=== PATIENT | female | born 1945 | race Caucasian/White ===

== ENCOUNTER 2022-11-30 15:27 | Inpatient (IN) | payer MEDICARE ==
[2022-11-30 19:21] LABS: Absolute Neutrophil Ct (ANC) 11.57 x10^3/uL (1.4-6.9); Basophil (Absolute #) 0.02 x10^3/uL (0-0.4); Eosinophil % 0.1 % (0.00-5.0); Eosinophil (Absolute #) 0.01 x10^3/uL (0-0.5); Hematocrit 46.4 % (35-47); Hemoglobin 14.3 g/dL (12.0-16.0); Lymphocyte (Absolute #) 0.89 x10^3/uL (1.0-4.6); Lymphocytes % 6.4 % (24.0-44.0); Mean Cell Volume 97.5 fL (78-100); Mean Corpuscular Hgb Concent. 30.8 g/dL (32-36); Mean Platelet Volume 11.6 fL (7.5-11.0); Monocyte (Absolute #) 1.34 x10^3/uL (0.0-1.3); Monocytes % 9.6 % (0.0-12.0); Neutrophil % 83.3 % (36.0-66.0); Platelet Count 349 x10^3/uL (150-450); Red Blood Count 4.76 x10^6/uL (4.1-5.4); Red Cell Distribution Width 15.8 % (11.5-14.0); White Blood Count 13.9 x10^3/uL (4.0-10.5)
[2022-11-30 19:35] LABS: ANION GAP 14.6 MEQ/L (5-15); BILIRUBIN,TOTAL 1.5 mg/dL (0.2-1.3); Calcium 9.2 mg/dL (8.4-10.2); Creatinine 1 1.3 mg/dL (0.52-1.04); EST GLOMERULAR FILTRATION RATE 42.4 ML/MIN; Potassium 4.2 mmol/L (3.5-5.1); Total Protein 7.1 g/dL (6.3-8.2)
[2022-11-30 20:06] LABS: INFLUENZA A NEGATIVE (NEGATIVE); INFLUENZA B NEGATIVE (NEGATIVE); RESPIRATORY SYNCTIAL VIRUS NEGATIVE (Negative); SARS-CoV-2 Xpert Express NEGATIVE (NEGATIVE)
[2022-11-30] MEDS ORDERED: Lasix 40 MG/4 ML IV SCH (21:30)
[2022-11-30] MEDS: Lactated Ringers 1,000 ML IV SCH (21:59)
[2022-11-30] MEDS ORDERED: ROCEPHIN 1 Gm-D5w 50 ml Bag** 1 G/50 ML IVPB IV SCH (22:00)
[2022-11-30 23:09] LABS: Appearance Cloudy (Clear); Bacteria Many /HPF (None Seen); Bilirubin Negative (Negative); Blood Moderate (Negative); Epithelial Cells Few /HPF (None Seen); Glucose, Urine Negative (Negative); Ketones 15 (Negative); Leukocyte Esterase Trace (Negative); Nitrite Negative (Negative); Ph 5.5 (4.6-8.0); Protein,Urine Dip >=1000 (Negative); RBC 0-2 /HPF (0-5)
[2022-11-30 23:10] LABS: Granular Casts 0-2 /LPF (None Seen)
[2022-11-30 23:56] LABS: ADD URINE CULTURE? ORDERED SEPARATELY (NO)
[2022-11-30] MEDS: HYDROCODONE-ACETAMIN 10-325 MG PO PRN (23:56)
[2022-12-01] MEDS: MORPHINE SULFATE 2 MG INJ IV PRN ×2 (00:56→10:01)
[2022-12-01 04:38] LABS: Hematocrit 41.2 % (35-47); Hemoglobin 12.9 g/dL (12.0-16.0); Mean Cell Volume 97.4 fL (78-100); Mean Corpuscular Hemoglobin 30.5 pg (26-32); Mean Corpuscular Hgb Concent. 31.3 g/dL (32-36); Mean Platelet Volume 11.5 fL (7.5-11.0); Platelet Count 336 x10^3/uL (150-450); Red Blood Count 4.23 x10^6/uL (4.1-5.4); Red Cell Distribution Width 15.9 % (11.5-14.0); White Blood Count 14.1 x10^3/uL (4.0-10.5)
[2022-12-01 04:56] LABS: ALBUMIN 3.3 g/dL (3.5-5.0); ANION GAP 11.2 MEQ/L (5-15); BILIRUBIN,TOTAL 1.2 mg/dL (0.2-1.3); Calcium 8.8 mg/dL (8.4-10.2); Creatinine 1 1.3 mg/dL (0.52-1.04); EST GLOMERULAR FILTRATION RATE 42.4 ML/MIN; Potassium 3.9 mmol/L (3.5-5.1); Total Protein 5.8 g/dL (6.3-8.2)
[2022-12-01] MEDS: APRESOLINE 20 MG/ML INJ IV PRN ×3 (07:21→12:15)
[2022-12-01] MEDS ORDERED: Requip 0.5 MG PO PRN (07:31)
--- NOTE | 2022-12-01 08:29 | XRAY ---
Indication: Acute mental status change. Multiple contiguous axial images obtained through the head without contrast. Comparison: May 13, 2007 Age-appropriate global atrophy. No acute intracranial hemorrhage, abnormal extra-axial fluid collection, or mass effect. Fourth ventricle is midline without hydrocephalus. Aguilera-white matter differentiation preserved. Bony calvarium is intact. Again partial opacification inferior right mastoid air cells presumed inflammatory. Remaining paranasal sinuses and left mastoid air cells are clear. Impression: Again partial opacification right mastoid air cells presumed inflammatory. Continued negative CT head without contrast exam.
--- NOTE | 2022-12-01 08:29 | XRAY ---
Indication: Acute mental status change. Frequent falls. Comparison: None AP pelvis and 2 view right hip demonstrates osteopenia, minimal bilateral hip joint space narrowing, mild lower lumbar degenerative changes, and extensive scattered vascular calcifications. No other bony, articular, or soft tissue abnormalities.
--- NOTE | 2022-12-01 08:31 | XRAY ---
Indication: Acute mental status change. Fall. Comparison: None Portable chest rotated demonstrating cardiomegaly, arteriosclerotic aorta, and mild pulmonary edema. No focal infiltrate, consolidation, or large effusion. Bony thorax intact with osteopenia and mild degenerative changes.
[2022-12-01] MEDS ORDERED: NON-FORMULARY ITEM (Amlodipine Besylate [Norvasc] 10 MG Tablet) PO SCH (10:00)
[2022-12-01] MEDS ORDERED: Neurontin PO SCH (10:00)
[2022-12-01] MEDS: Furosemide 100mg/10 ml Vial IV SCH (10:01)
[2022-12-01] MEDS: CLONIDINE 0.1 MG TABLET PO SCH ×3 (10:02→22:15)
[2022-12-01] MEDS: NORVASC 5 MG PO SCH ×2 (10:03→12:39)
[2022-12-01] MEDS: PLAVIX Tablet PO SCH ×2 (10:03→12:40)
[2022-12-01] MEDS: Maxzide-25MG Tablet PO SCH ×2 (10:03→12:40)
[2022-12-01] MEDS: ECOTRIN 81 MG PO SCH ×2 (10:03→12:39)
[2022-12-01] MEDS: COREG 12.5 MG PO SCH ×3 (10:03→22:14)
[2022-12-01] MEDS: Neurontin PO SCH ×4 (10:03→22:15)
[2022-12-01] MEDS: HYDROCODONE-ACETAMIN 10-325 MG PO PRN (12:45)
--- NOTE | 2022-12-01 12:46 | PCM.HP.ADD ---
Addendum to History & Physical - History & Physical Addendum Addendum to History & Physical: This certifies that the History & Physical in the electronic chart reflects the current health status of the patient. If there are changes in the H&P these changes/exceptions are listed as follows.
--- NOTE | 2022-12-01 12:51 | PCM.NOTE ---
Date and Time: 12/01/22 1246 Subjective Assessment: Pt has not been communicating well with sister or staff. Tells nurse "NO" to many questions. Not taking pills. However, she woke up to me to voice and said she was in the hospital, and the year was 2022 (couldn't tell me which hosp or which month). Said her back hurt, she's had problems with it, and her neck hurts. Took a sip of water for sister. - Review of Systems All Other Systems: Unable due to condition Objective Exam General Appearance: no apparent distress, alert Neurologic Exam: oriented x 3, cooperative Skin Exam: normal color, warm, dry, No rash Wound Assessment: Skin/Wound Assessment Wound/Incision Assessment Start: 11/30/22 18:23 Text: Status: Active Freq: Q6H Protocol: Document 12/01/22 07:23 ZAYRA (Rec: 12/01/22 07:24 ZAYRA [id number]) Wound/Incision Assessment Right Lower Other Wound Assessment Shift Assessment Wound Type Abrasion Wound Stage Non Pressure Wound Drainage Amount None Comment OPEN TO AIR, VERY DRY SKIN NOTED TO BILATERAL LOWER LEGS, BARRIER CREAM APPLIED TO LEGS Right Hip Wound Assessment Shift Assessment Wound Type BRUISE Wound Stage Non Pressure Wound Comment PURPLE BRUISE NOTED Right Elbow Wound Assessment Shift Assessment Wound Type BRUISE Wound Stage Non Pressure Wound Comment MAROON AND PURPLE BRUISE NOTED Left Buttock Wound Assessment Shift Assessment Wound Type Pressure Ulcer Wound Stage Stage II Drainage Amount None Comment SHEARING AND REDNESS ALSO NOTED, BARRIER CREAM APPLIED Right Buttock Wound Assessment Shift Assessment Wound Type Pressure Ulcer Wound Stage Stage II Drainage Amount None Comment SHEARING AND REDNESS ALSO NOTED, BARRIER CREAM APPLIED Wound Photo Photo Taken Yes Comment: PICTURES TAKEN UPON ADMISSION, IN CHART Eye Exam: eyes nml inspection Ears, Nose, Throat Exam: moist mucous membranes Neck Exam: normal inspection Respiratory Exam: diminished breath sounds, rhonchi (vs upper airway noises), No wheezing Cardiovascular Exam: normal heart sounds, tachycardia, No murmur Gastrointestinal/Abdomen Exam: soft, tenderness (mild, RUQ, but not reproduced on exam) Extremity Exam: other (chronic venous stasis changes. trace pretibial edema) OBJECTIVE DATA Vital Signs: Vital Signs - 24 hr Temp Pulse Resp BP BP Pulse Ox 12/01/22 12:00 98.0 F 89 16 192/78 96 12/01/22 07:29 94 L 12/01/22 07:20 97.9 F 83 20 187/79 94 L 12/01/22 04:00 96.8 F 92 H 16 180/77 94 L 12/01/22 01:33 92 H 178/73 11/30/22 23:24 100.6 F 100 H 11/30/22 20:30 100.2 F 99 H 18 178/89 94 L 11/30/22 19:48 99.9 F 102 H 22 193/115 97 11/30/22 19:34 94 L 11/30/22 17:07 93 L 11/30/22 16:58 96.8 F 102 H 20 170/81 86 L Pain Assessment - Last Documented Pain Intensity 8 Pain Scale Used 0-10 Pain Scale Intake and Output: Intake & Output 11/29/22 11/30/22 12/01/22 12/02/22 11:59 11:59 11:59 11:59 Intake Total 103 Output Total 1150 Balance -1047 Weight 69.8 kg Lab Results: Lab Results-Last 24 Hours 11/30/22 11/30/22 11/30/22 Range/Units 19:15 19:15 19:15 WBC 13.9 H (4.0-10.5) x10^3/uL RBC 4.76 (4.1-5.4) x10^6/uL Hgb 14.3 (12.0-16.0) g/dL Hct 46.4 (35-47) % MCV 97.5 (78-100) fL MCH 30.0 (26-32) pg MCHC 30.8 L (32-36) g/dL RDW 15.8 H (11.5-14.0) % Plt Count 349 (150-450) x10^3/uL MPV 11.6 H (7.5-11.0) fL Gran % 83.3 H (36.0-66.0) % Immature Gran % (Auto) 0.5 H (0.00-0.4) % Nucleat RBC Rel Count 0.0 (0.00-0.1) % Eos # (Auto) 0.01 (0-0.5) x10^3/uL Immature Gran # (Auto) 0.07 H (0.00-0.03) x10^3u/L Absolute Lymphs (auto) 0.89 L (1.0-4.6) x10^3/uL Absolute Monos (auto) 1.34 H (0.0-1.3) x10^3/uL Absolute Nucleated RBC 0.00 (0.00-0.01) x10^3u/L Lymphocytes % 6.4 L (24.0-44.0) % Monocytes % 9.6 (0.0-12.0) % Eosinophils % 0.1 (0.00-5.0) % Basophils % 0.1 (0.0-0.4) % Absolute Granulocytes 11.57 H (1.4-6.9) x10^3/uL Basophils # 0.02 (0-0.4) x10^3/uL Sodium 135 L (137-145) mmol/L Potassium 4.2 (3.5-5.1) mmol/L Chloride 98 (98-107) mmol/L Carbon Dioxide 27 (22-30) mmol/L Anion Gap 14.6 (5-15) MEQ/L BUN 29 H (7-17) mg/dL Creatinine 1.30 H (0.52-1.04) mg/dL Estimated GFR 42.4 ML/MIN Glucose 91 (74-106) mg/dL Calcium 9.2 (8.4-10.2) mg/dL Total Bilirubin 1.50 H (0.2-1.3) mg/dL AST 39 H (14-36) U/L ALT 16 (0-35) U/L Alkaline Phosphatase 85 (38-126) U/L Troponin I 2.090 H* (0.000-0.034) ng/mL NT-Pro-B Natriuret Pep (0-1800) pg/mL Serum Total Protein 7.1 (6.3-8.2) g/dL Albumin 4.0 (3.5-5.0) g/dL Prealbumin (17.6-36.0) mg/dL Urine Color (Yellow) Urine Appearance (Clear) Urine pH (4.6-8.0) Ur Specific Bridgman (1.005-1.030) Urine Protein (Negative) Urine Glucose (UA) (Negative) mg/dL Urine Ketones (Negative) Urine Blood (Negative) Urine Nitrite (Negative) Urine Bilirubin (Negative) Urine Urobilinogen (0.2) mg/dL Ur Leukocyte Esterase (Negative) U Hyaline Cast (Auto) (0-2) /LPF Urine Microscopic RBC (0-5) /HPF Urine Microscopic WBC (0-5) /HPF Ur Epithelial Cells (None Seen) /HPF Urine Bacteria (None Seen) /HPF Granular Casts (None Seen) /LPF Urine Culture Reflexed (NO) Influenza Type A Ag (NEGATIVE) Influenza Type B Ag (NEGATIVE) RSV (PCR) (Negative) SARS-CoV-2 (PCR) (NEGATIVE) 11/30/22 11/30/22 11/30/22 Range/Units 19:15 19:20 Unknown WBC (4.0-10.5) x10^3/uL RBC (4.1-5.4) x10^6/uL Hgb (12.0-16.0) g/dL Hct (35-47) % MCV (78-100) fL MCH (26-32) pg MCHC (32-36) g/dL RDW (11.5-14.0) % Plt Count (150-450) x10^3/uL MPV (7.5-11.0) fL Gran % (36.0-66.0) % Immature Gran % (Auto) (0.00-0.4) % Nucleat RBC Rel Count (0.00-0.1) % Eos # (Auto) (0-0.5) x10^3/uL Immature Gran # (Auto) (0.00-0.03) x10^3u/L Absolute Lymphs (auto) (1.0-4.6) x10^3/uL Absolute Monos (auto) (0.0-1.3) x10^3/uL Absolute Nucleated RBC (0.00-0.01) x10^3u/L Lymphocytes % (24.0-44.0) % Monocytes % (0.0-12.0) % Eosinophils % (0.00-5.0) % Basophils % (0.0-0.4) % Absolute Granulocytes (1.4-6.9) x10^3/uL Basophils # (0-0.4) x10^3/uL Sodium (137-145) mmol/L Potassium (3.5-5.1) mmol/L Chloride (98-107) mmol/L Carbon Dioxide (22-30) mmol/L Anion Gap (5-15) MEQ/L BUN (7-17) mg/dL Creatinine (0.52-1.04) mg/dL Estimated GFR ML/MIN Glucose (74-106) mg/dL Calcium (8.4-10.2) mg/dL Total Bilirubin (0.2-1.3) mg/dL AST (14-36) U/L ALT (0-35) U/L Alkaline Phosphatase (38-126) U/L Troponin I (0.000-0.034) ng/mL NT-Pro-B Natriuret Pep 44514 H (0-1800) pg/mL Serum Total Protein (6.3-8.2) g/dL Albumin (3.5-5.0) g/dL Prealbumin (17.6-36.0) mg/dL Urine Color Yellow (Yellow) Urine Appearance Cloudy A (Clear) Urine pH 5.5 (4.6-8.0) Ur Specific Brid[place] 1.020 (1.005-1.030) Urine Protein >=1000 A (Negative) Urine Glucose (UA) Negative (Negative) mg/dL Urine Ketones 15 A (Negative) Urine Blood Moderate A (Negative) Urine Nitrite Negative (Negative) Urine Bilirubin Negative (Negative) Urine Urobilinogen 1.0 A (0.2) mg/dL Ur Leukocyte Esterase Trace A (Negative) U Hyaline Cast (Auto) 3-5 A (0-2) /LPF Urine Microscopic RBC 0-2 (0-5) /HPF Urine Microscopic WBC 3-5 (0-5) /HPF Ur Epithelial Cells Few (None Seen) /HPF Urine Bacteria Many A (None Seen) /HPF Granular Casts 0-2 A (None Seen) /LPF Urine Culture Reflexed ORDERED SEPARATELY (NO) Influenza Type A Ag NEGATIVE (NEGATIVE) Influenza Type B Ag NEGATIVE (NEGATIVE) RSV (PCR) NEGATIVE (Negative) SARS-CoV-2 (PCR) NEGATIVE (NEGATIVE) 12/01/22 12/01/22 12/01/22 Range/Units 04:00 04:00 04:00 WBC 14.1 H (4.0-10.5) x10^3/uL RBC 4.23 (4.1-5.4) x10^6/uL Hgb 12.9 (12.0-16.0) g/dL Hct 41.2 (35-47) % MCV 97.4 (78-100) fL MCH 30.5 (26-32) pg MCHC 31.3 L (32-36) g/dL RDW 15.9 H (11.5-14.0) % Plt Count 336 (150-450) x10^3/uL MPV 11.5 H (7.5-11.0) fL Gran % (36.0-66.0) % Immature Gran % (Auto) (0.00-0.4) % Nucleat RBC Rel Count (0.00-0.1) % Eos # (Auto) (0-0.5) x10^3/uL Immature Gran # (Auto) (0.00-0.03) x10^3u/L Absolute Lymphs (auto) (1.0-4.6) x10^3/uL Absolute Monos (auto) (0.0-1.3) x10^3/uL Absolute Nucleated RBC (0.00-0.01) x10^3u/L Lymphocytes % (24.0-44.0) % Monocytes % (0.0-12.0) % Eosinophils % (0.00-5.0) % Basophils % (0.0-0.4) % Absolute Granulocytes (1.4-6.9) x10^3/uL Basophils # (0-0.4) x10^3/uL Sodium 134 L (137-145) mmol/L Potassium 3.9 (3.5-5.1) mmol/L Chloride 98 (98-107) mmol/L Carbon Dioxide 29 (22-30) mmol/L Anion Gap 11.2 (5-15) MEQ/L BUN 31 H (7-17) mg/dL Creatinine 1.30 H (0.52-1.04) mg/dL Estimated GFR 42.4 ML/MIN Glucose 83 (74-106) mg/dL Calcium 8.8 (8.4-10.2) mg/dL Total Bilirubin 1.20 (0.2-1.3) mg/dL AST 30 (14-36) U/L ALT 14 (0-35) U/L Alkaline Phosphatase 72 (38-126) U/L Troponin I (0.000-0.034) ng/mL NT-Pro-B Natriuret Pep 89520 H (0-1800) pg/mL Serum Total Protein 5.8 L (6.3-8.2) g/dL Albumin 3.3 L (3.5-5.0) g/dL Prealbumin 8.91 L (17.6-36.0) mg/dL Urine Color (Yellow) Urine Appearance (Clear) Urine pH (4.6-8.0) Ur Specific Bridg[place] (1.005-1.030) Urine Protein (Negative) Urine Glucose (UA) (Negative) mg/dL Urine Ketones (Negative) Urine Blood (Negative) Urine Nitrite (Negative) Urine Bilirubin (Negative) Urine Urobilinogen (0.2) mg/dL Ur Leukocyte Esterase (Negative) U Hyaline Cast (Auto) (0-2) /LPF Urine Microscopic RBC (0-5) /HPF Urine Microscopic WBC (0-5) /HPF Ur Epithelial Cells (None Seen) /HPF Urine Bacteria (None Seen) /HPF Granular Casts (None Seen) /LPF Urine Culture Reflexed (NO) Influenza Type A Ag (NEGATIVE) Influenza Type B Ag (NEGATIVE) RSV (PCR) (Negative) SARS-CoV-2 (PCR) (NEGATIVE) 12/01/22 Range/Units 04:00 WBC (4.0-10.5) x10^3/uL RBC (4.1-5.4) x10^6/uL Hgb (12.0-16.0) g/dL Hct (35-47) % MCV (78-100) fL MCH (26-32) pg MCHC (32-36) g/dL RDW (11.5-14.0) % Plt Count (150-450) x10^3/uL MPV (7.5-11.0) fL Gran % (36.0-66.0) % Immature Gran % (Auto) (0.00-0.4) % Nucleat RBC Rel Count (0.00-0.1) % Eos # (Auto) (0-0.5) x10^3/uL Immature Gran # (Auto) (0.00-0.03) x10^3u/L Absolute Lymphs (auto) (1.0-4.6) x10^3/uL Absolute Monos (auto) (0.0-1.3) x10^3/uL Absolute Nucleated RBC (0.00-0.01) x10^3u/L Lymphocytes % (24.0-44.0) % Monocytes % (0.0-12.0) % Eosinophils % (0.00-5.0) % Basophils % (0.0-0.4) % Absolute Granulocytes (1.4-6.9) x10^3/uL Basophils # (0-0.4) x10^3/uL Sodium (137-145) mmol/L Potassium (3.5-5.1) mmol/L Chloride (98-107) mmol/L Carbon Dioxide (22-30) mmol/L Anion Gap (5-15) MEQ/L BUN (7-17) mg/dL Creatinine (0.52-1.04) mg/dL Estimated GFR ML/MIN Glucose (74-106) mg/dL Calcium (8.4-10.2) mg/dL Total Bilirubin (0.2-1.3) mg/dL AST (14-36) U/L ALT (0-35) U/L Alkaline Phosphatase (38-126) U/L Troponin I 1.860 H* (0.000-0.034) ng/mL NT-Pro-B Natriuret Pep (0-1800) pg/mL Serum Total Protein (6.3-8.2) g/dL Albumin (3.5-5.0) g/dL Prealbumin (17.6-36.0) mg/dL Urine Color (Yellow) Urine Appearance (Clear) Urine pH (4.6-8.0) Ur Specific Brid[place] (1.005-1.030) Urine Protein (Negative) Urine Glucose (UA) (Negative) mg/dL Urine Ketones (Negative) Urine Blood (Negative) Urine Nitrite (Negative) Urine Bilirubin (Negative) Urine Urobilinogen (0.2) mg/dL Ur Leukocyte Esterase (Negative) U Hyaline Cast (Auto) (0-2) /LPF Urine Microscopic RBC (0-5) /HPF Urine Microscopic WBC (0-5) /HPF Ur Epithelial Cells (None Seen) /HPF Urine Bacteria (None Seen) /HPF Granular Casts (None Seen) /LPF Urine Culture Reflexed (NO) Influenza Type A Ag (NEGATIVE) Influenza Type B Ag (NEGATIVE) RSV (PCR) (Negative) SARS-CoV-2 (PCR) (NEGATIVE) Radiology Exams: Radiology Procedures Category Date Time Status CHEST 1 VIEW (PORTABLE) Stat Exams 11/30/22 18:58 Completed ECHO W/2D AND DOPPLER [US] Routine Exams 12/01/22 20:49 Taken HEAD WITHOUT CONTRAST [CT] Stat Exams 11/30/22 19:11 Completed HIP UNI (2V) INCL PEL IF DONE Stat Exams 11/30/22 19:09 Completed Multi-Disciplinary Progress Notes: Multi-Disciplinary Progress Notes 12/01/22 10:57 Case Management Note by Abimbola Shell PER PRIMARY RN REPORTS THAT PATIENT IS NORMALLY A&O AND INDEPENDENT. IT WAS REPORTED SHE SITS IN HER RECLINER AND SMOKES 2 PPD. PATIENT NOT ORIENTED AT THIS TIME, ONLY HOLLERS OUT. CALLED SISTER SAJI TO DISCUSS CM NEEDS. NO ANSWER-LM Initialized on 12/01/22 10:57 - END OF NOTE Assessment/Plan (1) AMS (altered mental status) Current Visit: Yes Status: Acute Qualifiers: Altered mental status type: unspecified Qualified Code(s): R41.82 - Altered mental status, unspecified Assessment & Plan: improved for me; I called back and per RN she had just taken all of her medications po no problem. Code(s): R41.82 - ALTERED MENTAL STATUS, UNSPECIFIED (2) UTI (urinary tract infection) Current Visit: Yes Status: Acute Qualifiers: Urinary tract infection type: acute cystitis Hematuria presence: without hematuria Qualified Code(s): N30.00 - Acute cystitis without hematuria Assessment & Plan: on rocephin Code(s): N39.0 - URINARY TRACT INFECTION, SITE NOT SPECIFIED (3) HTN (hypertension) Current Visit: Yes Status: Acute Qualifiers: Hypertension type: primary hypertension Qualified Code(s): I10 - Essential (primary) hypertension Assessment & Plan: should improve now that she's had her pills Code(s): I10 - ESSENTIAL (PRIMARY) HYPERTENSION (4) Back pain Current Visit: Yes Status: Acute Qualifiers: Back pain location: back pain in unspecified location Chronicity: chronic Back pain laterality: unspecified Qualified Code(s): M54.9 - Dorsalgia, unspecified; G89.29 - Other chronic pain Assessment & Plan: will add muscle relaxer, she feels like she gets spasms. Code(s): M54.9 - DORSALGIA, UNSPECIFIED (5) Elevated troponin Current Visit: Yes Status: Acute Assessment & Plan: Could have had acute coronary issue, but has never complained of chest pain today or yesterday and the troponin is trending down; if she did have an [place], it is resolving. Echo to be done today. Code(s): R77.8 - OTHER SPECIFIED ABNORMALITIES OF PLASMA PROTEINS (6) Elevated brain natriuretic peptide (BNP) level Current Visit: Yes Status: Acute Assessment & Plan: Clinically she is not a heart failure picture, but giving lasix as her BNP is extremely elevated. Code(s): R79.89 - OTHER SPECIFIED ABNORMAL FINDINGS OF BLOOD CHEMISTRY
[2022-12-01] MEDS ORDERED: MORPHINE SULFATE 4 MG INJ IV PRN (13:00)
--- NOTE | 2022-12-01 13:33 | ECHO ---
Transthoracic echocardiographic examination and color Doppler was done on 12/01/2022. INDICATION: Congestive heart failure. IMPRESSION: 1) REGIONAL WALL MOTION ABNORMALITY WITH MILD HYPOKINESIA OF THE DISTAL SEPTUM WITH ESTIMATED GLOBAL LEFT VENTRICULAR EJECTION FRACTION OF AROUND 50 TO 55%. 2) TRIVIAL MITRAL REGURGITATION. 3) MILD AORTIC REGURGITATION. 4) MILD TRICUSPID REGURGITATION. RIGHT VENTRICULAR SYSTOLIC PRESSURE OF 34 MM OF MERCURY. 5) LEFT VENTRICLE DIASTOLIC DYSFUNCTION. 6) LEFT VENTRICULAR HYPERTROPHY. 7) MILD PERICARDIAL EFFUSION. The left ventricle is visualized and demonstrated hypokinesia of the distal septum. Estimated global left ventricular ejection fraction around 50 to 55%. There is left ventricular hypertrophy. The mitral valve is seen and this opens adequately. There is trivial mitral regurgitation. Left atrium is normal. Tissue Doppler study of the lateral mitral annulus suggestive of left ventricle diastolic dysfunction. The aortic valve is sclerotic but opens adequately. The peak gradient across the aortic valve is 10 mm of Mercury. There is mild aortic regurgitation. The right side chambers are normal. There is mild tricuspid regurgitation. The right ventricular systolic pressure of 34 mm of Mercury. There is also some mild pericardial effusion.
[2022-12-01] MEDS: Cyclobenzaprine 10 MG PO SCH ×2 (15:09→22:14)
[2022-12-01] MEDS: Lactated Ringers 1,000 ML IV SCH (16:50)
[2022-12-01] MEDS: ROCEPHIN 1 Gm-D5w 50 ml Bag** 1 G/50 ML IVPB IV SCH (22:18)
[2022-12-02 08:31] LABS: Basophil (Absolute #) 0.02 x10^3/uL (0-0.4); Eosinophil % 0.4 % (0.00-5.0); Eosinophil (Absolute #) 0.03 x10^3/uL (0-0.5); Hemoglobin 11.5 g/dL (12.0-16.0); Lymphocyte (Absolute #) 1.66 x10^3/uL (1.0-4.6); Lymphocytes % 19.8 % (24.0-44.0); Mean Cell Volume 96.6 fL (78-100); Mean Corpuscular Hgb Concent. 31.1 g/dL (32-36); Mean Platelet Volume 11.3 fL (7.5-11.0); Monocyte (Absolute #) 1.03 x10^3/uL (0.0-1.3); Monocytes % 12.3 % (0.0-12.0); Neutrophil % 66.9 % (36.0-66.0); Platelet Count 242 x10^3/uL (150-450); Red Blood Count 3.83 x10^6/uL (4.1-5.4); Red Cell Distribution Width 15.8 % (11.5-14.0); White Blood Count 8.4 x10^3/uL (4.0-10.5)
[2022-12-02] MEDS: COREG 12.5 MG PO SCH ×2 (08:50→22:16)
[2022-12-02] MEDS: CLONIDINE 0.1 MG TABLET PO SCH ×2 (08:50→22:16)
[2022-12-02] MEDS: Maxzide-25MG Tablet PO SCH (08:50)
[2022-12-02] MEDS: ECOTRIN 81 MG PO SCH (08:50)
[2022-12-02] MEDS: Neurontin PO SCH ×3 (08:50→22:15)
[2022-12-02] MEDS: Cyclobenzaprine 10 MG PO SCH ×3 (08:50→22:16)
[2022-12-02] MEDS: NORVASC 5 MG PO SCH (08:50)
[2022-12-02] MEDS: PLAVIX Tablet PO SCH (08:51)
[2022-12-02] MEDS: Furosemide 100mg/10 ml Vial IV SCH (08:51)
[2022-12-02] MEDS: HYDROCODONE-ACETAMIN 10-325 MG PO PRN ×2 (08:55→22:15)
[2022-12-02 09:11] LABS: ALBUMIN 2.9 g/dL (3.5-5.0); ANION GAP 8.5 MEQ/L (5-15); BILIRUBIN,TOTAL 0.8 mg/dL (0.2-1.3); Calcium 7.8 mg/dL (8.4-10.2); Creatinine 1 2.11 mg/dL (0.52-1.04); EST GLOMERULAR FILTRATION RATE 24.3 ML/MIN; Potassium 3.4 mmol/L (3.5-5.1); Total Protein 5.3 g/dL (6.3-8.2)
[2022-12-02] MEDS ORDERED: PROVENTIL 2.5 MG/3 ML NEB IH ONE (11:22)
[2022-12-02] MEDS: PROVENTIL 2.5 MG/3 ML NEB IH SCH ×4 (11:31→22:24)
[2022-12-02] MEDS: Nicoderm CQ 21 MG TOP SCH (11:33)
[2022-12-02] MEDS: ENOXAPARIN SODIUM SQ SCH (11:33)
--- NOTE | 2022-12-02 12:33 | PCM.NOTE ---
Date and Time: 12/02/22 1230 Subjective Assessment: Pt way more awake for RN this morning, ate breakfast and took pills. Was asleep when I entered; woke to voice, oriented to place and time but not as cooperative and didn't know who I was at first. Objective Exam General Appearance: no apparent distress, other (somnolent during part of interview) Neurologic Exam: disoriented, uncooperative Skin Exam: normal color, warm, dry, No rash Wound Assessment: Skin/Wound Assessment Wound/Incision Assessment Start: 11/30/22 18:23 Text: Status: Active Freq: Q6H Protocol: Document 12/02/22 07:56 ZAYRA (Rec: 12/02/22 07:56 ZAYRA [id number]) Wound/Incision Assessment Right Lower Other Wound Assessment Shift Assessment Wound Type Abrasion Wound Stage Non Pressure Wound Drainage Amount None Comment open to air Right Hip Wound Assessment Shift Assessment Wound Type BRUISE Wound Stage Non Pressure Wound Comment purple bruise Right Elbow Wound Assessment Shift Assessment Wound Type BRUISE Wound Stage Non Pressure Wound Comment maroon and purple bruise Left Buttock Wound Assessment Shift Assessment Wound Type Pressure Ulcer Wound Stage Stage II Drainage Amount None Comment shearing and redness, barrier cream applied PRN Right Buttock Wound Assessment Shift Assessment Wound Type Pressure Ulcer Wound Stage Stage II Drainage Amount None Comment also redness and shearing noted, barrier cream PRN Wound Photo Photo Taken Yes Comment: in chart Eye Exam: eyes nml inspection Ears, Nose, Throat Exam: moist mucous membranes Neck Exam: normal inspection Respiratory Exam: diminished breath sounds (good air exchange), wheezing (throughout), No crackles/rales, No rhonchi Cardiovascular Exam: regular rate/rhythm, normal heart sounds, No murmur Gastrointestinal/Abdomen Exam: soft, normal bowel sounds, No tenderness, No distention, No mass, No guarding Extremity Exam: normal inspection, No pedal edema, No swelling OBJECTIVE DATA Vital Signs: Vital Signs - 24 hr Temp Pulse Resp BP Pulse Ox 12/02/22 12:00 97.8 F 65 21 93/55 100 12/02/22 11:37 60 16 100 12/02/22 07:39 100 12/02/22 07:01 97.9 F 63 13 112/55 100 12/02/22 05:07 99.1 F 65 16 110/45 100 12/01/22 23:54 99.4 F 68 16 79/41 84 L 12/01/22 20:00 97.0 F 75 21 109/56 94 L 12/01/22 19:57 92 L 12/01/22 16:00 97.8 F 69 16 96/52 94 L Pain Assessment - Last Documented Pain Intensity 0 Pain Scale Used 0-10 Pain Scale Intake and Output: Intake & Output 11/30/22 12/01/22 12/02/22 12/03/22 11:59 11:59 11:59 11:59 Intake Total 103 504 Output Total 1150 1350 Balance -1047 -846 Weight 69.8 kg Lab Results: Lab Results-Last 24 Hours 12/02/22 12/02/22 Range/Units 08:20 08:20 WBC 8.4 (4.0-10.5) x10^3/uL RBC 3.83 L (4.1-5.4) x10^6/uL Hgb 11.5 L (12.0-16.0) g/dL Hct 37.0 (35-47) % MCV 96.6 (78-100) fL MCH 30.0 (26-32) pg MCHC 31.1 L (32-36) g/dL RDW 15.8 H (11.5-14.0) % Plt Count 242 (150-450) x10^3/uL MPV 11.3 H (7.5-11.0) fL Gran % 66.9 H (36.0-66.0) % Immature Gran % (Auto) 0.4 (0.00-0.4) % Nucleat RBC Rel Count 0.0 (0.00-0.1) % Eos # (Auto) 0.03 (0-0.5) x10^3/uL Immature Gran # (Auto) 0.03 (0.00-0.03) x10^3u/L Absolute Lymphs (auto) 1.66 (1.0-4.6) x10^3/uL Absolute Monos (auto) 1.03 (0.0-1.3) x10^3/uL Absolute Nucleated RBC 0.00 (0.00-0.01) x10^3u/L Lymphocytes % 19.8 L (24.0-44.0) % Monocytes % 12.3 H (0.0-12.0) % Eosinophils % 0.4 (0.00-5.0) % Basophils % 0.2 (0.0-0.4) % Absolute Granulocytes 5.60 (1.4-6.9) x10^3/uL Basophils # 0.02 (0-0.4) x10^3/uL Sodium 132 L (137-145) mmol/L Potassium 3.4 L (3.5-5.1) mmol/L Chloride 94 L (98-107) mmol/L Carbon Dioxide 33 H (22-30) mmol/L Anion Gap 8.5 (5-15) MEQ/L BUN 38 H (7-17) mg/dL Creatinine 2.11 H (0.52-1.04) mg/dL Estimated GFR 24.3 ML/MIN Glucose 83 (74-106) mg/dL Calcium 7.8 L (8.4-10.2) mg/dL Total Bilirubin 0.80 (0.2-1.3) mg/dL AST 28 (14-36) U/L ALT 14 (0-35) U/L Alkaline Phosphatase 53 (38-126) U/L NT-Pro-B Natriuret Pep 51334 H (0-1800) pg/mL Serum Total Protein 5.3 L (6.3-8.2) g/dL Albumin 2.9 L (3.5-5.0) g/dL Radiology Exams: Radiology Procedures Category Date Time Status CHEST 1 VIEW (PORTABLE) Stat Exams 11/30/22 18:58 Completed ECHO W/2D AND DOPPLER [US] Routine Exams 12/01/22 20:49 Draft HEAD WITHOUT CONTRAST [CT] Stat Exams 11/30/22 19:11 Completed HIP UNI (2V) INCL PEL IF DONE Stat Exams 11/30/22 19:09 Completed Assessment/Plan (1) AMS (altered mental status) Current Visit: Yes Status: Acute Qualifiers: Altered mental status type: unspecified Qualified Code(s): R41.82 - Altered mental status, unspecified Assessment & Plan: improved today. May be due to UTI. Code(s): R41.82 - ALTERED MENTAL STATUS, UNSPECIFIED (2) UTI (urinary tract infection) Current Visit: Yes Status: Acute Qualifiers: Urinary tract infection type: acute cystitis Hematuria presence: without hematuria Qualified Code(s): N30.00 - Acute cystitis without hematuria Assessment & Plan: afebrile in past 24h. ID and sens pending. On rocephin IV day #2. Code(s): N39.0 - URINARY TRACT INFECTION, SITE NOT SPECIFIED (3) HTN (hypertension) Current Visit: Yes Status: Acute Qualifiers: Hypertension type: primary hypertension Qualified Code(s): I10 - Essential (primary) hypertension Code(s): I10 - ESSENTIAL (PRIMARY) HYPERTENSION (4) Back pain Current Visit: Yes Status: Acute Qualifiers: Back pain location: back pain in unspecified location Chronicity: chronic Back pain laterality: unspecified Qualified Code(s): M54.9 - Dorsalgia, unspecified; G89.29 - Other chronic pain Assessment & Plan: denies today. Code(s): M54.9 - DORSALGIA, UNSPECIFIED (5) Elevated troponin Current Visit: Yes Status: Acute Code(s): R77.8 - OTHER SPECIFIED ABNORMALITIES OF PLASMA PROTEINS (6) Elevated brain natriuretic peptide (BNP) level Current Visit: Yes Status: Acute Assessment & Plan: decreased today. However her renal function is worse, so decreasing lasix to 40mg po daily. Code(s): R79.89 - OTHER SPECIFIED ABNORMAL FINDINGS OF BLOOD CHEMISTRY (7) Frequent falls Current Visit: Yes Status: Acute Assessment & Plan: PT to consult. May need rehab stay. Code(s): R29.6 - REPEATED FALLS (8) Poor social situation Current Visit: Yes Status: Acute Assessment & Plan: Per sister, pt's house is terribly dirty. Had been sitting in her urine in her chair at home per staff. Per sister, pt also has a dog which urinates and stools in the house. Code(s): Z65.9 - PROBLEM RELATED TO UNSPECIFIED PSYCHOSOCIAL CIRCUMSTANCES
[2022-12-02] MEDS: Lactated Ringers 1,000 ML IV SCH (13:01)
[2022-12-02] MEDS: ROCEPHIN 1 Gm-D5w 50 ml Bag** 1 G/50 ML IVPB IV SCH (22:16)
[2022-12-03] MEDS: PROVENTIL 2.5 MG/3 ML NEB IH SCH ×6 (03:11→22:52)
[2022-12-03 05:46] LABS: Absolute Neutrophil Ct (ANC) 4.73 x10^3/uL (1.4-6.9); Basophil (Absolute #) 0.02 x10^3/uL (0-0.4); Eosinophil % 1.4 % (0.00-5.0); Hemoglobin 11.5 g/dL (12.0-16.0); Lymphocyte (Absolute #) 1.63 x10^3/uL (1.0-4.6); Lymphocytes % 22.5 % (24.0-44.0); Mean Cell Volume 97.2 fL (78-100); Mean Corpuscular Hemoglobin 29.4 pg (26-32); Mean Corpuscular Hgb Concent. 30.3 g/dL (32-36); Mean Platelet Volume 11.8 fL (7.5-11.0); Monocyte (Absolute #) 0.76 x10^3/uL (0.0-1.3); Monocytes % 10.5 % (0.0-12.0); Platelet Count 214 x10^3/uL (150-450); Red Blood Count 3.91 x10^6/uL (4.1-5.4); Red Cell Distribution Width 15.6 % (11.5-14.0); White Blood Count 7.3 x10^3/uL (4.0-10.5)
[2022-12-03 06:20] LABS: ALBUMIN 2.8 g/dL (3.5-5.0); ANION GAP 6.4 MEQ/L (5-15); BILIRUBIN,TOTAL 0.4 mg/dL (0.2-1.3); Calcium 7.5 mg/dL (8.4-10.2); Creatinine 1 2.34 mg/dL (0.52-1.04); EST GLOMERULAR FILTRATION RATE 21.5 ML/MIN; Potassium 3.6 mmol/L (3.5-5.1); Total Protein 5.2 g/dL (6.3-8.2)
[2022-12-03] MEDS: Lactated Ringers 1,000 ML IV SCH (08:43)
[2022-12-03] MEDS: ENOXAPARIN SODIUM SQ SCH (08:58)
[2022-12-03] MEDS: Maxzide-25MG Tablet PO SCH (08:59)
[2022-12-03] MEDS: CLONIDINE 0.1 MG TABLET PO SCH ×2 (08:59→19:47)
[2022-12-03] MEDS: Cyclobenzaprine 10 MG PO SCH ×3 (08:59→19:46)
[2022-12-03] MEDS: Neurontin PO SCH ×3 (08:59→19:46)
[2022-12-03] MEDS: COREG 12.5 MG PO SCH ×2 (08:59→19:47)
[2022-12-03] MEDS: NORVASC 5 MG PO SCH (08:59)
[2022-12-03] MEDS: ECOTRIN 81 MG PO SCH (08:59)
[2022-12-03] MEDS: PLAVIX Tablet PO SCH (08:59)
[2022-12-03] MEDS: Nicoderm CQ 21 MG TOP SCH (08:59)
--- NOTE | 2022-12-03 09:35 | XRAY ---
Indication: Wheezing. Comparison: November 30, 2022 Portable chest again demonstrates cardiomegaly with new moderate right and mild left effusions/atelectasis concerning for cardiac decompensation/CHF. Superimposed pneumonia not completely excluded.
--- NOTE | 2022-12-03 09:36 | PCM.NOTE ---
Date and Time: 12/03/22931 Subjective Assessment: Pt is feeling much better. Alert and oriented x 3 this morning. Remembers what she ate yesterday. Concerned that she not get pneumonia while here. c/o spasms in her back intermittently that are chronic. - Review of Systems Constitutional: Weakness, No Fever Respiratory: Cough, Short Of Breath Abdominal/Gastrointestinal: No Vomiting Objective Exam General Appearance: no apparent distress, alert Neurologic Exam: oriented x 3, cooperative, normal mood/affect Skin Exam: normal color, warm, dry, No rash Wound Assessment: Skin/Wound Assessment Wound/Incision Assessment Start: 11/30/22 18:23 Text: Status: Active Freq: Q6H Protocol: Document 12/03/22 07:14 ZAYRA (Rec: 12/03/22 07:14 [email or web address] [id number]) Wound/Incision Assessment Right Lower Other Wound Assessment Shift Assessment Wound Type Abrasion Wound Stage Non Pressure Wound Drainage Amount None Comment open to air Right Hip Wound Assessment Shift Assessment Wound Type BRUISE Wound Stage Non Pressure Wound Comment purple bruise Right Elbow Wound Assessment Shift Assessment Wound Type BRUISE Wound Stage Non Pressure Wound Comment maroon and purple bruise Left Buttock Wound Assessment Shift Assessment Wound Type Pressure Ulcer Wound Stage Stage II Drainage Amount None Comment shearing and redness, barrier cream applied PRN Right Buttock Wound Assessment Shift Assessment Wound Type Pressure Ulcer Wound Stage Stage II Drainage Amount None Comment also redness and shearing noted, barrier cream PRN Wound Photo Photo Taken Yes Comment: in chart Eye Exam: eyes nml inspection Ears, Nose, Throat Exam: moist mucous membranes Neck Exam: normal inspection Respiratory Exam: diminished breath sounds (fair to good air exchange), wheezing (throughout), No crackles/rales, No rhonchi Cardiovascular Exam: regular rate/rhythm, normal heart sounds, No murmur Gastrointestinal/Abdomen Exam: soft, normal bowel sounds, No tenderness, No distention, No mass, No guarding, No rebound Extremity Exam: normal inspection, other (chronic venous stasis change), No pedal edema, No swelling OBJECTIVE DATA Vital Signs: Vital Signs - 24 hr Temp Pulse Resp BP Pulse Ox 12/03/22 07:26 68 16 94 L 12/03/22 07:12 98.6 F 59 L 16 131/61 96 12/03/22 04:00 97.5 F 56 L 16 117/55 92 L 12/03/22 03:13 55 L 18 95 12/03/22 00:00 97.1 F 67 17 128/60 90 L 12/02/22 22:24 68 20 91 L 12/02/22 19:55 71 F 64 18 117/55 93 L 12/02/22 19:13 60 16 93 L 12/02/22 15:54 98.0 F 64 16 105/49 95 12/02/22 14:38 109 H 18 91 L 12/02/22 12:00 97.8 F 65 21 93/55 100 12/02/22 11:37 60 16 100 Pain Assessment - Last Documented Pain Intensity 0 Pain Scale Used 0-10 Pain Scale Intake and Output: Intake & Output 11/30/22 12/01/22 12/02/22 12/03/22 11:59 11:59 11:59 11:59 Intake Total 103 504 640 Output Total 1150 1350 Balance -1047 -846 640 Weight 69.8 kg Lab Results: Lab Results-Last 24 Hours 12/02/22 12/03/22 12/03/22 Range/Units 08:20 05:47 05:47 WBC 8.4 7.3 (4.0-10.5) x10^3/uL RBC 3.83 L 3.91 L (4.1-5.4) x10^6/uL Hgb 11.5 L 11.5 L (12.0-16.0) g/dL Hct 37.0 38.0 (35-47) % MCV 96.6 97.2 (78-100) fL MCH 30.0 29.4 (26-32) pg MCHC 31.1 L 30.3 L (32-36) g/dL RDW 15.8 H 15.6 H (11.5-14.0) % Plt Count 242 214 (150-450) x10^3/uL MPV 11.3 H 11.8 H (7.5-11.0) fL Gran % 66.9 H 65.0 (36.0-66.0) % Immature Gran % (Auto) 0.4 0.3 (0.00-0.4) % Nucleat RBC Rel Count 0.0 0.0 (0.00-0.1) % Eos # (Auto) 0.03 0.10 (0-0.5) x10^3/uL Immature Gran # (Auto) 0.03 0.02 (0.00-0.03) x10^3u/L Absolute Lymphs (auto) 1.66 1.63 (1.0-4.6) x10^3/uL Absolute Monos (auto) 1.03 0.76 (0.0-1.3) x10^3/uL Absolute Nucleated RBC 0.00 0.00 (0.00-0.01) x10^3u/L Lymphocytes % 19.8 L 22.5 L (24.0-44.0) % Monocytes % 12.3 H 10.5 (0.0-12.0) % Eosinophils % 0.4 1.4 (0.00-5.0) % Basophils % 0.2 0.3 (0.0-0.4) % Absolute Granulocytes 5.60 4.73 (1.4-6.9) x10^3/uL Basophils # 0.02 0.02 (0-0.4) x10^3/uL Sodium 130 L (137-145) mmol/L Potassium 3.6 (3.5-5.1) mmol/L Chloride 92 L (98-107) mmol/L Carbon Dioxide 34 H (22-30) mmol/L Anion Gap 6.4 (5-15) MEQ/L BUN 50 H (7-17) mg/dL Creatinine 2.34 H (0.52-1.04) mg/dL Estimated GFR 21.5 ML/MIN Glucose 97 (74-106) mg/dL Calcium 7.5 L (8.4-10.2) mg/dL Total Bilirubin 0.40 (0.2-1.3) mg/dL AST 34 (14-36) U/L ALT 17 (0-35) U/L Alkaline Phosphatase 65 (38-126) U/L NT-Pro-B Natriuret Pep 19628 H (0-1800) pg/mL Serum Total Protein 5.2 L (6.3-8.2) g/dL Albumin 2.8 L (3.5-5.0) g/dL Radiology Exams: Radiology Procedures Category Date Time Status CHEST 1 VIEW (PORTABLE) Routine Exams 12/03/22 09:14 Taken ECHO W/2D AND DOPPLER [US] Routine Exams 12/01/22 20:49 Completed Multi-Disciplinary Progress Notes: Multi-Disciplinary Progress Notes 12/02/22 12:56 Physical Therapy Note by Blanquita(#[id number] Pt refused PT eval 2x this morning. Initial refusal was due to pain in B LE. Pt and nurse noted recent pain medical historian and we agreed to try again 30 minutes later. When PT returned pt was very drowzy from pain meds. Pt was not able to stay alert enough to attempt eval. Initialized on 12/02/22 12:56 - END OF NOTE Assessment/Plan (1) UTI (urinary tract infection) Current Visit: Yes Status: Acute Qualifiers: Urinary tract infection type: acute cystitis Hematuria presence: without hematuria Qualified Code(s): N30.00 - Acute cystitis without hematuria Assessment & Plan: Will continue IV rocephin. Cx is susceptible. Code(s): N39.0 - URINARY TRACT INFECTION, SITE NOT SPECIFIED (2) AMS (altered mental status) Current Visit: Yes Status: Resolved Qualifiers: Altered mental status type: unspecified Qualified Code(s): R41.82 - Altered mental status, unspecified Code(s): R41.82 - ALTERED MENTAL STATUS, UNSPECIFIED (3) HTN (hypertension) Current Visit: Yes Status: Chronic Qualifiers: Hypertension type: primary hypertension Qualified Code(s): I10 - Essential (primary) hypertension Assessment & Plan: On her home meds. BP down to 79/41 in past 24h, and as high as 192/78, so quite labile. Code(s): I10 - ESSENTIAL (PRIMARY) HYPERTENSION (4) Back pain Current Visit: Yes Status: Chronic Qualifiers: Back pain location: back pain in unspecified location Chronicity: chronic Back pain laterality: unspecified Qualified Code(s): M54.9 - Dorsalgia, unspecified; G89.29 - Other chronic pain Code(s): M54.9 - DORSALGIA, UNSPECIFIED (5) Elevated brain natriuretic peptide (BNP) level Current Visit: Yes Status: Acute Assessment & Plan: Down today, with decreased eGFR, so stopping the lasix for today. recheck in a.m. Code(s): R79.89 - OTHER SPECIFIED ABNORMAL FINDINGS OF BLOOD CHEMISTRY (6) Frequent falls Current Visit: Yes Status: Acute Assessment & Plan: likely UTI contributed, but now has deconditioning. Code(s): R29.6 - REPEATED FALLS (7) Poor social situation Current Visit: Yes Status: Chronic Code(s): Z65.9 - PROBLEM RELATED TO UNSPECIFIED PSYCHOSOCIAL CIRCUMSTANCES
[2022-12-03] MEDS: solu-MEDROL 40 MG, Sterile H2O 10 ml 1 ML IV SCH ×4 (09:53→19:48)
[2022-12-03] MEDS ORDERED: Lasix 40 MG/4 ML IV SCH (10:00)
[2022-12-03] MEDS: Zithromax 500 MG/ 250 ML NaCl Premix 500 MG/250 ML IVPB IV SCH (10:49)
[2022-12-03] MEDS: HYDROCODONE-ACETAMIN 10-325 MG PO PRN ×2 (14:30→19:44)
[2022-12-03] MEDS: ROCEPHIN 1 Gm-D5w 50 ml Bag** 1 G/50 ML IVPB IV SCH (19:51)
[2022-12-04 05:41] LABS: Absolute Neutrophil Ct (ANC) 5.88 x10^3/uL (1.4-6.9); Basophil (Absolute #) 0 x10^3/uL (0-0.4); Eosinophil (Absolute #) 0 x10^3/uL (0-0.5); Hematocrit 40.8 % (35-47); Lymphocyte (Absolute #) 0.27 x10^3/uL (1.0-4.6); Lymphocytes % 4.3 % (24.0-44.0); Mean Cell Volume 95.6 fL (78-100); Mean Corpuscular Hemoglobin 30.4 pg (26-32); Mean Corpuscular Hgb Concent. 31.9 g/dL (32-36); Mean Platelet Volume 11.4 fL (7.5-11.0); Monocyte (Absolute #) 0.07 x10^3/uL (0.0-1.3); Monocytes % 1.1 % (0.0-12.0); Neutrophil % 94.4 % (36.0-66.0); Platelet Count 227 x10^3/uL (150-450); Red Blood Count 4.27 x10^6/uL (4.1-5.4); White Blood Count 6.2 x10^3/uL (4.0-10.5)
[2022-12-04 06:26] LABS: ALBUMIN 3.5 g/dL (3.5-5.0); ANION GAP 8.3 MEQ/L (5-15); BILIRUBIN,TOTAL 0.5 mg/dL (0.2-1.3); Creatinine 1 1.72 mg/dL (0.52-1.04); EST GLOMERULAR FILTRATION RATE 30.7 ML/MIN; Potassium 4.1 mmol/L (3.5-5.1); Total Protein 6.2 g/dL (6.3-8.2)
[2022-12-04] MEDS ORDERED: PROVENTIL 2.5 MG/3 ML NEB IH SCH ×2 (07:00→13:00)
[2022-12-04 09:09] LABS: Slide Review 1 YES
--- NOTE | 2022-12-04 09:11 | XRAY ---
Indication: Left facial paresthesia and weakness. Multiple contiguous axial images obtained through the head without contrast. Comparison: November 30, 2022 Again age-appropriate global atrophy. No acute intracranial hemorrhage, abnormal extra-axial fluid collection, or mass effect. Fourth ventricle is midline without hydrocephalus. Aguilera-white matter differentiation preserved. Bony calvarium intact. Stable partial opacification right mastoid air cells. Impression: Stable partial opacification right mastoid air cells presumed inflammatory. Otherwise continued negative CT head without contrast exam. MRI may yield further information if there remains further clinical concern.
[2022-12-04] MEDS: Neurontin PO SCH (09:25)
[2022-12-04] MEDS: Maxzide-25MG Tablet PO SCH (09:25)
[2022-12-04] MEDS: NORVASC 5 MG PO SCH (09:25)
[2022-12-04] MEDS: Cyclobenzaprine 10 MG PO SCH (09:25)
[2022-12-04] MEDS: ECOTRIN 81 MG PO SCH (09:26)
[2022-12-04] MEDS: CLONIDINE 0.1 MG TABLET PO SCH (09:26)
[2022-12-04] MEDS: PLAVIX Tablet PO SCH (09:26)
[2022-12-04] MEDS: COREG 12.5 MG PO SCH (09:26)
[2022-12-04] MEDS: solu-MEDROL 40 MG, Sterile H2O 10 ml 1 ML IV SCH ×2 (09:28)
[2022-12-04] MEDS: Zithromax 500 MG/ 250 ML NaCl Premix 500 MG/250 ML IVPB IV SCH (09:37)
[2022-12-04] MEDS: ENOXAPARIN SODIUM SQ SCH (09:38)
[2022-12-04] MEDS: Nicoderm CQ 21 MG TOP SCH (09:39)
[2022-12-04] MEDS ORDERED: Lasix 40 MG/4 ML IV SCH (10:00)
[2022-12-04] MEDS ORDERED: Acidophilus TABLET PO SCH (10:00)
[2022-12-04 12:01] VITALS: BP 124/57; PULSE 76; O2SAT 91
--- NOTE | 2022-12-04 14:29 | PCM.DS ---
Discharge Summary Date of Admission: 12/02/22 12:30 Admitting Physician: JAIME CLAIRE Primary Care Provider: JAIME CLAIRE Allergies Allergies No Known Drug Allergies Allergy (Unverified 11/30/22 20:07) Hospital Summary - Hospital Course Hospital Course: Pt is a 77 yo female pt of mine from [facility] with PMHx HTN, COPD, osteoporosis, idiopathic peripheral nerve disease, and PVD who was admitted directly from office with AMS and falls and found to have UTI. Her BNP was quite elevated and she was give IV lasix until yesterday; starting on po lasix today. She improved over the course of 3 days and is now completely oriented. She remains weak and a fall risk. She is going to be admitted to LTCF upon hospital discharge. CXR initially was nonacute. Hip XR nonacute. Echocardiogram done and report pending. CT head done this morning as she reported about 36 h of pins and needles sensation to L half of the face. Repeat CXR with question of pneumonia so zithromax was added to her rocephin. Pt will be discharged on po antibiotic (augmentin, 3 more days)and lactobacillus. - Vitals & Intake/Output Vital Signs: Vital Signs Temperature 98.1 F 12/04/22 12:00 Pulse Rate 76 12/04/22 12:00 Respiratory Rate 16 12/04/22 12:00 Blood Pressure 124/57 12/04/22 12:00 O2 Sat by Pulse Oximetry 91 L 12/04/22 12:00 Intake & Output: Intake & Output 12/02/22 12/03/22 12/04/22 12/05/22 11:59 11:59 11:59 11:59 Intake Total 504 640 692 Output Total 1350 3150 Balance -796 430 -5108 - Lab Result Diagrams: 12/04/22 04:45 12/04/22 04:45 Lab Results-Last 24 Hrs: Lab Results-Last 24 Hours 12/04/22 12/04/22 Range/Units 04:45 04:45 WBC 6.2 (4.0-10.5) x10^3/uL RBC 4.27 (4.1-5.4) x10^6/uL Hgb 13.0 (12.0-16.0) g/dL Hct 40.8 (35-47) % MCV 95.6 (78-100) fL MCH 30.4 (26-32) pg MCHC 31.9 L (32-36) g/dL RDW 15.0 H (11.5-14.0) % Plt Count 227 (150-450) x10^3/uL MPV 11.4 H (7.5-11.0) fL Gran % 94.4 H (36.0-66.0) % Immature Gran % (Auto) 0.2 (0.00-0.4) % Nucleat RBC Rel Count 0.0 (0.00-0.1) % Eos # (Auto) 0 (0-0.5) x10^3/uL Immature Gran # (Auto) 0.01 (0.00-0.03) x10^3u/L Absolute Lymphs (auto) 0.27 L (1.0-4.6) x10^3/uL Absolute Monos (auto) 0.07 (0.0-1.3) x10^3/uL Absolute Nucleated RBC 0.00 (0.00-0.01) x10^3u/L Lymphocytes % 4.3 L (24.0-44.0) % Monocytes % 1.1 (0.0-12.0) % Eosinophils % 0.0 (0.00-5.0) % Basophils % 0.0 (0.0-0.4) % Absolute Granulocytes 5.88 (1.4-6.9) x10^3/uL Basophils # 0 (0-0.4) x10^3/uL Sodium 128 L (137-145) mmol/L Potassium 4.1 (3.5-5.1) mmol/L Chloride 89 L (98-107) mmol/L Carbon Dioxide 35 H (22-30) mmol/L Anion Gap 8.3 (5-15) MEQ/L BUN 59 H (7-17) mg/dL Creatinine 1.72 H (0.52-1.04) mg/dL Estimated GFR 30.7 ML/MIN Glucose 150 H (74-106) mg/dL Calcium 8.0 L (8.4-10.2) mg/dL Total Bilirubin 0.50 (0.2-1.3) mg/dL AST 24 (14-36) U/L ALT 19 (0-35) U/L Alkaline Phosphatase 75 (38-126) U/L NT-Pro-B Natriuret Pep 34027 H (0-1800) pg/mL Serum Total Protein 6.2 L (6.3-8.2) g/dL Albumin 3.5 (3.5-5.0) g/dL Slides for Path Review YES Micro Results-Entire Visit: Microbiology 11/30/22 Unknown Urine Culture - Final Clean Catch Midstream Escherichia Coli - Radiology Exams Ordered Rad Exams-Entire Visit: Radiology Procedures Category Date Time Status CHEST 1 VIEW (PORTABLE) Routine Exams 12/03/22 09:14 Completed HEAD WITHOUT CONTRAST [CT] Urgent Exams 12/04/22 08:12 Completed - Procedures and Test Procedures and Tests throughout Hospitalization: Therapy Orders & Screens 11/30/22 17:06 Oxygen NASAL CANNULA 2 lpm Comment: 11/30/22 18:41 EKG STAT Comment: Diagnosis: ALTERED MENTAL STATUS 12/02/22 09:00 PT Eval & Treat (MD Order) ONCE Reason for Eval:: [facility] placement for rehab stay. Diagnosis: ALTERED MENTAL STATUS 12/03/22 07:00 Respiratory Therapy Assessment DAILY Comment: Diagnosis: ALTERED MENTAL STATUS Discharge Exam General Appearance: no apparent distress, alert Neurologic Exam: oriented x 3, cooperative Eye Exam: eyes nml inspection Ears, Nose, Throat Exam: moist mucous membranes Neck Exam: normal inspection Respiratory Exam: lungs clear, diminished breath sounds (fair air exchange), No crackles/rales, No rhonchi, No wheezing Cardiovascular Exam: regular rate/rhythm, normal heart sounds, No murmur Gastrointestinal/Abdomen Exam: soft, normal bowel sounds, No tenderness, No distention, No mass, No guarding, No rebound Extremity Exam: other (chronic venous stasis change), No pedal edema, No swelling Skin Exam: normal color, warm, dry, No rash Wound Assessment: Skin/Wound Assessment Wound/Incision Assessment Start: 11/30/22 18:23 Text: Status: Active Freq: Q6H Protocol: Document 12/04/22 08:00 CHARO (Rec: 12/04/22 09:56 [email or web address] [id number]) Wound/Incision Assessment Right Lower Other Wound Assessment Shift Assessment Wound Type Abrasion Wound Stage Non Pressure Wound Drainage Amount None Comment open to air Right Hip Wound Assessment Shift Assessment Wound Type BRUISE Wound Stage Non Pressure Wound Comment purple bruise Right Elbow Wound Assessment Shift Assessment Wound Type BRUISE Wound Stage Non Pressure Wound Comment maroon and purple bruise Left Buttock Wound Assessment Shift Assessment Wound Type Pressure Ulcer Wound Stage Stage II Drainage Amount None Comment shearing and redness, barrier cream applied PRN Right Buttock Wound Assessment Shift Assessment Wound Type Pressure Ulcer Wound Stage Stage II Drainage Amount None Comment also redness and shearing noted, barrier cream PRN Wound Photo Photo Taken Yes Comment: in chart Final Diagnosis/Problem List - Final Discharge Diagnosis/Problem (1) UTI (urinary tract infection) Current Visit: Yes Status: Acute Assessment & Plan: treated with IV rocephin, to which it is susceptible. Much improved mentation. Code(s): N39.0 - URINARY TRACT INFECTION, SITE NOT SPECIFIED (2) AMS (altered mental status) Current Visit: Yes Status: Resolved Code(s): R41.82 - ALTERED MENTAL STATUS, UNSPECIFIED (3) HTN (hypertension) Current Visit: Yes Status: Chronic Code(s): I10 - ESSENTIAL (PRIMARY) HYPERTENSION (4) Back pain Current Visit: Yes Status: Chronic Code(s): M54.9 - DORSALGIA, UNSPECIFIED (5) Elevated brain natriuretic peptide (BNP) level Current Visit: Yes Status: Acute Assessment & Plan: discharge on po lasix Code(s): R79.89 - OTHER SPECIFIED ABNORMAL FINDINGS OF BLOOD CHEMISTRY (6) Frequent falls Current Visit: Yes Status: Acute Code(s): R29.6 - REPEATED FALLS (7) Poor social situation Current Visit: Yes Status: Chronic Assessment & Plan: to LTCF Code(s): Z65.9 - PROBLEM RELATED TO UNSPECIFIED PSYCHOSOCIAL CIRCUMSTANCES (8) Pneumonia Current Visit: Yes Status: Suspected Assessment & Plan: home on augmentin Code(s): J18.9 - PNEUMONIA, UNSPECIFIED ORGANISM - Discharge Disposition: DC TO ANY "OTHER" [facility] Condition: Stable Prescriptions: New Lactobacillus Acidophilus [Acidophilus TABLET] 1 tab PO BID #8 tablet Amox Tr/Potass Clav. 875 mg [Augmentin 875-125 Tablet] 875 mg PO BID #8 tablet Prednisone 20 mg [Deltasone 20 mg] 20 mg PO DAILY #17 tablet Nicotine 21 mg [Nicoderm CQ 21 MG] 21 mg TOP Q24H10 #30 patch Continue Gabapentin [Neurontin] 800 mg PO TID Clopidogrel Bisulfate [PLAVIX Tablet] 75 mg PO DAILY Hctz/Triamterene 25/37.5 mg [Maxzide 25MG] 1 tab PO DAILY #30 tab Pravastatin Sodium 40 mg PO DAILY Cyanocobalamin (Vitamin B-12) [Vitamin B12] 1,000 mcg PO DAILY Ropinirole HCl 0.5 mg [Requip 0.5 MG] 0.5 mg PO HSPRN PRN PRN Reason: Pain Amlodipine Besylate [Norvasc] 10 mg PO DAILY Carvedilol 12.5 mg [Coreg 12.5 mg] 12.5 mg PO BID Aspirin EC 81 mg [Ecotrin 81 mg] 81 mg PO DAILY Furosemide 20 mg [Lasix 20 mg] 20 mg PO DAILY Clonidine HCl 0.1 mg [Clonidine 0.1 mg Tablet] 0.1 mg PO BID Hydrocodone/Acetaminophen [Hydrocodone-Acetamin 10-325 mg] 1 each PO TIDPRN Additional Instructions: [facility] ORDERS: ADMIT TO [facility] REGULAR DIET OXYGEN AT 3L/NC PT/OT EVAL AND TREAT SEE ATTACHED MED LIST Follow up with: JAIME CLAIRE [Primary Care Provider] -
== END 2022-12-04 16:00 | DRG 689 ==
LOC: ICU 16:25 → MED SURG 12-01 14:42 → OBSVTOIN 12-02 12:30
PROVIDERS: ADMIT Family Medicine; ATTEND Family Medicine
DX: N39.0 Urinary tract infection, site not specified (principal); J18.9 Pneumonia, unspecified organism; R41.82 Altered mental status, unspecified; I10 Essential (primary) hypertension; M54.9 Dorsalgia, unspecified; R79.89 Other specified abnormal findings of blood chemistry; R29.6 Repeated falls; R77.8 Other specified abnormalities of plasma proteins; L89.322 Pressure ulcer of left buttock, stage 2; L89.312 Pressure ulcer of right buttock, stage 2; S50.01XA Contusion of right elbow, initial encounter; S70.01XA Contusion of right hip, initial encounter; S80.11XA Contusion of right lower leg, initial encounter; S80.01XA Contusion of right knee, initial encounter; Z79.899 Other long term (current) drug therapy; Z65.9 Problem related to unspecified psychosocial circumstances; Z20.828 Contact with and (suspected) exposure to other viral communicable diseases
CPT/HCPCS: 0241U; 36415; 70450; 71045; 73502; 80053; 81001; 83880; 84134; 84484; 85025; 85027; 87077; 87086; 87186; 93005; 93268; 93306; 94640; 94760; 94762; J0360; J0456; J0696; J1650; J1940; J2270; J2920; J7609; 97110-GP; A9270-GY; G0378

== ENCOUNTER 2022-12-27 11:26 | Observation (INO) | payer MEDICARE ==
[2022-12-27 11:45] LABS: A-aADO2 113; ABG HEMOGLOBIN 12.7; ABG POTASSIUM 5.6 (3.5-5.1); ARTERIAL BLD GAS O2 SATURATION 95.9 % (95-100); ARTERIAL BLOOD GAS FIO2 36 %; ARTERIAL BLOOD GAS PCO2 58 mmHg (35-45); ARTERIAL BLOOD GAS PO2 71 mmHg (75-100); ARTERIAL BLOOD GAS pH 7.26 (7.35-7.45); HGB O2 SAT 86.8 g/dF (94-100); Methhemoglobin 0.9 % (1.4-1.5); paO2 pAO1 0.39
[2022-12-27 11:46] LABS: CARBOXYHEMOGLOBIN 8.6 % THgb (0.0-6.9)
[2022-12-27 11:47] LABS: ABG SITE RIGHT BRACHIAL
[2022-12-27] MEDS ORDERED: Ativan 2 MG/1 ML VIAL IV ONE (12:09)
[2022-12-27] MEDS ORDERED: Ativan 2 MG/1 ML VIAL ONE (12:11)
[2022-12-27 12:16] LABS: Absolute Neutrophil Ct (ANC) 8.05 x10^3/uL (1.4-6.9); BASOPHIL % 0.4 % (0.0-0.4); Basophil (Absolute #) 0.04 x10^3/uL (0-0.4); Eosinophil % 0.1 % (0.00-5.0); Eosinophil (Absolute #) 0.01 x10^3/uL (0-0.5); Hematocrit 43.4 % (35-47); Hemoglobin 12.4 g/dL (12.0-16.0); IMMATURE GRAN # 0.31 x10^3u/L (0.00-0.03); IMMATURE GRAN % 3.1 % (0.00-0.4); Lymphocyte (Absolute #) 1.03 x10^3/uL (1.0-4.6); Lymphocytes % 10.4 % (24.0-44.0); Mean Cell Volume 105.3 fL (78-100); Mean Corpuscular Hemoglobin 30.1 pg (26-32); Mean Corpuscular Hgb Concent. 28.6 g/dL (32-36); Mean Platelet Volume 11.2 fL (7.5-11.0); Monocyte (Absolute #) 0.46 x10^3/uL (0.0-1.3); Monocytes % 4.6 % (0.0-12.0); Neutrophil % 81.4 % (36.0-66.0); Platelet Count 264 x10^3/uL (150-450); Red Blood Count 4.12 x10^6/uL (4.1-5.4); Red Cell Distribution Width 15.5 % (11.5-14.0); White Blood Count 9.9 x10^3/uL (4.0-10.5)
[2022-12-27] MEDS ORDERED: Haldol 5 MG IV ONE ×2 (12:23→13:00)
[2022-12-27] MEDS ORDERED: Haldol 5 MG ONE ×2 (12:25→13:00)
[2022-12-27 12:30] LABS: ACETAMINOPHEN < 10 ug/ml (10-30); ALBUMIN 4.2 g/dL (3.5-5.0); ALKALINE PHOSPHATASE 91 U/L (38-126); ANION GAP 17.6 MEQ/L (5-15); BLOOD UREA NITROGEN 25 mg/dL (7-17); CHLORIDE 102 mmol/L (98-107); Calcium 9.1 mg/dL (8.4-10.2); Carbon Dioxide 28 mmol/L (22-30); Creatinine 1 1.49 mg/dL (0.52-1.04); EST GLOMERULAR FILTRATION RATE 36.3 ML/MIN; ETHYL ALCOHOL < 10 mg/dL (0-10); Glucose 147 mg/dL (74-106); Potassium 5.8 mmol/L (3.5-5.1); SALICYLATE < 1.0 mg/dL (2-20); SGOT/AST 22 U/L (14-36); SGPT/ALT 15 U/L (0-35); SODIUM 142 mmol/L (137-145)
[2022-12-27 12:35] LABS: INR 1.02 (0.8-3.0); PROTIME 10.8 SECONDS (9.4-12.5); PTT 33.3 SECONDS (25.1-36.5)
--- NOTE | 2022-12-27 12:35 | ERPHSYRPT ---
- History of Present Illness Source: EMS Exam Limitations: other (Pt not alert and oriented x0) Patient Subjective Stated Complaint: EMS reports family of this patient was not able to make contact with her today, so they went to check on her and found her to be unresponsive. EMS states upon their arrival pt was slumped over, sitting in front of a space heater. pt was unresponsive with agonal respirations, at 60% O2 saturation, pt pupils were pinpoint at that time. hydrocodone was found in the home, near the patient. pt was given narcan en route with a positive response and return of spontaneous breathing. Triage Nursing Assessment: pt is unresponsive upon arrival with spontaneous respirations, pt pupils constricted, equal, afebrile, radial pulses strong and equal, cap refill < 3 seconds, pt skin is pale warm dry. pt with 2+ pitting edema to her BLE, skin to BLE is red, dry, flaky, pt with purple bruising to the right lateral hip and upper thigh, bruisning noted to right knee. Physician History: 77 yo wf w HTN/COPD/Peripheral neuropathy/osteoporosis who was discharged from [facility] on 12/02/22 after admit for UTI/altered mental status. Sister called EMS because she could not be reached. EMS arrived and found pt slumped in chair, un responisve. 1mg IV Narcan given x2 w some improvement in sensorium. Pt arrived minimally alert, oriented x0, but w a great airway. Sats on 4L NC adequate and BP adequate. CT head ordered to r/o bleed/CT of C-spine ordered to r/o Fx/CT chest ordered to r/o pneumonia etc/CT ab-pelvis to r/o R hip fx etc Timing/Duration: today, other Severity: moderate Character of Deficits: general (difuse) Baseline/Normal Cognition: alert oriented x 3 Current Cognition: poor alertness Allergies/Adverse Reactions: No Known Drug Allergies Allergy (Unverified 11/30/22 20:07) Home Medications: Clopidogrel Bisulfate [PLAVIX Tablet] 75 mg PO DAILY 07/15/15 [History] Gabapentin [Neurontin] 800 mg PO TID 07/15/15 [History] Amlodipine Besylate [Norvasc] 10 mg PO DAILY 11/30/22 [History] Aspirin EC 81 mg [Ecotrin 81 mg] 81 mg PO DAILY 11/30/22 [History] Carvedilol 12.5 mg [Coreg 12.5 mg] 12.5 mg PO BID 11/30/22 [History] Clonidine HCl 0.1 mg [Clonidine 0.1 mg Tablet] 0.1 mg PO BID 11/30/22 [History] Cyanocobalamin (Vitamin B-12) [Vitamin B12] 1,000 mcg PO DAILY 11/30/22 [History] Furosemide 20 mg [Lasix 20 mg] 20 mg PO DAILY 11/30/22 [History] Hydrocodone/Acetaminophen [Hydrocodone-Acetamin 10-325 mg] 1 each PO TIDPRN 11/30/22 [History] Pravastatin Sodium 40 mg PO HS 11/30/22 [History] Ropinirole HCl 0.5 mg [Requip 0.5 MG] 0.5 mg PO HSPRN PRN 11/30/22 [History] Hx Tetanus, Diphtheria Vaccination/Date Given: No Hx Influenza Vaccination/Date Given: No Hx Pneumococcal Vaccination/Date Given: No Immunizations Up to Date: No Travel Risk - International Travel Have you traveled outside of the country in past 3 weeks: No - Coronavirus Screening Close contact with a COVID-19 positive Pt in past 14-21 Days: No - Vaccine Status Have you recieved a Covid-19 vaccination: No Sample Preparation Supervisor: Unknown - Vaccination Dates Dates if Unknown: 2020 - Review of Systems All Other Systems: Unable due to condition - Past Medical History Pertinent Past Medical History: (unable to assess) Neurological History: Peripheral Neuropathy Cardiac History: High Cholesterol, Hypertension, Peripheral Vascular Disease - Past Surgical History Past Surgical History: (unable to assess) Female Surgical History: Lumpectomy - Social History Smoking Status: Heavy tobacco smoker How long have you smoked: 55 Exposure to second hand smoke: Yes Drug Use: other Patient Lives Alone: Yes - Nursing Vital Signs Nursing Vital Signs: Initial Vital Signs Pulse Rate 116 H 12/27/22 11:27 Respiratory Rate 26 H 12/27/22 11:27 Blood Pressure 156/79 12/27/22 11:27 Pain Scale Pain Intensity 0 Hypertensive/Tachy - [place] Coma Scale Best Eye Response ([place]): (2) open to pain Best Verbal Response ([place]): (2) incomprehsible sounds Best Motor Response ([place]): (5) localizes to pain [place] Total: 9 - Physical Exam General Appearance: moderate distress, No alert Eye Exam: bilateral eye: PERRL Ears, Nose, Throat Exam: normal ENT inspection, TMs normal Neck Exam: normal inspection Respiratory: normal breath sounds Cardiovascular: tachycardia, No murmur Gastrointestinal: soft, normal bowel sounds Extremity Exam: other (Large ecchymotic area R hip/1+ pre-tibial edema w chronic venous stasis changes) Peripheral Pulses: carotid (R): 2+, carotid (L): 2+ Mental Status: agitated, depressed affect, disoriented to person, disoriented to place, disoriented to time, lethargy, No alert, No oriented x 3, No cooperative SpO2: 96 - Course Nursing assessment & vital signs reviewed: Yes EKG Interpreted by Me: RATE (NSR/Rate 88/prolonged QTc/Twave inversion V2-V3) - CT Exams Head CT Interpretation: Tele-radiologist Report (Nothing acute/sinusitis) Cervical Spine CT Interpretation: Tele-radiologist Report (No fracture or subluxation) Chest CT Interpretation: Tele-radiologist Report (Atelectasis at bases/Multiple gallstones w dilitation of CBD to 11mm but no evidence of cholecystitis/Remote manubrium fx/Old L2 compression fx) Abdomen/Pelvis CT Interpretation: Tele-radiologist Report (Tele-rad called-Shah in vagina/Old L2-L4 endplate compression fx's/R hip hematoma wo fx) Ordered Tests: Medication Summary Discontinued Medications Generic Name Dose Route Start Last Admin Trade Name Freq PRN Reason Stop Dose Admin Acetaminophen 650 mg 12/27/22 22:18 12/27/22 22:29 Acetaminophen 650 Mg Supp.Rect ND 01/26/23 22:17 650 mg Q6H PRN PRN Administration PAIN AND/OR FEVER Hydrocodone Bitart/Acetaminophen 1 tablet 12/28/22 10:00 12/29/22 09:04 Hydrocodone/Acetamin 10-325 Mg Tablet PO 01/02/23 09:59 1 tablet TIDPRN PRN Administration Albuterol Sulfate 2.5 mg 12/27/22 15:51 12/27/22 16:04 Albuterol Sulfate 2.5 Mg/3 Ml Neb IH 12/27/22 15:52 2.5 mg STAT ONE Administration Albuterol Sulfate Confirm 12/27/22 16:04 Albuterol Sulfate 2.5 Mg/3 Ml Neb Administered 12/27/22 16:05 Dose 2.5 mg IH .STK-MED ONE Amlodipine Besylate 10 mg 12/28/22 12:00 12/31/22 08:47 Amlodipine Besylate 5 Mg Tablet PO 01/27/23 11:59 10 mg DAILY [place] Administration Amoxicillin/Clavulanate Potassium 875 mg 12/28/22 12:00 Amox Tr/Potassium Clavulanate 875 Mg Tablet PO 01/27/23 11:59 BID [place] Aspirin 81 mg 12/28/22 12:00 12/31/22 08:48 Aspirin 81 Mg Tablet.Ec PO 01/27/23 11:59 81 mg DAILY [place] Administration Carvedilol 12.5 mg 12/28/22 12:00 12/31/22 08:48 Carvedilol 12.5 Mg Tablet PO 01/27/23 11:59 12.5 mg BID [place] Administration Clonidine 0.1 mg 12/28/22 12:00 12/31/22 08:48 Clonidine Hcl 0.1 Mg Tablet PO 01/27/23 11:59 0.1 mg BID [place] Administration Clopidogrel Bisulfate 75 mg 12/28/22 12:00 12/31/22 08:48 Clopidogrel Bisulfate 75 Mg Tablet PO 01/27/23 11:59 75 mg DAILY [place] Administration Methylprednisolone Sodium 0 mg 12/28/22 10:00 12/28/22 22:39 Succinate 40 mg/ Sterile Water IV 01/27/23 09:59 40 mg 1 ml Q12HT [place] Administration Methylprednisolone Sodium 0 mg 12/29/22 08:30 12/31/22 05:20 Succinate 60 mg/ Sterile Water IV 01/28/23 08:29 60 mg 2 ml Q8HT [place] Administration Cyanocobalamin 1,000 mcg 12/28/22 12:00 12/31/22 08:48 Cyanocobalamin 500 Mcg Tablet PO 01/27/23 11:59 1,000 mcg DAILY [place] Administration Dextrose 50 ml 12/27/22 15:50 12/27/22 16:04 Dextrose 50%-Water 50 Ml Abboject IV 12/27/22 15:51 50 ml STAT ONE Administration Dextrose Confirm 12/27/22 16:02 Dextrose 50%-Water 50 Ml Abboject Administered 12/27/22 16:03 Dose 50 ml IV .STK-MED ONE Dextrose 25 ml 12/27/22 20:05 12/27/22 20:08 Dextrose 50%-Water 50 Ml Abboject IV 01/26/23 20:04 25 ml PRN PRN Administration HYPOGLYCEMIA Enoxaparin Sodium 80 mg 12/28/22 10:00 12/27/22 20:38 Enoxaparin Sodium 80 Mg/0.8 Ml Syringe SQ 01/27/23 09:59 80 mg DAILY [place] Administration Enoxaparin Sodium Confirm 12/27/22 20:33 Enoxaparin Sodium 80 Mg/0.8 Ml Syringe Administered 12/27/22 20:34 Dose 80 mg SQ .STK-MED ONE Enoxaparin Sodium 80 mg 12/28/22 22:00 Enoxaparin Sodium 80 Mg/0.8 Ml Syringe SQ 01/27/23 21:59 Q24H22 [place] Enoxaparin Sodium 40 mg 12/28/22 22:00 12/30/22 21:16 Enoxaparin Sodium 40 Mg/0.4 Ml Syringe SQ 01/27/23 21:59 40 mg Q24H [place] Administration Furosemide 20 mg 12/28/22 12:00 12/31/22 08:48 Furosemide 20 Mg Tablet PO 01/27/23 11:59 20 mg DAILY [place] Administration Gabapentin 800 mg 12/28/22 10:45 12/31/22 08:48 Gabapentin 400 Mg Capsule PO 01/27/23 10:44 800 mg TID [place] Administration Glucagon 1 mg 12/27/22 20:05 Glucagon 1 Mg/Vial Vial IM 01/26/23 20:04 PRN PRN HYPOGLYCEMIA Glucose 15 gm 12/27/22 20:05 Dextrose 15 Gm Gel PO 01/26/23 20:04 PRN PRN HYPOGLYCEMIA Haloperidol Lactate 5 mg 12/27/22 12:23 12/27/22 12:26 Haloperidol Lactate 5 Mg/Ml Vial IV 12/27/22 12:24 5 mg STAT ONE Administration Haloperidol Lactate Confirm 12/27/22 12:25 Haloperidol Lactate 5 Mg/Ml Vial Administered 12/27/22 12:26 Dose 5 mg .ROUTE .STK-MED ONE Haloperidol Lactate 5 mg 12/27/22 13:00 12/27/22 13:01 Haloperidol Lactate 5 Mg/Ml Vial IV 12/27/22 13:01 5 mg STAT ONE Administration Haloperidol Lactate Confirm 12/27/22 13:00 Haloperidol Lactate 5 Mg/Ml Vial Administered 12/27/22 13:01 Dose 5 mg .ROUTE .STK-MED ONE Hydralazine HCl 10 mg 12/30/22 08:06 Hydralazine Hcl 20 Mg/Ml Vial IV 01/29/23 08:05 [id number] PRN HYPERTENSION Sodium Chloride 1,000 mls @ 999 mls/hr 12/27/22 12:44 12/27/22 16:04 Sodium Chloride 0.9% 1000 Ml IV 12/27/22 13:44 999 mls/hr .Q1H1M STA Administration Sodium Chloride Confirm 12/27/22 16:02 Sodium Chloride 0.9% 1000 Ml Administered 12/27/22 16:03 Dose 1,000 mls @ ud .ROUTE .STK-MED ONE Ceftriaxone Sodium/Dextrose 1 g in 50 mls @ 100 mls/hr 12/27/22 17:41 12/27/22 18:14 Rocephin 1 Gm-D5w 50 Ml Bag IV 12/27/22 18:10 100 mls/hr STAT STA 100 mls/hr Administration Sodium Chloride 1,000 mls @ 100 mls/hr 12/27/22 17:45 12/27/22 18:13 Sodium Chloride 0.9% 1000 Ml IV 01/26/23 17:44 100 mls/hr .Q10H [place] Administration Ceftriaxone Sodium/Dextrose 1 g in 50 mls @ 100 mls/hr 12/28/22 14:00 12/30/22 08:24 Rocephin 1 Gm-D5w 50 Ml Bag IV 12/31/22 13:59 100 mls/hr Q24H10 [place] Administration Ceftriaxone Sodium/Dextrose Confirm 12/27/22 18:10 Rocephin 1 Gm-D5w 50 Ml Bag Administered 12/27/22 18:11 Dose 1 g in 50 mls @ ud IV .STK-MED ONE Dextrose/Sodium Chloride 1,000 mls @ 100 mls/hr 12/27/22 20:30 12/30/22 08:30 Dextrose 5%-Ns Iv Solution 1000 Ml IV 01/26/23 20:29 Not Given .Q10H [place] Sodium Chloride Confirm 12/27/22 18:10 Sodium Chloride 0.9% 1000 Ml Administered 12/27/22 18:11 Dose 1,000 mls @ ud .ROUTE .STK-MED ONE Levofloxacin/Dextrose 500 mg in 100 mls @ 100 mls/hr 12/30/22 12:00 12/30/22 11:09 Levofloxacin 500mg/100ml D5w IV 12/30/22 12:59 100 mls/hr 1200 [place] Administration Levofloxacin/Dextrose 250 mg in 50 mls @ 50 mls/hr 12/31/22 10:00 12/31/22 09:56 Levaquin 250mg/50ml D5w IV 01/30/23 09:59 50 mls/hr DAILY [place] Administration Linezolid 300 mls @ 150 mls/hr 12/31/22 10:00 12/31/22 09:56 Zyvox 600 Mg Iv Premix IV 01/30/23 09:59 150 mls/hr Q12HT [place] Administration Insulin Human Regular 10 unit 12/27/22 15:50 12/27/22 16:04 Insulin Regular, Human 1 Unit IV 12/27/22 15:51 10 unit STAT ONE Administration Insulin Human Regular Confirm 12/27/22 16:02 Insulin Regular, Human 1 Unit Administered 12/27/22 16:03 Dose 10 unit .ROUTE .STK-MED ONE Lactobacillus Acidophilus 1 tab 12/28/22 12:00 12/31/22 08:48 Lactobacillus Acidophilus 1 Tab Tablet PO 01/27/23 11:59 1 tab BID [place] Administration Lorazepam 0.5 mg 12/27/22 12:09 12/27/22 12:13 Lorazepam 2 Mg/1 Ml 2 Mg Vial IV 12/27/22 12:10 0.5 mg STAT ONE Administration Lorazepam Confirm 12/27/22 12:11 Lorazepam 2 Mg/1 Ml 2 Mg Vial Administered 12/27/22 12:12 Dose 2 mg .ROUTE .STK-MED ONE Methylprednisolone Sodium Succinate Confirm 12/29/22 13:41 Methylprednis Sod Succ 125 Mg/2 Ml Vial Administered 12/29/22 13:42 Dose 125 mg .ROUTE .STK-MED ONE Methylprednisolone Sodium Succinate Confirm 12/30/22 13:31 Methylprednis Sod Succ 125 Mg/2 Ml Vial Administered 12/30/22 13:32 Dose 125 mg .ROUTE .STK-MED ONE Nicotine 21 mg 12/28/22 12:00 12/31/22 08:48 Nicotine 21 Mg/Patch Patch TOP 01/27/23 11:59 21 mg Q24H [place] Administration Ondansetron HCl 4 mg 12/27/22 17:42 Ondansetron Hcl 4 Mg/2 Ml Vial IV 01/26/23 17:41 Q6H PRN PRN NAUSEA/VOMITING Pantoprazole Sodium 40 mg 12/28/22 10:00 12/30/22 08:26 Pantoprazole 40 Mg Vial IV 01/27/23 09:59 40 mg Q24H10 [place] Administration Pantoprazole Sodium 40 mg 12/31/22 10:00 12/31/22 08:47 Protonix (Pantoprazole) 40 Mg Tablet PO 01/30/23 09:59 40 mg DAILY [place] Administration Prednisone 60 mg 12/31/22 10:00 12/31/22 08:48 Prednisone 20 Mg Tablet PO 01/30/23 09:59 60 mg DAILY [place] Administration Ropinirole HCl 0.5 mg 12/28/22 09:56 12/30/22 21:19 Ropinirole Hcl 0.5 Mg Tablet PO 01/27/23 09:55 0.5 mg HSPRN PRN Administration PAIN Simvastatin 40 mg 12/28/22 22:00 12/30/22 21:16 Simvastatin 20 Mg Tablet PO 01/27/23 21:59 40 mg HS [place] Administration Sodium Bicarbonate 50 meq 12/27/22 15:49 12/27/22 16:05 Sodium Bicarbonate 1 Meq/Ml 50ml Syringe IV 12/27/22 15:50 50 meq STAT ONE Administration Sodium Bicarbonate Confirm 12/27/22 16:02 Sodium Bicarbonate 1 Meq/Ml 50ml Syringe Administered 12/27/22 16:03 Dose 50 meq IV .STK-MED ONE Triamterene/Hydrochlorothiazide 1 tab 12/28/22 12:00 12/31/22 08:48 Triamterene/Hydrochlorothiazide 37.5/25mg 1 Tablet PO 01/27/23 11:59 1 tab DAILY [place] Administration Lab/Rad Data: Laboratory Result Diagrams 12/27/22 12:02 12/27/22 14:32 Laboratory Results 12/27/22 12/27/22 12/27/22 Range/Units 18:10 16:15 14:58 WBC (4.0-10.5) x10^3/uL RBC (4.1-5.4) x10^6/uL Hgb (12.0-16.0) g/dL Hct (35-47) % MCV (78-100) fL MCH (26-32) pg MCHC (32-36) g/dL RDW (11.5-14.0) % Plt Count (150-450) x10^3/uL MPV (7.5-11.0) fL Gran % (36.0-66.0) % Immature Gran % (Auto) (0.00-0.4) % Nucleat RBC Rel Count (0.00-0.1) % Eos # (Auto) (0-0.5) x10^3/uL Immature Gran # (Auto) (0.00-0.03) x10^3u/L Absolute Lymphs (auto) (1.0-4.6) x10^3/uL Absolute Monos (auto) (0.0-1.3) x10^3/uL Absolute Nucleated RBC (0.00-0.01) x10^3u/L Lymphocytes % (24.0-44.0) % Monocytes % (0.0-12.0) % Eosinophils % (0.00-5.0) % Basophils % (0.0-0.4) % Absolute Granulocytes (1.4-6.9) x10^3/uL Basophils # (0-0.4) x10^3/uL PT (9.4-12.5) SECONDS INR (0.8-3.0) APTT (25.1-36.5) SECONDS Puncture Site RIGHT BRACHIAL pCO2 53 H (35-45) mmHg pO2 64 L (75-100) mmHg Base Excess 3.5 H (-2.0-2.0) O2 Saturation 90.6 L (94-100) g/dF ABG pH 7.36 (7.35-7.45) ABG HCO3 29.9 H* (22-28) ABG O2 Sat (Measured) 95.1 (95-100) % Azael Test NOT APPLICABLE A-a Gradient 98 a/A Ratio 0.40 Hemoglobin 11.6 Carboxyhemoglobin 3.8 (0.0-6.9) % THgb Methemoglobin 0.8 L (1.4-1.5) % Potassium 4.5 (3.5-5.1) Temperature 37.0 C POC O2 Flow Rate 32 % Sodium (137-145) mmol/L Chloride (98-107) mmol/L Carbon Dioxide (22-30) mmol/L Anion Gap (5-15) MEQ/L BUN (7-17) mg/dL Creatinine (0.52-1.04) mg/dL Estimated GFR ML/MIN Glucose (74-106) mg/dL Lactic Acid (0.4-2.0) Calcium (8.4-10.2) mg/dL Total Bilirubin (0.2-1.3) mg/dL AST (14-36) U/L ALT (0-35) U/L Alkaline Phosphatase (38-126) U/L Troponin I 0.056 H* (0.000-0.034) ng/mL Serum Total Protein (6.3-8.2) g/dL Albumin (3.5-5.0) g/dL Urine Color (Yellow) Urine Appearance (Clear) Urine pH (4.6-8.0) Ur Specific [place] (1.005-1.030) Urine Protein (Negative) Urine Glucose (UA) (Negative) mg/dL Urine Ketones (Negative) Urine Blood (Negative) Urine Nitrite (Negative) Urine Bilirubin (Negative) Urine Urobilinogen (0.2) mg/dL Ur Leukocyte Esterase (Negative) U Hyaline Cast (Auto) (0-2) /LPF Urine Microscopic RBC (0-5) /HPF Urine Microscopic WBC (0-5) /HPF Ur Epithelial Cells (None Seen) /HPF Urine Bacteria (None Seen) /HPF Urine Culture Reflexed (NO) Salicylates (2-20) mg/dL Urine Opiates Level POSITIVE (NEGATIVE) Ur Methadone NEGATIVE (NEGATIVE) Acetaminophen (10-30) ug/ml Urine Barbiturates NEGATIVE (NEGATIVE) Ur Phencyclidine (PCP) NEGATIVE (NEGATIVE) Urine Amphetamine NEGATIVE (NEGATIVE) U Benzodiazepine Level NEGATIVE (NEGATIVE) Urine Cocaine NEGATIVE (NEGATIVE) Urine Marijuana (THC) NEGATIVE (NEGATIVE) Ethyl Alcohol (0-10) mg/dL Influenza Type A Ag (NEGATIVE) Influenza Type B Ag (NEGATIVE) RSV (PCR) (Negative) SARS-CoV-2 (PCR) (NEGATIVE) Slides for Path Review 12/27/22 12/27/22 12/27/22 Range/Units 14:58 14:32 14:32 WBC (4.0-10.5) x10^3/uL RBC (4.1-5.4) x10^6/uL Hgb (12.0-16.0) g/dL Hct (35-47) % MCV (78-100) fL MCH (26-32) pg MCHC (32-36) g/dL RDW (11.5-14.0) % Plt Count (150-450) x10^3/uL MPV (7.5-11.0) fL Gran % (36.0-66.0) % Immature Gran % (Auto) (0.00-0.4) % Nucleat RBC Rel Count (0.00-0.1) % Eos # (Auto) (0-0.5) x10^3/uL Immature Gran # (Auto) (0.00-0.03) x10^3u/L Absolute Lymphs (auto) (1.0-4.6) x10^3/uL Absolute Monos (auto) (0.0-1.3) x10^3/uL Absolute Nucleated RBC (0.00-0.01) x10^3u/L Lymphocytes % (24.0-44.0) % Monocytes % (0.0-12.0) % Eosinophils % (0.00-5.0) % Basophils % (0.0-0.4) % Absolute Granulocytes (1.4-6.9) x10^3/uL Basophils # (0-0.4) x10^3/uL PT (9.4-12.5) SECONDS INR (0.8-3.0) APTT (25.1-36.5) SECONDS Puncture Site pCO2 (35-45) mmHg pO2 (75-100) mmHg Base Excess (-2.0-2.0) O2 Saturation (94-100) g/dF ABG pH (7.35-7.45) ABG HCO3 (22-28) ABG O2 Sat (Measured) (95-100) % Azael Test A-a Gradient a/A Ratio Hemoglobin Carboxyhemoglobin (0.0-6.9) % THgb Methemoglobin (1.4-1.5) % Potassium 5.8 H (3.5-5.1) Temperature C POC O2 Flow Rate % Sodium 140 (137-145) mmol/L Chloride 102 (98-107) mmol/L Carbon Dioxide 30 (22-30) mmol/L Anion Gap 14.3 (5-15) MEQ/L BUN 26 H (7-17) mg/dL Creatinine 1.40 H (0.52-1.04) mg/dL Estimated GFR 39.0 ML/MIN Glucose 104 (74-106) mg/dL Lactic Acid (0.4-2.0) Calcium 8.4 (8.4-10.2) mg/dL Total Bilirubin (0.2-1.3) mg/dL AST (14-36) U/L ALT (0-35) U/L Alkaline Phosphatase (38-126) U/L Troponin I 0.050 H* (0.000-0.034) ng/mL Serum Total Protein (6.3-8.2) g/dL Albumin (3.5-5.0) g/dL Urine Color Yellow (Yellow) Urine Appearance Clear (Clear) Urine pH 5.5 (4.6-8.0) Ur Specific [place] 1.015 (1.005-1.030) Urine Protein 100 A (Negative) Urine Glucose (UA) Negative (Negative) mg/dL Urine Ketones Negative (Negative) Urine Blood Negative (Negative) Urine Nitrite Negative (Negative) Urine Bilirubin Negative (Negative) Urine Urobilinogen 1.0 A (0.2) mg/dL Ur Leukocyte Esterase Negative (Negative) U Hyaline Cast (Auto) 11-25 A (0-2) /LPF Urine Microscopic RBC 0-2 (0-5) /HPF Urine Microscopic WBC 0-2 (0-5) /HPF Ur Epithelial Cells None Seen (None Seen) /HPF Urine Bacteria Many A (None Seen) /HPF Urine Culture Reflexed YES (NO) Salicylates (2-20) mg/dL Urine Opiates Level (NEGATIVE) Ur Methadone (NEGATIVE) Acetaminophen (10-30) ug/ml Urine Barbiturates (NEGATIVE) Ur Phencyclidine (PCP) (NEGATIVE) Urine Amphetamine (NEGATIVE) U Benzodiazepine Level (NEGATIVE) Urine Cocaine (NEGATIVE) Urine Marijuana (THC) (NEGATIVE) Ethyl Alcohol (0-10) mg/dL Influenza Type A Ag (NEGATIVE) Influenza Type B Ag (NEGATIVE) RSV (PCR) (Negative) SARS-CoV-2 (PCR) (NEGATIVE) Slides for Path Review 12/27/22 12/27/22 12/27/22 Range/Units 13:49 13:38 12:05 WBC (4.0-10.5) x10^3/uL RBC (4.1-5.4) x10^6/uL Hgb (12.0-16.0) g/dL Hct (35-47) % MCV (78-100) fL MCH (26-32) pg MCHC (32-36) g/dL RDW (11.5-14.0) % Plt Count (150-450) x10^3/uL MPV (7.5-11.0) fL Gran % (36.0-66.0) % Immature Gran % (Auto) (0.00-0.4) % Nucleat RBC Rel Count (0.00-0.1) % Eos # (Auto) (0-0.5) x10^3/uL Immature Gran # (Auto) (0.00-0.03) x10^3u/L Absolute Lymphs (auto) (1.0-4.6) x10^3/uL Absolute Monos (auto) (0.0-1.3) x10^3/uL Absolute Nucleated RBC (0.00-0.01) x10^3u/L Lymphocytes % (24.0-44.0) % Monocytes % (0.0-12.0) % Eosinophils % (0.00-5.0) % Basophils % (0.0-0.4) % Absolute Granulocytes (1.4-6.9) x10^3/uL Basophils # (0-0.4) x10^3/uL PT (9.4-12.5) SECONDS INR (0.8-3.0) APTT (25.1-36.5) SECONDS Puncture Site RIGHT BRACHIAL pCO2 52 H (35-45) mmHg pO2 285 H* (75-100) mmHg Base Excess 1.5 (-2.0-2.0) O2 Saturation 94.4 (94-100) g/dF ABG pH 7.34 L (7.35-7.45) ABG HCO3 28.1 H (22-28) ABG O2 Sat (Measured) 99.9 (95-100) % Azael Test NOT APPLICABLE A-a Gradient 363 a/A Ratio 0.44 Hemoglobin 11.6 Carboxyhemoglobin 4.5 (0.0-6.9) % THgb Methemoglobin 1.0 L (1.4-1.5) % Potassium 5.5 H (3.5-5.1) Temperature 37.0 C POC O2 Flow Rate 100 % Sodium (137-145) mmol/L Chloride (98-107) mmol/L Carbon Dioxide (22-30) mmol/L Anion Gap (5-15) MEQ/L BUN (7-17) mg/dL Creatinine (0.52-1.04) mg/dL Estimated GFR ML/MIN Glucose (74-106) mg/dL Lactic Acid 0.7 (0.4-2.0) Calcium (8.4-10.2) mg/dL Total Bilirubin (0.2-1.3) mg/dL AST (14-36) U/L ALT (0-35) U/L Alkaline Phosphatase (38-126) U/L Troponin I (0.000-0.034) ng/mL Serum Total Protein (6.3-8.2) g/dL Albumin (3.5-5.0) g/dL Urine Color (Yellow) Urine Appearance (Clear) Urine pH (4.6-8.0) Ur Specific [place] (1.005-1.030) Urine Protein (Negative) Urine Glucose (UA) (Negative) mg/dL Urine Ketones (Negative) Urine Blood (Negative) Urine Nitrite (Negative) Urine Bilirubin (Negative) Urine Urobilinogen (0.2) mg/dL Ur Leukocyte Esterase (Negative) U Hyaline Cast (Auto) (0-2) /LPF Urine Microscopic RBC (0-5) /HPF Urine Microscopic WBC (0-5) /HPF Ur Epithelial Cells (None Seen) /HPF Urine Bacteria (None Seen) /HPF Urine Culture Reflexed (NO) Salicylates (2-20) mg/dL Urine Opiates Level (NEGATIVE) Ur Methadone (NEGATIVE) Acetaminophen (10-30) ug/ml Urine Barbiturates (NEGATIVE) Ur Phencyclidine (PCP) (NEGATIVE) Urine Amphetamine (NEGATIVE) U Benzodiazepine Level (NEGATIVE) Urine Cocaine (NEGATIVE) Urine Marijuana (THC) (NEGATIVE) Ethyl Alcohol (0-10) mg/dL Influenza Type A Ag NEGATIVE (NEGATIVE) Influenza Type B Ag NEGATIVE (NEGATIVE) RSV (PCR) NEGATIVE (Negative) SARS-CoV-2 (PCR) NEGATIVE (NEGATIVE) Slides for Path Review 12/27/22 12/27/22 12/27/22 Range/Units 12:02 12:02 12:02 WBC (4.0-10.5) x10^3/uL RBC (4.1-5.4) x10^6/uL Hgb (12.0-16.0) g/dL Hct (35-47) % MCV (78-100) fL MCH (26-32) pg MCHC (32-36) g/dL RDW (11.5-14.0) % Plt Count (150-450) x10^3/uL MPV (7.5-11.0) fL Gran % (36.0-66.0) % Immature Gran % (Auto) (0.00-0.4) % Nucleat RBC Rel Count (0.00-0.1) % Eos # (Auto) (0-0.5) x10^3/uL Immature Gran # (Auto) (0.00-0.03) x10^3u/L Absolute Lymphs (auto) (1.0-4.6) x10^3/uL Absolute Monos (auto) (0.0-1.3) x10^3/uL Absolute Nucleated RBC (0.00-0.01) x10^3u/L Lymphocytes % (24.0-44.0) % Monocytes % (0.0-12.0) % Eosinophils % (0.00-5.0) % Basophils % (0.0-0.4) % Absolute Granulocytes (1.4-6.9) x10^3/uL Basophils # (0-0.4) x10^3/uL PT 10.8 (9.4-12.5) SECONDS INR 1.02 (0.8-3.0) APTT 33.3 (25.1-36.5) SECONDS Puncture Site pCO2 (35-45) mmHg pO2 (75-100) mmHg Base Excess (-2.0-2.0) O2 Saturation (94-100) g/dF ABG pH (7.35-7.45) ABG HCO3 (22-28) ABG O2 Sat (Measured) (95-100) % Azael Test A-a Gradient a/A Ratio Hemoglobin Carboxyhemoglobin (0.0-6.9) % THgb Methemoglobin (1.4-1.5) % Potassium (3.5-5.1) Temperature C POC O2 Flow Rate % Sodium (137-145) mmol/L Chloride (98-107) mmol/L Carbon Dioxide (22-30) mmol/L Anion Gap (5-15) MEQ/L BUN (7-17) mg/dL Creatinine (0.52-1.04) mg/dL Estimated GFR ML/MIN Glucose (74-106) mg/dL Lactic Acid (0.4-2.0) Calcium (8.4-10.2) mg/dL Total Bilirubin (0.2-1.3) mg/dL AST (14-36) U/L ALT (0-35) U/L Alkaline Phosphatase (38-126) U/L Troponin I 0.047 H* (0.000-0.034) ng/mL Serum Total Protein (6.3-8.2) g/dL Albumin (3.5-5.0) g/dL Urine Color (Yellow) Urine Appearance (Clear) Urine pH (4.6-8.0) Ur Specific [place] (1.005-1.030) Urine Protein (Negative) Urine Glucose (UA) (Negative) mg/dL Urine Ketones (Negative) Urine Blood (Negative) Urine Nitrite (Negative) Urine Bilirubin (Negative) Urine Urobilinogen (0.2) mg/dL Ur Leukocyte Esterase (Negative) U Hyaline Cast (Auto) (0-2) /LPF Urine Microscopic RBC (0-5) /HPF Urine Microscopic WBC (0-5) /HPF Ur Epithelial Cells (None Seen) /HPF Urine Bacteria (None Seen) /HPF Urine Culture Reflexed (NO) Salicylates < 1.0 L (2-20) mg/dL Urine Opiates Level (NEGATIVE) Ur Methadone (NEGATIVE) Acetaminophen < 10 L (10-30) ug/ml Urine Barbiturates (NEGATIVE) Ur Phencyclidine (PCP) (NEGATIVE) Urine Amphetamine (NEGATIVE) U Benzodiazepine Level (NEGATIVE) Urine Cocaine (NEGATIVE) Urine Marijuana (THC) (NEGATIVE) Ethyl Alcohol (0-10) mg/dL Influenza Type A Ag (NEGATIVE) Influenza Type B Ag (NEGATIVE) RSV (PCR) (Negative) SARS-CoV-2 (PCR) (NEGATIVE) Slides for Path Review 12/27/22 12/27/22 12/27/22 Range/Units 12:02 12:02 11:33 WBC 9.9 (4.0-10.5) x10^3/uL RBC 4.12 (4.1-5.4) x10^6/uL Hgb 12.4 (12.0-16.0) g/dL Hct 43.4 (35-47) % MCV 105.3 H (78-100) fL MCH 30.1 (26-32) pg MCHC 28.6 L (32-36) g/dL RDW 15.5 H (11.5-14.0) % Plt Count 264 (150-450) x10^3/uL MPV 11.2 H (7.5-11.0) fL Gran % 81.4 H (36.0-66.0) % Immature Gran % (Auto) 3.1 H (0.00-0.4) % Nucleat RBC Rel Count 0.0 (0.00-0.1) % Eos # (Auto) 0.01 (0-0.5) x10^3/uL Immature Gran # (Auto) 0.31 H (0.00-0.03) x10^3u/L Absolute Lymphs (auto) 1.03 (1.0-4.6) x10^3/uL Absolute Monos (auto) 0.46 (0.0-1.3) x10^3/uL Absolute Nucleated RBC 0.00 (0.00-0.01) x10^3u/L Lymphocytes % 10.4 L (24.0-44.0) % Monocytes % 4.6 (0.0-12.0) % Eosinophils % 0.1 (0.00-5.0) % Basophils % 0.4 (0.0-0.4) % Absolute Granulocytes 8.05 H (1.4-6.9) x10^3/uL Basophils # 0.04 (0-0.4) x10^3/uL PT (9.4-12.5) SECONDS INR (0.8-3.0) APTT (25.1-36.5) SECONDS Puncture Site RIGHT BRACHIAL pCO2 58 H (35-45) mmHg pO2 71 L (75-100) mmHg Base Excess -2.0 (-2.0-2.0) O2 Saturation 86.8 L (94-100) g/dF ABG pH 7.26 L (7.35-7.45) ABG HCO3 26.0 (22-28) ABG O2 Sat (Measured) 95.9 (95-100) % Azael Test NOT APPLICABLE A-a Gradient 113 a/A Ratio 0.39 Hemoglobin 12.7 Carboxyhemoglobin 8.6 H* (0.0-6.9) % THgb Methemoglobin 0.9 L (1.4-1.5) % Potassium 5.8 H 5.6 H (3.5-5.1) Temperature 37.0 C POC O2 Flow Rate 36 % Sodium 142 (137-145) mmol/L Chloride 102 (98-107) mmol/L Carbon Dioxide 28 (22-30) mmol/L Anion Gap 17.6 H (5-15) MEQ/L BUN 25 H (7-17) mg/dL Creatinine 1.49 H (0.52-1.04) mg/dL Estimated GFR 36.3 ML/MIN Glucose 147 H (74-106) mg/dL Lactic Acid (0.4-2.0) Calcium 9.1 (8.4-10.2) mg/dL Total Bilirubin 0.80 (0.2-1.3) mg/dL AST 22 (14-36) U/L ALT 15 (0-35) U/L Alkaline Phosphatase 91 (38-126) U/L Troponin I (0.000-0.034) ng/mL Serum Total Protein 7.0 (6.3-8.2) g/dL Albumin 4.2 (3.5-5.0) g/dL Urine Color (Yellow) Urine Appearance (Clear) Urine pH (4.6-8.0) Ur Specific [place] (1.005-1.030) Urine Protein (Negative) Urine Glucose (UA) (Negative) mg/dL Urine Ketones (Negative) Urine Blood (Negative) Urine Nitrite (Negative) Urine Bilirubin (Negative) Urine Urobilinogen (0.2) mg/dL Ur Leukocyte Esterase (Negative) U Hyaline Cast (Auto) (0-2) /LPF Urine Microscopic RBC (0-5) /HPF Urine Microscopic WBC (0-5) /HPF Ur Epithelial Cells (None Seen) /HPF Urine Bacteria (None Seen) /HPF Urine Culture Reflexed (NO) Salicylates (2-20) mg/dL Urine Opiates Level (NEGATIVE) Ur Methadone (NEGATIVE) Acetaminophen (10-30) ug/ml Urine Barbiturates (NEGATIVE) Ur Phencyclidine (PCP) (NEGATIVE) Urine Amphetamine (NEGATIVE) U Benzodiazepine Level (NEGATIVE) Urine Cocaine (NEGATIVE) Urine Marijuana (THC) (NEGATIVE) Ethyl Alcohol < 10 (0-10) mg/dL Influenza Type A Ag (NEGATIVE) Influenza Type B Ag (NEGATIVE) RSV (PCR) (Negative) SARS-CoV-2 (PCR) (NEGATIVE) Slides for Path Review YES 12/27/22 Range/Units 11:33 WBC (4.0-10.5) x10^3/uL RBC (4.1-5.4) x10^6/uL Hgb (12.0-16.0) g/dL Hct (35-47) % MCV (78-100) fL MCH (26-32) pg MCHC (32-36) g/dL RDW (11.5-14.0) % Plt Count (150-450) x10^3/uL MPV (7.5-11.0) fL Gran % (36.0-66.0) % Immature Gran % (Auto) (0.00-0.4) % Nucleat RBC Rel Count (0.00-0.1) % Eos # (Auto) (0-0.5) x10^3/uL Immature Gran # (Auto) (0.00-0.03) x10^3u/L Absolute Lymphs (auto) (1.0-4.6) x10^3/uL Absolute Monos (auto) (0.0-1.3) x10^3/uL Absolute Nucleated RBC (0.00-0.01) x10^3u/L Lymphocytes % (24.0-44.0) % Monocytes % (0.0-12.0) % Eosinophils % (0.00-5.0) % Basophils % (0.0-0.4) % Absolute Granulocytes (1.4-6.9) x10^3/uL Basophils # (0-0.4) x10^3/uL PT (9.4-12.5) SECONDS INR (0.8-3.0) APTT (25.1-36.5) SECONDS Puncture Site pCO2 (35-45) mmHg pO2 (75-100) mmHg Base Excess (-2.0-2.0) O2 Saturation (94-100) g/dF ABG pH (7.35-7.45) ABG HCO3 (22-28) ABG O2 Sat (Measured) (95-100) % Azael Test A-a Gradient a/A Ratio Hemoglobin Carboxyhemoglobin (0.0-6.9) % THgb Methemoglobin (1.4-1.5) % Potassium (3.5-5.1) Temperature C POC O2 Flow Rate % Sodium (137-145) mmol/L Chloride (98-107) mmol/L Carbon Dioxide (22-30) mmol/L Anion Gap (5-15) MEQ/L BUN (7-17) mg/dL Creatinine (0.52-1.04) mg/dL Estimated GFR ML/MIN Glucose (74-106) mg/dL Lactic Acid 2.7 H (0.4-2.0) Calcium (8.4-10.2) mg/dL Total Bilirubin (0.2-1.3) mg/dL AST (14-36) U/L ALT (0-35) U/L Alkaline Phosphatase (38-126) U/L Troponin I (0.000-0.034) ng/mL Serum Total Protein (6.3-8.2) g/dL Albumin (3.5-5.0) g/dL Urine Color (Yellow) Urine Appearance (Clear) Urine pH (4.6-8.0) Ur Specific [place] (1.005-1.030) Urine Protein (Negative) Urine Glucose (UA) (Negative) mg/dL Urine Ketones (Negative) Urine Blood (Negative) Urine Nitrite (Negative) Urine Bilirubin (Negative) Urine Urobilinogen (0.2) mg/dL Ur Leukocyte Esterase (Negative) U Hyaline Cast (Auto) (0-2) /LPF Urine Microscopic RBC (0-5) /HPF Urine Microscopic WBC (0-5) /HPF Ur Epithelial Cells (None Seen) /HPF Urine Bacteria (None Seen) /HPF Urine Culture Reflexed (NO) Salicylates (2-20) mg/dL Urine Opiates Level (NEGATIVE) Ur Methadone (NEGATIVE) Acetaminophen (10-30) ug/ml Urine Barbiturates (NEGATIVE) Ur Phencyclidine (PCP) (NEGATIVE) Urine Amphetamine (NEGATIVE) U Benzodiazepine Level (NEGATIVE) Urine Cocaine (NEGATIVE) Urine Marijuana (THC) (NEGATIVE) Ethyl Alcohol (0-10) mg/dL Influenza Type A Ag (NEGATIVE) Influenza Type B Ag (NEGATIVE) RSV (PCR) (Negative) SARS-CoV-2 (PCR) (NEGATIVE) Slides for Path Review - Progress Progress: improved Progress Note: 12/27/22 13:26 Full code per sisters Additional history per sisters Nursing notes and all vital signs reviewed All Lab results and CT results reviewed and shared w pt's sisters Rad called and stated that Shah catheter in vagina/Repositioned per nursing w urine output Pt moving too much to obtain CT's, so 0.5mg IV Ativan given. Pt still w too much movement to obtain CT's, so 5mg IV Haldol given. CT of head and C-spine obtained, but pt needed 5mg IV additional Haldol to obtain CT of head/C-spine/Chest/Abdomen-pelvis which were neg for acute injury Observation admit per Dr. Bloom-S Pt admitted for continued lethargy which is most likely due to accidental OD and meds given to obtain CT images Pt w good airway, good sats, and good BP upon observation admit Pt's hyperkalemia treated w NaHCO3/D50/IV insulin Discussed with : Marianela Will see patient in: hospital (observation) Counseled pt/family regarding: lab results, diagnosis, rad results Medical Desision Making - Independent Historian Additional History obtained from: EMS - Diagnostic Testing Diagnostic Testing: Diagnostic tests were ordered,analyzed, and reviewed by me and used in my me dical decision making for this patient. Radiologic studies (if ordered) were read by me initially then discussed with the radiologist . All reviewed and shared w pt - Departure Departure Disposition: Observation Clinical Impression: Altered level of consciousness, Hyperkalemia, Elevated troponin Condition: Stable Critical Care Time: Yes Critical Care Time(excluding separately billable procedures): Critical 75-104 mins
[2022-12-27] MEDS ORDERED: Sodium Chloride 0.9% 1000 ML 1,000 ML IV STA (12:44)
[2022-12-27 12:56] LABS: INFLUENZA A NEGATIVE (NEGATIVE); INFLUENZA B NEGATIVE (NEGATIVE); RESPIRATORY SYNCTIAL VIRUS NEGATIVE (Negative); SARS-CoV-2 Xpert Express NEGATIVE (NEGATIVE)
[2022-12-27 13:54] LABS: A-aADO2 363; ABG HEMOGLOBIN 11.6; ABG POTASSIUM 5.5 (3.5-5.1); ARTERIAL BLD GAS O2 SATURATION 99.9 % (95-100); ARTERIAL BLOOD GAS BASE EXCESS 1.5 (-2.0-2.0); ARTERIAL BLOOD GAS FIO2 100 %; ARTERIAL BLOOD GAS PCO2 52 mmHg (35-45); ARTERIAL BLOOD GAS PO2 285 mmHg (75-100); ARTERIAL BLOOD GAS pH 7.34 (7.35-7.45); CARBOXYHEMOGLOBIN 4.5 % THgb (0.0-6.9); HCO3- 28.1 (22-28); HGB O2 SAT 94.4 g/dF (94-100); paO2 pAO1 0.44
[2022-12-27 13:55] LABS: ABG SITE RIGHT BRACHIAL
[2022-12-27 15:40] LABS: ANION GAP 14.3 MEQ/L (5-15); Calcium 8.4 mg/dL (8.4-10.2); Creatinine 1 1.4 mg/dL (0.52-1.04); Potassium 5.8 mmol/L (3.5-5.1)
[2022-12-27] MEDS ORDERED: SODIUM BICARBONATE 50 MEQ/50 ML ABBOJECT IV ONE ×2 (15:49→16:02)
[2022-12-27] MEDS ORDERED: HUMULIN R IV ONE (15:50)
[2022-12-27] MEDS ORDERED: D50W 50 ml Abboject IV ONE ×2 (15:50→16:02)
[2022-12-27] MEDS ORDERED: PROVENTIL 2.5 MG/3 ML NEB IH ONE ×2 (15:51→16:04)
[2022-12-27 15:57] LABS: Slide Review 1 YES
[2022-12-27] MEDS ORDERED: HUMULIN R ONE (16:02)
[2022-12-27] MEDS ORDERED: Sodium Chloride 0.9% 1000 ML 1,000 ML ONE ×2 (16:02→18:10)
[2022-12-27 16:33] LABS: A-aADO2 98; ABG HEMOGLOBIN 11.6; ABG POTASSIUM 4.5 (3.5-5.1); ARTERIAL BLD GAS O2 SATURATION 95.1 % (95-100); ARTERIAL BLOOD GAS BASE EXCESS 3.5 (-2.0-2.0); ARTERIAL BLOOD GAS FIO2 32 %; ARTERIAL BLOOD GAS PCO2 53 mmHg (35-45); ARTERIAL BLOOD GAS PO2 64 mmHg (75-100); ARTERIAL BLOOD GAS pH 7.36 (7.35-7.45); CARBOXYHEMOGLOBIN 3.8 % THgb (0.0-6.9); HCO3- 29.9 (22-28); HGB O2 SAT 90.6 g/dF (94-100); Methhemoglobin 0.8 % (1.4-1.5)
[2022-12-27 16:34] LABS: ABG SITE RIGHT BRACHIAL
[2022-12-27 16:36] LABS: Appearance Clear (Clear); Bacteria Many /HPF (None Seen); Bilirubin Negative (Negative); Blood Negative (Negative); Epithelial Cells None Seen /HPF (None Seen); Glucose, Urine Negative (Negative); Ketones Negative (Negative); Leukocyte Esterase Negative (Negative); Nitrite Negative (Negative); Ph 5.5 (4.6-8.0); Protein,Urine Dip 100 (Negative); RBC 0-2 /HPF (0-5); Specific Gravity 1.015 (1.005-1.030); WBC 0-2 /HPF (0-5)
[2022-12-27 16:37] LABS: Amphetamine,Urine NEGATIVE (NEGATIVE); Barbiturate,Urine NEGATIVE (NEGATIVE); Benzodiazepine,Urine NEGATIVE (NEGATIVE); Cocaine,Urine NEGATIVE (NEGATIVE); Methadone,Urine NEGATIVE (NEGATIVE); Opiate,Urine POSITIVE (NEGATIVE); PCP,Urine NEGATIVE (NEGATIVE); THC,Urine NEGATIVE (NEGATIVE)
[2022-12-27 16:40] LABS: ADD URINE CULTURE? YES (NO)
[2022-12-27] MEDS ORDERED: ROCEPHIN 1 Gm-D5w 50 ml Bag** 1 G/50 ML IVPB IV STA (17:41)
[2022-12-27] MEDS ORDERED: Zofran 4 MG/2 ML VIAL IV PRN (17:42)
[2022-12-27] MEDS ORDERED: Sodium Chloride 0.9% 1000 ML 1,000 ML IV SCH (17:45)
[2022-12-27] MEDS ORDERED: ROCEPHIN 1 Gm-D5w 50 ml Bag** 1 G/50 ML IVPB IV ONE (18:10)
--- NOTE | 2022-12-27 19:57 | XRAY ---
Indication: Status post fall. Acute mental status change. Multiple contiguous axial images obtained through the head without contrast. Comparison: December 04, 2022 Again age-appropriate global atrophy. No acute intracranial hemorrhage, abnormal extra-axial fluid collection, or mass effect. Fourth ventricle is midline without hydrocephalus. Aguilera-white matter differentiation preserved. Bony calvarium intact. New incompletely visualized NG tube. Also new moderate mucosal thickening both ethmoid and lesser degree both maxillary sinuses with right maxillary sinus fluid leveling. Stable partial opacification right mastoid air cells. Impression: 1. Continued negative CT head without contrast exam. 2. New paranasal sinus disease with NG tube in situ. 3. Stable partial opacification right mastoid air cells. Comment: Preliminary interpretation made by [facility]. No critical discrepancy.
--- NOTE | 2022-12-27 19:59 | XRAY ---
Indication: Status post fall. Acute mental status change. Multiple contiguous axial images obtained through the cervical spine. Sagittal and coronal reformatted images obtained. Comparison: None Study is degraded by motion artifact even with repeat CT. Age-related osteopenia. Axial images grossly negative for acute fracture, suspicious bony lesions, or spinal canal stenosis. Mild atlantoaxial and minimal/mild C3-C7 degenerative changes and mild multilevel bilateral degenerative facet hypertrophy. Sagittal and coronal reformatted images demonstrate normal alignment with C4-C7 disc space narrowing. No acute compression fracture, dislocation, or jumped facet. Normal appearing craniocervical junction. Visualized noncontrasted soft tissues demonstrates a few small bilateral thyroid hypodense nodules/cysts, largest on the left measuring 1.2 cm. Mild/moderate bilateral carotid calcifications and incompletely visualized nasal cannula terminating oropharynx. CT head and CT chest reported separately. Impression: 1. Motion artifact. 2. No gross acute fracture or subluxation. 3. Osteopenia, multilevel degenerative changes, and bilateral carotid calcifications. 3. Bilateral thyroid hypodense nodules/cysts better evaluated with sonogram if clinically warranted. Comment: Preliminary interpretation made by [facility]. No critical discrepancy.
--- NOTE | 2022-12-27 20:03 | XRAY ---
Indication: Status post fall. Acute mental status change. Multiple contiguous axial images obtained through the chest without contrast. Comparison: None Lungs demonstrates moderate bilateral dependent atelectasis and mild diffuse pulmonary emphysema. No suspicious pulmonary mass, infiltrate, effusion, or pneumothorax. Heart is not enlarged. Aorta moderately arteriosclerotic without aneurysm. Small subcarinal and tiny right hilar calcified nodes. No pathologic mediastinal lymphadenopathy. Bony thorax intact with osteopenia and minimal degenerative changes throughout the spine. Query nondisplaced manubrium fracture. L1 and L2 vertebral bodies demonstrates concave endplates either remote fractures versus Schmorl nodes. CT abdomen/pelvis reported separately. Impression: 1. Query nondisplaced manubrium fracture. 2. Bilateral dependent atelectasis, pulmonary emphysema, arteriosclerotic disease, and old granulomatous disease. 3. Osteopenia, multilevel degenerative spondylosis, and L1/L2 Schmorl nodes versus remote endplate fractures. Comment: Preliminary interpretation made by [facility]. No critical discrepancy.
[2022-12-27] MEDS ORDERED: D50W 50 ml Abboject IV PRN (20:05)
[2022-12-27] MEDS ORDERED: GlucaGen 1 MG IM PRN (20:05)
[2022-12-27] MEDS ORDERED: Glutose 15 GM ORAL GEL PO PRN (20:05)
--- NOTE | 2022-12-27 20:09 | XRAY ---
Indication: Status post fall. Acute mental status change. Multiple contiguous axial images obtained through the abdomen and pelvis without contrast. Comparison: None CT chest reported separately. Respiration artifact throughout degrades the study. Noncontrasted stomach and bowel loops appear nonobstructed. Mild diffuse scattered colonic fecal debris. No free fluid/air. Shah balloon catheter tip is in the vagina. Mild distended gallbladder with 1.8 cm gallstone and tiny gravel in the dependent portion. Chronic findings including tiny hepatic/splenic calcified granulomas, 1.4 cm right/2.7 cm left adrenal adenomas, and uterine chunky calcified fibroids. Remaining liver, gallbladder, pancreas, spleen, adrenal glands, kidneys, ureters, bladder, and uterus are unremarkable. Moderate scattered aortoiliac calcifications without AAA. Osseous structures intact with osteopenia and remote-appearing L2-L4 endplate fractures. 6.9 x 2.8 cm subcutaneous fluid collection lateral to right hip presumed hematoma. Impression: 1. Respiration artifact. 2. Malpositioned Shah balloon catheter with the tip in the vagina. 3. Mild diffuse fecal stasis. 4. Lateral right hip subcutaneous hematoma. No acute fracture. 5. Chronic findings including cholelithiasis/gravel, bilateral adrenal adenomas, uterine calcified fibroids, arteriosclerotic disease, chronic bony findings, and old granulomatous disease. Comment: Preliminary interpretation made by C. No critical discrepancy.
[2022-12-27] MEDS ORDERED: ENOXAPARIN SODIUM SQ ONE (20:33)
[2022-12-27] MEDS: Dextrose 5%-NS IV Solution 1000 ML 1,000 ML IV SCH (20:37)
[2022-12-27] MEDS ORDERED: FEVERALL 650 MG PR PRN (22:18)
[2022-12-28 03:53] LABS: A-aADO2 80; ABG HEMOGLOBIN 11.4; ABG POTASSIUM 4.3 (3.5-5.1); ARTERIAL BLD GAS O2 SATURATION 93.6 % (95-100); ARTERIAL BLOOD GAS BASE EXCESS 4.4 (-2.0-2.0); ARTERIAL BLOOD GAS FIO2 28 %; ARTERIAL BLOOD GAS PCO2 47 mmHg (35-45); ARTERIAL BLOOD GAS PO2 61 mmHg (75-100); ARTERIAL BLOOD GAS pH 7.41 (7.35-7.45); CARBOXYHEMOGLOBIN 2.7 % THgb (0.0-6.9); HCO3- 29.8 (22-28); HGB O2 SAT 90.2 g/dF (94-100); Lactic Acid 0.5 (0.4-2.0); Methhemoglobin 0.9 % (1.4-1.5); paO2 pAO1 0.43
[2022-12-28 03:54] LABS: ABG SITE LEFT RADIAL; ALLEN TEST OK? YES
[2022-12-28 04:36] LABS: ALBUMIN 3.4 g/dL (3.5-5.0); ANION GAP 8.4 MEQ/L (5-15); BILIRUBIN,TOTAL 0.4 mg/dL (0.2-1.3); Calcium 8.3 mg/dL (8.4-10.2); Creatinine 1 1.01 mg/dL (0.52-1.04); EST GLOMERULAR FILTRATION RATE 56.8 ML/MIN; Potassium 4.4 mmol/L (3.5-5.1); Total Protein 5.9 g/dL (6.3-8.2)
[2022-12-28 04:58] LABS: BASOPHIL % 0.4 % (0.0-0.4); Basophil (Absolute #) 0.04 x10^3/uL (0-0.4); Eosinophil % 0.1 % (0.00-5.0); Eosinophil (Absolute #) 0.01 x10^3/uL (0-0.5); Hematocrit 35.3 % (35-47); Hemoglobin 10.6 g/dL (12.0-16.0); IMMATURE GRAN # 0.03 x10^3u/L (0.00-0.03); IMMATURE GRAN % 0.3 % (0.00-0.4); Lymphocyte (Absolute #) 1.67 x10^3/uL (1.0-4.6); Lymphocytes % 16.9 % (24.0-44.0); Mean Cell Volume 98.6 fL (78-100); Mean Corpuscular Hemoglobin 29.6 pg (26-32); Mean Platelet Volume 11.6 fL (7.5-11.0); Monocyte (Absolute #) 0.74 x10^3/uL (0.0-1.3); Monocytes % 7.5 % (0.0-12.0); Neutrophil % 74.8 % (36.0-66.0); Platelet Count 223 x10^3/uL (150-450); Red Blood Count 3.58 x10^6/uL (4.1-5.4); Red Cell Distribution Width 15.2 % (11.5-14.0); White Blood Count 9.9 x10^3/uL (4.0-10.5)
[2022-12-28] MEDS: Dextrose 5%-NS IV Solution 1000 ML 1,000 ML IV SCH ×2 (08:45→20:48)
[2022-12-28] MEDS ORDERED: NON-FORMULARY ITEM (Amlodipine Besylate [Norvasc] 10 MG Tablet) PO SCH (10:00)
[2022-12-28] MEDS ORDERED: HYDROCODONE-ACETAMIN 10-325 MG PO PRN (10:00)
[2022-12-28] MEDS ORDERED: NON-FORMULARY ITEM (Cyanocobalamin (Vitamin B-12) [Vitamin B12] 2,500 MCG Tab.Chew) PO SCH (10:00)
[2022-12-28] MEDS ORDERED: ENOXAPARIN SODIUM SQ SCH ×2 (10:00→22:00)
[2022-12-28] MEDS: solu-MEDROL 40 MG, Sterile H2O 10 ml 1 ML IV SCH ×4 (10:08→22:39)
[2022-12-28] MEDS: Requip 0.5 MG PO PRN (10:08)
[2022-12-28] MEDS: PROTONIX 40 MG IV IV SCH (10:08)
[2022-12-28] MEDS: Neurontin PO SCH ×3 (11:11→22:39)
[2022-12-28] MEDS: Acidophilus TABLET PO SCH ×2 (11:11→22:39)
[2022-12-28] MEDS: Vitamin B-12 500 MCG PO SCH (11:11)
[2022-12-28] MEDS: PLAVIX Tablet PO SCH (11:12)
[2022-12-28] MEDS: COREG 12.5 MG PO SCH ×2 (11:12→22:39)
[2022-12-28] MEDS: ECOTRIN 81 MG PO SCH (11:12)
[2022-12-28] MEDS: LASIX 20 MG PO SCH (11:12)
[2022-12-28] MEDS: NORVASC 5 MG PO SCH (11:12)
[2022-12-28] MEDS: Maxzide-25MG Tablet PO SCH (11:13)
[2022-12-28] MEDS: CLONIDINE 0.1 MG TABLET PO SCH ×2 (11:13→22:38)
[2022-12-28] MEDS: Nicoderm CQ 21 MG TOP SCH (11:14)
[2022-12-28] MEDS ORDERED: Augmentin 875-125 Tablet PO SCH (12:00)
[2022-12-28] MEDS: ROCEPHIN 1 Gm-D5w 50 ml Bag** 1 G/50 ML IVPB IV SCH (13:04)
--- NOTE | 2022-12-28 13:42 | PCM.HP ---
History of Present Illness - Chief Complaint Chief Complaint: altered loc, possible accidental overdose History of Present Illness: is a 77 year old female pt of mine from [facility] with HTN, COPD, peripheral neuropathy, OA, COPD, and osteoporosis who was admitted through ER wtih AMD, Drug OD, and elevated troponin. Her family couldn't reach her yesterday, so they went to her house and found her slumped over in front of the heater and called EMS. O2 sat was 60%. There was apparently a bottle of her opioid near. She was given Narcan 1mg x2 in the ambulance with some increased alertness (GCS upon arrival was 9, but she did have a good airway). She had evidence of having had a fall. Her CTs of head/neck/chest/abd/pelvis were nonacute (although she did have a question of nondisplaced manubrium fx). This morning, pt woke up. She was having some memory issues initially; for me, alert to place and self, and date is 12/16/22. Troponins have been elevated around 0.050. Pt is a full code. She is somewhat irate this morning about being in the hospital again, and wants to go home. - Review of Systems All Other Systems: Unable due to condition Medications & Allergies Home Medications: Home Medication List Clopidogrel Bisulfate [PLAVIX Tablet] 75 mg PO DAILY 07/15/15 [History Confirmed 12/27/22] Gabapentin [Neurontin] 800 mg PO TID 07/15/15 [History Confirmed 12/27/22] Hctz/Triamterene 25/37.5 mg [Maxzide 25MG] 1 tab PO DAILY #30 tab 07/15/15 [Rx Confirmed 11/30/22] Amlodipine Besylate [Norvasc] 10 mg PO DAILY 11/30/22 [History Confirmed 12/27/22] Aspirin EC 81 mg [Ecotrin 81 mg] 81 mg PO DAILY 11/30/22 [History Confirmed 12/27/22] Carvedilol 12.5 mg [Coreg 12.5 mg] 12.5 mg PO BID 11/30/22 [History Confirmed 11/30/22] Clonidine HCl 0.1 mg [Clonidine 0.1 mg Tablet] 0.1 mg PO BID 11/30/22 [History Confirmed 11/30/22] Cyanocobalamin (Vitamin B-12) [Vitamin B12] 1,000 mcg PO DAILY 11/30/22 [History Confirmed 12/27/22] Furosemide 20 mg [Lasix 20 mg] 20 mg PO DAILY 11/30/22 [History Confirmed 12/27/22] Hydrocodone/Acetaminophen [Hydrocodone-Acetamin 10-325 mg] 1 each PO TIDPRN 11/30/22 [History Confirmed 12/27/22] Pravastatin Sodium 40 mg PO HS 11/30/22 [History Confirmed 12/27/22] Ropinirole HCl 0.5 mg [Requip 0.5 MG] 0.5 mg PO HSPRN PRN 11/30/22 [History Confirmed 12/27/22] Amox Tr/Potass Clav. 875 mg [Augmentin 875-125 Tablet] 875 mg PO BID #8 tablet 12/04/22 [Rx] Lactobacillus Acidophilus [Acidophilus TABLET] 1 tab PO BID #8 tablet 12/04/22 [Rx Confirmed 12/27/22] Nicotine 21 mg [Nicoderm CQ 21 MG] 21 mg TOP Q24H10 #30 patch 12/04/22 [Rx] Prednisone 20 mg [Deltasone 20 mg] 20 mg PO DAILY #17 tablet 12/04/22 [Rx] Allergies/Adverse Reactions: Allergies Allergy/AdvReac Type Severity Reaction Status Date / Time No Known Drug Allergies Allergy Unverified 11/30/22 20:07 - Past Medical History Past Medical History: Yes (unable to assess) Neurological History: Peripheral Neuropathy Cardiac History: High Cholesterol, Hypertension, Peripheral Vascular Disease Comment: Unable to assess patient's medical hx d/t patient AMS. Pt's hx obtained from previous medical records. - Past Surgical History Past Surgical History: (unable to assess) Female Surgical History: Lumpectomy Other Surgical History: Unable to assess patient's medical hx d/t patient AMS. Pt's hx obtained from previous medical records. - Social History Smoking Status: Heavy tobacco smoker How long have you smoked: 55 Exposure to second hand smoke: Yes Alcohol: None Drug Use: other - Physical Exam Vital Signs: Vital Signs - 24 hr Temp Pulse Resp BP Pulse Ox 12/28/22 12:03 92 L 12/28/22 08:00 98.8 F 99 H 16 154/55 94 L 12/28/22 05:24 99 F 91 H 18 167/58 97 12/28/22 03:57 99 F 90 18 153/55 98 12/28/22 02:44 98.8 F 100 H 18 98 12/28/22 02:00 99 F 87 18 159/76 98 12/28/22 00:13 99.7 F 114 H 22 157/59 3 L 12/27/22 23:48 99.7 F 76 16 137/51 93 L 12/27/22 23:24 100 F 77 15 158/50 93 L 12/27/22 22:15 95 12/27/22 22:13 100.6 F 87 18 129/75 94 L 12/27/22 21:32 100.2 F 86 16 123/52 96 12/27/22 21:16 100 F 74 20 140/53 96 12/27/22 20:38 99.7 F 92 H 20 145/49 97 12/27/22 20:12 88 26 H 155/70 93 L 12/27/22 19:33 94 H 16 154/77 95 12/27/22 19:11 96 12/27/22 16:08 79 18 100 12/27/22 16:00 76 17 135/61 76 L 12/27/22 15:00 71 20 113/57 100 12/27/22 14:03 78 16 126/59 100 General Appearance: no apparent distress, alert Neurologic Exam: cooperative, disoriented, other (mad at being in the hospital) Eye Exam: eyes nml inspection Ears, Nose, Throat Exam: moist mucous membranes Neck Exam: normal inspection, non-tender, No lymphadenopathy, No thyromegaly Respiratory Exam: diminished breath sounds (fair air exchange), wheezing (scattered, faint), No crackles/rales, No rhonchi Cardiovascular Exam: regular rate/rhythm, normal heart sounds, No murmur Gastrointestinal/Abdomen Exam: soft, normal bowel sounds, No tenderness, No distention, No mass, No guarding, No rebound Back Exam: normal inspection, No rash Extremity Exam: other (chronic venous stasis change), No pedal edema, No swelling Skin Exam: warm, dry, No rash Wound Assessment: Skin/Wound Assessment Wound/Incision Assessment Start: 12/27/22 23:18 Text: Status: Active Freq: Q6H Protocol: Document 12/28/22 11:00 CHARO (Rec: 12/28/22 12:11 RDULISES [id number]) Wound Photo Photo Taken Yes Date: 12/27/22 Time: 19:45 Results - Labs Lab/Micro Results: Lab Results-Last 24 Hours 12/27/22 12/27/22 12/27/22 Range/Units 12:02 13:38 13:49 WBC (4.0-10.5) x10^3/uL RBC (4.1-5.4) x10^6/uL Hgb (12.0-16.0) g/dL Hct (35-47) % MCV (78-100) fL MCH (26-32) pg MCHC (32-36) g/dL RDW (11.5-14.0) % Plt Count (150-450) x10^3/uL MPV (7.5-11.0) fL Gran % (36.0-66.0) % Immature Gran % (Auto) (0.00-0.4) % Nucleat RBC Rel Count (0.00-0.1) % Eos # (Auto) (0-0.5) x10^3/uL Immature Gran # (Auto) (0.00-0.03) x10^3u/L Absolute Lymphs (auto) (1.0-4.6) x10^3/uL Absolute Monos (auto) (0.0-1.3) x10^3/uL Absolute Nucleated RBC (0.00-0.01) x10^3u/L Lymphocytes % (24.0-44.0) % Monocytes % (0.0-12.0) % Eosinophils % (0.00-5.0) % Basophils % (0.0-0.4) % Absolute Granulocytes (1.4-6.9) x10^3/uL Basophils # (0-0.4) x10^3/uL Puncture Site RIGHT BRACHIAL pCO2 52 H (35-45) mmHg pO2 285 H* (75-100) mmHg Base Excess 1.5 (-2.0-2.0) O2 Saturation 94.4 (94-100) g/dF ABG pH 7.34 L (7.35-7.45) ABG HCO3 28.1 H (22-28) ABG O2 Sat (Measured) 99.9 (95-100) % Azael Test NOT APPLICABLE A-a Gradient 363 a/A Ratio 0.44 Hemoglobin 11.6 Carboxyhemoglobin 4.5 (0.0-6.9) % THgb Methemoglobin 1.0 L (1.4-1.5) % Potassium 5.5 H (3.5-5.1) Temperature 37.0 C POC O2 Flow Rate 100 % Sodium (137-145) mmol/L Chloride (98-107) mmol/L Carbon Dioxide (22-30) mmol/L Anion Gap (5-15) MEQ/L BUN (7-17) mg/dL Creatinine (0.52-1.04) mg/dL Estimated GFR ML/MIN Glucose (74-106) mg/dL POC Glucometer (74 to 106) mg/dL Lactic Acid 0.7 (0.4-2.0) Calcium (8.4-10.2) mg/dL Total Bilirubin (0.2-1.3) mg/dL AST (14-36) U/L ALT (0-35) U/L Alkaline Phosphatase (38-126) U/L Troponin I (0.000-0.034) ng/mL Serum Total Protein (6.3-8.2) g/dL Albumin (3.5-5.0) g/dL Urine Color (Yellow) Urine Appearance (Clear) Urine pH (4.6-8.0) Ur Specific [place] (1.005-1.030) Urine Protein (Negative) Urine Glucose (UA) (Negative) mg/dL Urine Ketones (Negative) Urine Blood (Negative) Urine Nitrite (Negative) Urine Bilirubin (Negative) Urine Urobilinogen (0.2) mg/dL Ur Leukocyte Esterase (Negative) U Hyaline Cast (Auto) (0-2) /LPF Urine Microscopic RBC (0-5) /HPF Urine Microscopic WBC (0-5) /HPF Ur Epithelial Cells (None Seen) /HPF Urine Bacteria (None Seen) /HPF Urine Culture Reflexed (NO) Urine Opiates Level (NEGATIVE) Ur Methadone (NEGATIVE) Urine Barbiturates (NEGATIVE) Ur Phencyclidine (PCP) (NEGATIVE) Urine Amphetamine (NEGATIVE) U Benzodiazepine Level (NEGATIVE) Urine Cocaine (NEGATIVE) Urine Marijuana (THC) (NEGATIVE) Slides for Path Review YES 12/27/22 12/27/22 12/27/22 Range/Units 14:32 14:32 14:58 WBC (4.0-10.5) x10^3/uL RBC (4.1-5.4) x10^6/uL Hgb (12.0-16.0) g/dL Hct (35-47) % MCV (78-100) fL MCH (26-32) pg MCHC (32-36) g/dL RDW (11.5-14.0) % Plt Count (150-450) x10^3/uL MPV (7.5-11.0) fL Gran % (36.0-66.0) % Immature Gran % (Auto) (0.00-0.4) % Nucleat RBC Rel Count (0.00-0.1) % Eos # (Auto) (0-0.5) x10^3/uL Immature Gran # (Auto) (0.00-0.03) x10^3u/L Absolute Lymphs (auto) (1.0-4.6) x10^3/uL Absolute Monos (auto) (0.0-1.3) x10^3/uL Absolute Nucleated RBC (0.00-0.01) x10^3u/L Lymphocytes % (24.0-44.0) % Monocytes % (0.0-12.0) % Eosinophils % (0.00-5.0) % Basophils % (0.0-0.4) % Absolute Granulocytes (1.4-6.9) x10^3/uL Basophils # (0-0.4) x10^3/uL Puncture Site pCO2 (35-45) mmHg pO2 (75-100) mmHg Base Excess (-2.0-2.0) O2 Saturation (94-100) g/dF ABG pH (7.35-7.45) ABG HCO3 (22-28) ABG O2 Sat (Measured) (95-100) % Azael Test A-a Gradient a/A Ratio Hemoglobin Carboxyhemoglobin (0.0-6.9) % THgb Methemoglobin (1.4-1.5) % Potassium 5.8 H (3.5-5.1) Temperature C POC O2 Flow Rate % Sodium 140 (137-145) mmol/L Chloride 102 (98-107) mmol/L Carbon Dioxide 30 (22-30) mmol/L Anion Gap 14.3 (5-15) MEQ/L BUN 26 H (7-17) mg/dL Creatinine 1.40 H (0.52-1.04) mg/dL Estimated GFR 39.0 ML/MIN Glucose 104 (74-106) mg/dL POC Glucometer (74 to 106) mg/dL Lactic Acid (0.4-2.0) Calcium 8.4 (8.4-10.2) mg/dL Total Bilirubin (0.2-1.3) mg/dL AST (14-36) U/L ALT (0-35) U/L Alkaline Phosphatase (38-126) U/L Troponin I 0.050 H* (0.000-0.034) ng/mL Serum Total Protein (6.3-8.2) g/dL Albumin (3.5-5.0) g/dL Urine Color Yellow (Yellow) Urine Appearance Clear (Clear) Urine pH 5.5 (4.6-8.0) Ur Specific [place] 1.015 (1.005-1.030) Urine Protein 100 A (Negative) Urine Glucose (UA) Negative (Negative) mg/dL Urine Ketones Negative (Negative) Urine Blood Negative (Negative) Urine Nitrite Negative (Negative) Urine Bilirubin Negative (Negative) Urine Urobilinogen 1.0 A (0.2) mg/dL Ur Leukocyte Esterase Negative (Negative) U Hyaline Cast (Auto) 11-25 A (0-2) /LPF Urine Microscopic RBC 0-2 (0-5) /HPF Urine Microscopic WBC 0-2 (0-5) /HPF Ur Epithelial Cells None Seen (None Seen) /HPF Urine Bacteria Many A (None Seen) /HPF Urine Culture Reflexed YES (NO) Urine Opiates Level (NEGATIVE) Ur Methadone (NEGATIVE) Urine Barbiturates (NEGATIVE) Ur Phencyclidine (PCP) (NEGATIVE) Urine Amphetamine (NEGATIVE) U Benzodiazepine Level (NEGATIVE) Urine Cocaine (NEGATIVE) Urine Marijuana (THC) (NEGATIVE) Slides for Path Review 12/27/22 12/27/22 12/27/22 Range/Units 14:58 16:15 18:10 WBC (4.0-10.5) x10^3/uL RBC (4.1-5.4) x10^6/uL Hgb (12.0-16.0) g/dL Hct (35-47) % MCV (78-100) fL MCH (26-32) pg MCHC (32-36) g/dL RDW (11.5-14.0) % Plt Count (150-450) x10^3/uL MPV (7.5-11.0) fL Gran % (36.0-66.0) % Immature Gran % (Auto) (0.00-0.4) % Nucleat RBC Rel Count (0.00-0.1) % Eos # (Auto) (0-0.5) x10^3/uL Immature Gran # (Auto) (0.00-0.03) x10^3u/L Absolute Lymphs (auto) (1.0-4.6) x10^3/uL Absolute Monos (auto) (0.0-1.3) x10^3/uL Absolute Nucleated RBC (0.00-0.01) x10^3u/L Lymphocytes % (24.0-44.0) % Monocytes % (0.0-12.0) % Eosinophils % (0.00-5.0) % Basophils % (0.0-0.4) % Absolute Granulocytes (1.4-6.9) x10^3/uL Basophils # (0-0.4) x10^3/uL Puncture Site RIGHT BRACHIAL pCO2 53 H (35-45) mmHg pO2 64 L (75-100) mmHg Base Excess 3.5 H (-2.0-2.0) O2 Saturation 90.6 L (94-100) g/dF ABG pH 7.36 (7.35-7.45) ABG HCO3 29.9 H* (22-28) ABG O2 Sat (Measured) 95.1 (95-100) % Azael Test NOT APPLICABLE A-a Gradient 98 a/A Ratio 0.40 Hemoglobin 11.6 Carboxyhemoglobin 3.8 (0.0-6.9) % THgb Methemoglobin 0.8 L (1.4-1.5) % Potassium 4.5 (3.5-5.1) Temperature 37.0 C POC O2 Flow Rate 32 % Sodium (137-145) mmol/L Chloride (98-107) mmol/L Carbon Dioxide (22-30) mmol/L Anion Gap (5-15) MEQ/L BUN (7-17) mg/dL Creatinine (0.52-1.04) mg/dL Estimated GFR ML/MIN Glucose (74-106) mg/dL POC Glucometer (74 to 106) mg/dL Lactic Acid (0.4-2.0) Calcium (8.4-10.2) mg/dL Total Bilirubin (0.2-1.3) mg/dL AST (14-36) U/L ALT (0-35) U/L Alkaline Phosphatase (38-126) U/L Troponin I 0.056 H* (0.000-0.034) ng/mL Serum Total Protein (6.3-8.2) g/dL Albumin (3.5-5.0) g/dL Urine Color (Yellow) Urine Appearance (Clear) Urine pH (4.6-8.0) Ur Specific [place] (1.005-1.030) Urine Protein (Negative) Urine Glucose (UA) (Negative) mg/dL Urine Ketones (Negative) Urine Blood (Negative) Urine Nitrite (Negative) Urine Bilirubin (Negative) Urine Urobilinogen (0.2) mg/dL Ur Leukocyte Esterase (Negative) U Hyaline Cast (Auto) (0-2) /LPF Urine Microscopic RBC (0-5) /HPF Urine Microscopic WBC (0-5) /HPF Ur Epithelial Cells (None Seen) /HPF Urine Bacteria (None Seen) /HPF Urine Culture Reflexed (NO) Urine Opiates Level POSITIVE (NEGATIVE) Ur Methadone NEGATIVE (NEGATIVE) Urine Barbiturates NEGATIVE (NEGATIVE) Ur Phencyclidine (PCP) NEGATIVE (NEGATIVE) Urine Amphetamine NEGATIVE (NEGATIVE) U Benzodiazepine Level NEGATIVE (NEGATIVE) Urine Cocaine NEGATIVE (NEGATIVE) Urine Marijuana (THC) NEGATIVE (NEGATIVE) Slides for Path Review 12/27/22 12/27/22 12/28/22 Range/Units 19:59 20:35 00:16 WBC (4.0-10.5) x10^3/uL RBC (4.1-5.4) x10^6/uL Hgb (12.0-16.0) g/dL Hct (35-47) % MCV (78-100) fL MCH (26-32) pg MCHC (32-36) g/dL RDW (11.5-14.0) % Plt Count (150-450) x10^3/uL MPV (7.5-11.0) fL Gran % (36.0-66.0) % Immature Gran % (Auto) (0.00-0.4) % Nucleat RBC Rel Count (0.00-0.1) % Eos # (Auto) (0-0.5) x10^3/uL Immature Gran # (Auto) (0.00-0.03) x10^3u/L Absolute Lymphs (auto) (1.0-4.6) x10^3/uL Absolute Monos (auto) (0.0-1.3) x10^3/uL Absolute Nucleated RBC (0.00-0.01) x10^3u/L Lymphocytes % (24.0-44.0) % Monocytes % (0.0-12.0) % Eosinophils % (0.00-5.0) % Basophils % (0.0-0.4) % Absolute Granulocytes (1.4-6.9) x10^3/uL Basophils # (0-0.4) x10^3/uL Puncture Site pCO2 (35-45) mmHg pO2 (75-100) mmHg Base Excess (-2.0-2.0) O2 Saturation (94-100) g/dF ABG pH (7.35-7.45) ABG HCO3 (22-28) ABG O2 Sat (Measured) (95-100) % Azael Test A-a Gradient a/A Ratio Hemoglobin Carboxyhemoglobin (0.0-6.9) % THgb Methemoglobin (1.4-1.5) % Potassium (3.5-5.1) Temperature C POC O2 Flow Rate % Sodium (137-145) mmol/L Chloride (98-107) mmol/L Carbon Dioxide (22-30) mmol/L Anion Gap (5-15) MEQ/L BUN (7-17) mg/dL Creatinine (0.52-1.04) mg/dL Estimated GFR ML/MIN Glucose (74-106) mg/dL POC Glucometer 67 L 132 H 92 (74 to 106) mg/dL Lactic Acid (0.4-2.0) Calcium (8.4-10.2) mg/dL Total Bilirubin (0.2-1.3) mg/dL AST (14-36) U/L ALT (0-35) U/L Alkaline Phosphatase (38-126) U/L Troponin I (0.000-0.034) ng/mL Serum Total Protein (6.3-8.2) g/dL Albumin (3.5-5.0) g/dL Urine Color (Yellow) Urine Appearance (Clear) Urine pH (4.6-8.0) Ur Specific [place] (1.005-1.030) Urine Protein (Negative) Urine Glucose (UA) (Negative) mg/dL Urine Ketones (Negative) Urine Blood (Negative) Urine Nitrite (Negative) Urine Bilirubin (Negative) Urine Urobilinogen (0.2) mg/dL Ur Leukocyte Esterase (Negative) U Hyaline Cast (Auto) (0-2) /LPF Urine Microscopic RBC (0-5) /HPF Urine Microscopic WBC (0-5) /HPF Ur Epithelial Cells (None Seen) /HPF Urine Bacteria (None Seen) /HPF Urine Culture Reflexed (NO) Urine Opiates Level (NEGATIVE) Ur Methadone (NEGATIVE) Urine Barbiturates (NEGATIVE) Ur Phencyclidine (PCP) (NEGATIVE) Urine Amphetamine (NEGATIVE) U Benzodiazepine Level (NEGATIVE) Urine Cocaine (NEGATIVE) Urine Marijuana (THC) (NEGATIVE) Slides for Path Review 12/28/22 12/28/22 12/28/22 Range/Units 03:50 03:50 03:50 WBC 9.9 (4.0-10.5) x10^3/uL RBC 3.58 L (4.1-5.4) x10^6/uL Hgb 10.6 L (12.0-16.0) g/dL Hct 35.3 (35-47) % MCV 98.6 D (78-100) fL MCH 29.6 (26-32) pg MCHC 30.0 L (32-36) g/dL RDW 15.2 H (11.5-14.0) % Plt Count 223 (150-450) x10^3/uL MPV 11.6 H (7.5-11.0) fL Gran % 74.8 H (36.0-66.0) % Immature Gran % (Auto) 0.3 (0.00-0.4) % Nucleat RBC Rel Count 0.0 (0.00-0.1) % Eos # (Auto) 0.01 (0-0.5) x10^3/uL Immature Gran # (Auto) 0.03 (0.00-0.03) x10^3u/L Absolute Lymphs (auto) 1.67 (1.0-4.6) x10^3/uL Absolute Monos (auto) 0.74 (0.0-1.3) x10^3/uL Absolute Nucleated RBC 0.00 (0.00-0.01) x10^3u/L Lymphocytes % 16.9 L (24.0-44.0) % Monocytes % 7.5 (0.0-12.0) % Eosinophils % 0.1 (0.00-5.0) % Basophils % 0.4 (0.0-0.4) % Absolute Granulocytes 7.40 H (1.4-6.9) x10^3/uL Basophils # 0.04 (0-0.4) x10^3/uL Puncture Site LEFT RADIAL pCO2 47 H (35-45) mmHg pO2 61 L (75-100) mmHg Base Excess 4.4 H (-2.0-2.0) O2 Saturation 90.2 L (94-100) g/dF ABG pH 7.41 (7.35-7.45) ABG HCO3 29.8 H* (22-28) ABG O2 Sat (Measured) 93.6 L (95-100) % Azael Test YES A-a Gradient 80 a/A Ratio 0.43 Hemoglobin 11.4 Carboxyhemoglobin 2.7 (0.0-6.9) % THgb Methemoglobin 0.9 L (1.4-1.5) % Potassium 4.3 4.4 D (3.5-5.1) Temperature 37.0 C POC O2 Flow Rate 28 % Sodium 141 (137-145) mmol/L Chloride 107 (98-107) mmol/L Carbon Dioxide 30 (22-30) mmol/L Anion Gap 8.4 (5-15) MEQ/L BUN 18 H (7-17) mg/dL Creatinine 1.01 (0.52-1.04) mg/dL Estimated GFR 56.8 ML/MIN Glucose 107 H (74-106) mg/dL POC Glucometer (74 to 106) mg/dL Lactic Acid 0.5 (0.4-2.0) Calcium 8.3 L (8.4-10.2) mg/dL Total Bilirubin 0.40 (0.2-1.3) mg/dL AST 19 (14-36) U/L ALT 12 (0-35) U/L Alkaline Phosphatase 69 (38-126) U/L Troponin I (0.000-0.034) ng/mL Serum Total Protein 5.9 L (6.3-8.2) g/dL Albumin 3.4 L (3.5-5.0) g/dL Urine Color (Yellow) Urine Appearance (Clear) Urine pH (4.6-8.0) Ur Specific [place] (1.005-1.030) Urine Protein (Negative) Urine Glucose (UA) (Negative) mg/dL Urine Ketones (Negative) Urine Blood (Negative) Urine Nitrite (Negative) Urine Bilirubin (Negative) Urine Urobilinogen (0.2) mg/dL Ur Leukocyte Esterase (Negative) U Hyaline Cast (Auto) (0-2) /LPF Urine Microscopic RBC (0-5) /HPF Urine Microscopic WBC (0-5) /HPF Ur Epithelial Cells (None Seen) /HPF Urine Bacteria (None Seen) /HPF Urine Culture Reflexed (NO) Urine Opiates Level (NEGATIVE) Ur Methadone (NEGATIVE) Urine Barbiturates (NEGATIVE) Ur Phencyclidine (PCP) (NEGATIVE) Urine Amphetamine (NEGATIVE) U Benzodiazepine Level (NEGATIVE) Urine Cocaine (NEGATIVE) Urine Marijuana (THC) (NEGATIVE) Slides for Path Review 12/28/22 12/28/22 12/28/22 Range/Units 03:52 09:40 11:22 WBC (4.0-10.5) x10^3/uL RBC (4.1-5.4) x10^6/uL Hgb (12.0-16.0) g/dL Hct (35-47) % MCV (78-100) fL MCH (26-32) pg MCHC (32-36) g/dL RDW (11.5-14.0) % Plt Count (150-450) x10^3/uL MPV (7.5-11.0) fL Gran % (36.0-66.0) % Immature Gran % (Auto) (0.00-0.4) % Nucleat RBC Rel Count (0.00-0.1) % Eos # (Auto) (0-0.5) x10^3/uL Immature Gran # (Auto) (0.00-0.03) x10^3u/L Absolute Lymphs (auto) (1.0-4.6) x10^3/uL Absolute Monos (auto) (0.0-1.3) x10^3/uL Absolute Nucleated RBC (0.00-0.01) x10^3u/L Lymphocytes % (24.0-44.0) % Monocytes % (0.0-12.0) % Eosinophils % (0.00-5.0) % Basophils % (0.0-0.4) % Absolute Granulocytes (1.4-6.9) x10^3/uL Basophils # (0-0.4) x10^3/uL Puncture Site pCO2 (35-45) mmHg pO2 (75-100) mmHg Base Excess (-2.0-2.0) O2 Saturation (94-100) g/dF ABG pH (7.35-7.45) ABG HCO3 (22-28) ABG O2 Sat (Measured) (95-100) % Azael Test A-a Gradient a/A Ratio Hemoglobin Carboxyhemoglobin (0.0-6.9) % THgb Methemoglobin (1.4-1.5) % Potassium (3.5-5.1) Temperature C POC O2 Flow Rate % Sodium (137-145) mmol/L Chloride (98-107) mmol/L Carbon Dioxide (22-30) mmol/L Anion Gap (5-15) MEQ/L BUN (7-17) mg/dL Creatinine (0.52-1.04) mg/dL Estimated GFR ML/MIN Glucose (74-106) mg/dL POC Glucometer 91 101 125 H (74 to 106) mg/dL Lactic Acid (0.4-2.0) Calcium (8.4-10.2) mg/dL Total Bilirubin (0.2-1.3) mg/dL AST (14-36) U/L ALT (0-35) U/L Alkaline Phosphatase (38-126) U/L Troponin I (0.000-0.034) ng/mL Serum Total Protein (6.3-8.2) g/dL Albumin (3.5-5.0) g/dL Urine Color (Yellow) Urine Appearance (Clear) Urine pH (4.6-8.0) Ur Specific [place] (1.005-1.030) Urine Protein (Negative) Urine Glucose (UA) (Negative) mg/dL Urine Ketones (Negative) Urine Blood (Negative) Urine Nitrite (Negative) Urine Bilirubin (Negative) Urine Urobilinogen (0.2) mg/dL Ur Leukocyte Esterase (Negative) U Hyaline Cast (Auto) (0-2) /LPF Urine Microscopic RBC (0-5) /HPF Urine Microscopic WBC (0-5) /HPF Ur Epithelial Cells (None Seen) /HPF Urine Bacteria (None Seen) /HPF Urine Culture Reflexed (NO) Urine Opiates Level (NEGATIVE) Ur Methadone (NEGATIVE) Urine Barbiturates (NEGATIVE) Ur Phencyclidine (PCP) (NEGATIVE) Urine Amphetamine (NEGATIVE) U Benzodiazepine Level (NEGATIVE) Urine Cocaine (NEGATIVE) Urine Marijuana (THC) (NEGATIVE) Slides for Path Review Microbiology 12/27/22 14:58 Urine Culture - Preliminary Clean Catch Midstream NO GROWTH TO DATE Accuchecks Date 12/28/22 Date 12/28/22 Date 12/28/22 Date 12/28/22 Time 11:26 Time 09:41 Time 00:17 Time 00:17 - Radiology Impressions Radiology Exams & Impressions: Radiology Procedures Category Date Time Status ABDOMEN AND PELVIS W/0 CONTRAS [CT] Stat Exams 12/27/22 13:27 Completed CERVICAL SPINE WO CONTRAST [CT] Stat Exams 12/27/22 13:07 Completed CHEST WITHOUT CONTRAST [CT] Stat Exams 12/27/22 13:27 Completed HEAD WITHOUT CONTRAST [CT] Stat Exams 12/27/22 11:44 Completed - Other Procedures and Tests Respiratory Therapy 12/27/22 17:42 Oxygen Nasal Cannula 4 lpm Assessment/Plan (1) Drug overdose Current Visit: Yes Status: Acute Qualifiers: Encounter type: initial encounter Injury intent: accidental or unintentional Qualified Code(s): T50.901A - Poisoning by unspecified drugs, medicaments and biological substances, accidental (unintentional), initial encounter Assessment & Plan: Pt has never voiced any wish to self harm. Code(s): T50.901A - POISONING BY UNSP DRUG/MEDS/BIOL SUBST, ACCIDENTAL, INIT (2) COPD exacerbation Current Visit: Yes Status: Acute Assessment & Plan: adding steroid. Code(s): J44.1 - CHRONIC OBSTRUCTIVE PULMONARY DISEASE W (ACUTE) EXACERBATION (3) Altered level of consciousness Current Visit: Yes Status: Acute Assessment & Plan: much improved. Did not require O2 once she was more alert. Code(s): R40.4 - TRANSIENT ALTERATION OF AWARENESS (4) Elevated troponin Current Visit: Yes Status: Acute Code(s): R77.8 - OTHER SPECIFIED ABNORMALITIES OF PLASMA PROTEINS (5) Hyperkalemia Current Visit: Yes Status: Resolved Code(s): E87.5 - HYPERKALEMIA
[2022-12-28] MEDS ORDERED: NON-FORMULARY ITEM (Pravastatin Sodium [Pravastatin Sodium] 40 MG Tablet) PO SCH (22:00)
[2022-12-28] MEDS: ENOXAPARIN SODIUM SQ SCH (22:39)
[2022-12-28] MEDS: ZOCOR 20MG PO SCH (22:39)
[2022-12-29] MEDS: Dextrose 5%-NS IV Solution 1000 ML 1,000 ML IV SCH ×2 (07:23→13:42)
[2022-12-29 07:28] LABS: BASOPHIL % 0.2 % (0.0-0.4); Basophil (Absolute #) 0.01 x10^3/uL (0-0.4); Eosinophil (Absolute #) 0 x10^3/uL (0-0.5); Hematocrit 34.6 % (35-47); Hemoglobin 10.5 g/dL (12.0-16.0); IMMATURE GRAN # 0.01 x10^3u/L (0.00-0.03); IMMATURE GRAN % 0.2 % (0.00-0.4); Lymphocyte (Absolute #) 0.52 x10^3/uL (1.0-4.6); Lymphocytes % 10.3 % (24.0-44.0); Mean Cell Volume 97.5 fL (78-100); Mean Corpuscular Hemoglobin 29.6 pg (26-32); Mean Corpuscular Hgb Concent. 30.3 g/dL (32-36); Mean Platelet Volume 11.4 fL (7.5-11.0); Monocyte (Absolute #) 0.09 x10^3/uL (0.0-1.3); Monocytes % 1.8 % (0.0-12.0); Neutrophil % 87.5 % (36.0-66.0); Platelet Count 207 x10^3/uL (150-450); Red Blood Count 3.55 x10^6/uL (4.1-5.4); Red Cell Distribution Width 14.8 % (11.5-14.0)
[2022-12-29 07:49] LABS: ALBUMIN 3.4 g/dL (3.5-5.0); ALKALINE PHOSPHATASE 60 U/L (38-126); ANION GAP 8.3 MEQ/L (5-15); BLOOD UREA NITROGEN 15 mg/dL (7-17); CHLORIDE 102 mmol/L (98-107); Calcium 8.4 mg/dL (8.4-10.2); Carbon Dioxide 29 mmol/L (22-30); Creatinine 1 0.92 mg/dL (0.52-1.04); EST GLOMERULAR FILTRATION RATE > 60.0 ML/MIN; Glucose 153 mg/dL (74-106); Potassium 4.7 mmol/L (3.5-5.1); SGOT/AST 15 U/L (14-36); SGPT/ALT 13 U/L (0-35); SODIUM 134 mmol/L (137-145); Total Protein 6.1 g/dL (6.3-8.2)
[2022-12-29 09:04] LABS: Slide Review 1 YES
[2022-12-29] MEDS: solu-MEDROL 60 MG, Sterile H2O 10 ml 2 ML IV SCH ×6 (09:04→21:28)
[2022-12-29] MEDS: Acidophilus TABLET PO SCH ×2 (09:04→21:28)
[2022-12-29] MEDS: Neurontin PO SCH ×3 (09:04→21:28)
[2022-12-29] MEDS: PROTONIX 40 MG IV IV SCH (09:04)
[2022-12-29] MEDS: ROCEPHIN 1 Gm-D5w 50 ml Bag** 1 G/50 ML IVPB IV SCH (09:04)
[2022-12-29] MEDS: Maxzide-25MG Tablet PO SCH (09:04)
[2022-12-29] MEDS: ECOTRIN 81 MG PO SCH (09:05)
[2022-12-29] MEDS: Vitamin B-12 500 MCG PO SCH (09:05)
[2022-12-29] MEDS: LASIX 20 MG PO SCH (09:05)
[2022-12-29] MEDS: COREG 12.5 MG PO SCH ×2 (09:05→21:28)
[2022-12-29] MEDS: PLAVIX Tablet PO SCH (09:05)
[2022-12-29] MEDS: Nicoderm CQ 21 MG TOP SCH (09:05)
[2022-12-29] MEDS: NORVASC 5 MG PO SCH (09:05)
[2022-12-29] MEDS: CLONIDINE 0.1 MG TABLET PO SCH ×2 (09:05→21:28)
--- NOTE | 2022-12-29 13:12 | PCM.NOTE ---
Date and Time: 12/29/22 1309 Subjective Assessment: Pt has been grouchy toward staff today. Tray CLD fine and would like to increase her diet. - Review of Systems Constitutional: No Fever Respiratory: Cough, Short Of Breath Objective Exam General Appearance: no apparent distress, alert Neurologic Exam: oriented x 3, cooperative Skin Exam: normal color, warm, dry, No rash Wound Assessment: Skin/Wound Assessment Wound/Incision Assessment Start: 12/27/22 23:18 Text: Status: Active Freq: Q6H Protocol: Document 12/29/22 11:00 ZAYRA (Rec: 12/29/22 11:12 ZAYRA [id number]) Wound Photo Photo Taken Yes Date: 12/27/22 Time: 19:45 Eye Exam: eyes nml inspection Ears, Nose, Throat Exam: moist mucous membranes Neck Exam: normal inspection Respiratory Exam: diminished breath sounds (fair to good air exchange), wheezing (throughout), No crackles/rales, No rhonchi Cardiovascular Exam: regular rate/rhythm, normal heart sounds, No murmur Gastrointestinal/Abdomen Exam: soft, normal bowel sounds, No tenderness, No distention, No mass, No guarding, No rebound Extremity Exam: normal inspection, No pedal edema, No swelling Back Exam: normal inspection, No rash OBJECTIVE DATA Vital Signs: Vital Signs - 24 hr Temp Pulse Resp BP BP Pulse Ox 12/29/22 11:33 97.2 F 71 20 129/56 94 L 12/29/22 08:00 77 129/85 12/29/22 04:00 98.4 F 68 18 131/63 93 L 12/28/22 23:57 97.2 F 75 20 105/44 90 L 12/28/22 22:02 100 F 77 14 129/53 96 12/28/22 19:37 100.0 F 85 18 162/84 98 12/28/22 19:31 95 12/28/22 16:00 99.5 F 74 13 96 Pain Assessment - Last Documented Pain Intensity 0 Pain Scale Used 0-10 Pain Scale Intake and Output: Intake & Output 12/27/22 12/28/22 12/29/22 12/30/22 11:59 11:59 11:59 11:59 Intake Total 0 2962 Output Total 3700 2300 Balance -3700 662 Weight 65.9 kg Lab Results: Lab Results-Last 24 Hours 12/28/22 12/28/22 12/29/22 Range/Units 16:16 19:53 07:14 WBC 5.0 (4.0-10.5) x10^3/uL RBC 3.55 L (4.1-5.4) x10^6/uL Hgb 10.5 L (12.0-16.0) g/dL Hct 34.6 L (35-47) % MCV 97.5 (78-100) fL MCH 29.6 (26-32) pg MCHC 30.3 L (32-36) g/dL RDW 14.8 H (11.5-14.0) % Plt Count 207 (150-450) x10^3/uL MPV 11.4 H (7.5-11.0) fL Gran % 87.5 H (36.0-66.0) % Immature Gran % (Auto) 0.2 (0.00-0.4) % Nucleat RBC Rel Count 0.0 (0.00-0.1) % Eos # (Auto) 0 (0-0.5) x10^3/uL Immature Gran # (Auto) 0.01 (0.00-0.03) x10^3u/L Absolute Lymphs (auto) 0.52 L (1.0-4.6) x10^3/uL Absolute Monos (auto) 0.09 (0.0-1.3) x10^3/uL Absolute Nucleated RBC 0.00 (0.00-0.01) x10^3u/L Lymphocytes % 10.3 L (24.0-44.0) % Monocytes % 1.8 (0.0-12.0) % Eosinophils % 0.0 (0.00-5.0) % Basophils % 0.2 (0.0-0.4) % Absolute Granulocytes 4.40 (1.4-6.9) x10^3/uL Basophils # 0.01 (0-0.4) x10^3/uL Sodium (137-145) mmol/L Potassium (3.5-5.1) mmol/L Chloride (98-107) mmol/L Carbon Dioxide (22-30) mmol/L Anion Gap (5-15) MEQ/L BUN (7-17) mg/dL Creatinine (0.52-1.04) mg/dL Estimated GFR ML/MIN Glucose (74-106) mg/dL POC Glucometer 153 H 129 H (74 to 106) mg/dL Calcium (8.4-10.2) mg/dL Total Bilirubin (0.2-1.3) mg/dL AST (14-36) U/L ALT (0-35) U/L Alkaline Phosphatase (38-126) U/L Serum Total Protein (6.3-8.2) g/dL Albumin (3.5-5.0) g/dL Slides for Path Review YES 12/29/22 12/29/22 12/29/22 Range/Units 07:14 08:00 11:10 WBC (4.0-10.5) x10^3/uL RBC (4.1-5.4) x10^6/uL Hgb (12.0-16.0) g/dL Hct (35-47) % MCV (78-100) fL MCH (26-32) pg MCHC (32-36) g/dL RDW (11.5-14.0) % Plt Count (150-450) x10^3/uL MPV (7.5-11.0) fL Gran % (36.0-66.0) % Immature Gran % (Auto) (0.00-0.4) % Nucleat RBC Rel Count (0.00-0.1) % Eos # (Auto) (0-0.5) x10^3/uL Immature Gran # (Auto) (0.00-0.03) x10^3u/L Absolute Lymphs (auto) (1.0-4.6) x10^3/uL Absolute Monos (auto) (0.0-1.3) x10^3/uL Absolute Nucleated RBC (0.00-0.01) x10^3u/L Lymphocytes % (24.0-44.0) % Monocytes % (0.0-12.0) % Eosinophils % (0.00-5.0) % Basophils % (0.0-0.4) % Absolute Granulocytes (1.4-6.9) x10^3/uL Basophils # (0-0.4) x10^3/uL Sodium 134 L (137-145) mmol/L Potassium 4.7 (3.5-5.1) mmol/L Chloride 102 (98-107) mmol/L Carbon Dioxide 29 (22-30) mmol/L Anion Gap 8.3 (5-15) MEQ/L BUN 15 (7-17) mg/dL Creatinine 0.92 (0.52-1.04) mg/dL Estimated GFR > 60.0 ML/MIN Glucose 153 H (74-106) mg/dL POC Glucometer 123 H 202 H (74 to 106) mg/dL Calcium 8.4 (8.4-10.2) mg/dL Total Bilirubin 0.40 (0.2-1.3) mg/dL AST 15 (14-36) U/L ALT 13 (0-35) U/L Alkaline Phosphatase 60 (38-126) U/L Serum Total Protein 6.1 L (6.3-8.2) g/dL Albumin 3.4 L (3.5-5.0) g/dL Slides for Path Review Radiology Exams: Radiology Procedures Category Date Time Status ABDOMEN AND PELVIS W/0 CONTRAS [CT] Stat Exams 12/27/22 13:27 Completed CERVICAL SPINE WO CONTRAST [CT] Stat Exams 12/27/22 13:07 Completed CHEST WITHOUT CONTRAST [CT] Stat Exams 12/27/22 13:27 Completed Multi-Disciplinary Progress Notes: Multi-Disciplinary Progress Notes 12/29/22 11:27 Case Management Note by Abimbola Shell HAS DECLINED ADMIT Initialized on 12/29/22 11:27 - END OF NOTE 12/29/22 08:55 Case Management Note by Abimbola Shell STATED THEY DID NOT GET REFERRAL YEST- REFERRAL UPDATED AND REFAXED THIS AM Initialized on 12/29/22 08:55 - END OF NOTE 12/28/22 14:45 Case Management Note by Abimbola Shell PATIENT AGREEBLE TO REHAB RECOMMENDED BY PHYSICAL THERAPY. SHE WOULD LIKE REFERRAL SENT TO [facility]. REFERRAL FAXED AT THIS TIME Initialized on 12/28/22 14:45 - END OF NOTE Assessment/Plan (1) Drug overdose Current Visit: Yes Status: Acute Qualifiers: Encounter type: initial encounter Injury intent: accidental or unintentional Qualified Code(s): T50.901A - Poisoning by unspecified drugs, medicaments and biological substances, accidental (unintentional), initial encounter Assessment & Plan: She tells me this morning that she would never intentionally overdose. no suicidal ideation. Code(s): T50.901A - POISONING BY UNSP DRUG/MEDS/BIOL SUBST, ACCIDENTAL, INIT (2) COPD exacerbation Current Visit: Yes Status: Acute Assessment & Plan: On Rocephin IV. Increased wheezing today - increase steroid from 40 mg IV q12 to 60mg q8h. Code(s): J44.1 - CHRONIC OBSTRUCTIVE PULMONARY DISEASE W (ACUTE) EXACERBATION (3) Altered level of consciousness Current Visit: Yes Status: Resolved Code(s): R40.4 - TRANSIENT ALTERATION OF AWARENESS (4) Muscular deconditioning Current Visit: Yes Status: Acute Assessment & Plan: Will go to rehab; approval at [facility] is pending. Code(s): R29.898 - OTH SYMPTOMS AND SIGNS INVOLVING THE MUSCULOSKELETAL SYSTEM (5) UTI (urinary tract infection) Current Visit: No Status: Acute Qualifiers: Urinary tract infection type: acute cystitis Hematuria presence: without hematuria Qualified Code(s): N30.00 - Acute cystitis without hematuria Assessment & Plan: gram neg, ID & Sens pending. Code(s): N39.0 - URINARY TRACT INFECTION, SITE NOT SPECIFIED
[2022-12-29] MEDS ORDERED: solu-MEDROL ONE (13:41)
[2022-12-29] MEDS ORDERED: solu-MEDROL 60 MG, Sterile H2O 10 ml 1 ML IV SCH ×2 (14:00)
[2022-12-29] MEDS: ZOCOR 20MG PO SCH (21:28)
[2022-12-29] MEDS: ENOXAPARIN SODIUM SQ SCH (21:29)
[2022-12-30] MEDS: Dextrose 5%-NS IV Solution 1000 ML 1,000 ML IV SCH ×2 (01:52→08:30)
[2022-12-30 05:13] LABS: Absolute Neutrophil Ct (ANC) 4.76 x10^3/uL (1.4-6.9); Basophil (Absolute #) 0 x10^3/uL (0-0.4); Eosinophil (Absolute #) 0 x10^3/uL (0-0.5); Hematocrit 34.8 % (35-47); Hemoglobin 10.6 g/dL (12.0-16.0); IMMATURE GRAN # 0.02 x10^3u/L (0.00-0.03); IMMATURE GRAN % 0.3 % (0.00-0.4); Lymphocytes % 8.7 % (24.0-44.0); Mean Cell Volume 95.6 fL (78-100); Mean Corpuscular Hemoglobin 29.1 pg (26-32); Mean Corpuscular Hgb Concent. 30.5 g/dL (32-36); Mean Platelet Volume 11.9 fL (7.5-11.0); Monocyte (Absolute #) 0.44 x10^3/uL (0.0-1.3); Monocytes % 7.7 % (0.0-12.0); Neutrophil % 83.3 % (36.0-66.0); Platelet Count 217 x10^3/uL (150-450); Red Blood Count 3.64 x10^6/uL (4.1-5.4); White Blood Count 5.7 x10^3/uL (4.0-10.5)
[2022-12-30] MEDS: solu-MEDROL 60 MG, Sterile H2O 10 ml 2 ML IV SCH ×6 (05:23→21:17)
[2022-12-30 06:21] LABS: ALBUMIN 3.3 g/dL (3.5-5.0); ANION GAP 10.2 MEQ/L (5-15); BILIRUBIN,TOTAL 0.4 mg/dL (0.2-1.3); Calcium 8.3 mg/dL (8.4-10.2); Creatinine 1 1.21 mg/dL (0.52-1.04); EST GLOMERULAR FILTRATION RATE 46.1 ML/MIN; Potassium 4.1 mmol/L (3.5-5.1); Total Protein 6.2 g/dL (6.3-8.2)
[2022-12-30 07:18] LABS: Slide Review 1 YES
[2022-12-30] MEDS ORDERED: APRESOLINE 20 MG/ML INJ IV PRN (08:06)
[2022-12-30] MEDS: Nicoderm CQ 21 MG TOP SCH (08:24)
[2022-12-30] MEDS: ROCEPHIN 1 Gm-D5w 50 ml Bag** 1 G/50 ML IVPB IV SCH (08:24)
[2022-12-30] MEDS: CLONIDINE 0.1 MG TABLET PO SCH ×2 (08:25→21:17)
[2022-12-30] MEDS: LASIX 20 MG PO SCH (08:25)
[2022-12-30] MEDS: PLAVIX Tablet PO SCH (08:25)
[2022-12-30] MEDS: Acidophilus TABLET PO SCH ×2 (08:25→21:17)
[2022-12-30] MEDS: Maxzide-25MG Tablet PO SCH (08:25)
[2022-12-30] MEDS: Neurontin PO SCH ×3 (08:25→21:16)
[2022-12-30] MEDS: Vitamin B-12 500 MCG PO SCH (08:26)
[2022-12-30] MEDS: COREG 12.5 MG PO SCH ×2 (08:26→21:17)
[2022-12-30] MEDS: NORVASC 5 MG PO SCH (08:26)
[2022-12-30] MEDS: PROTONIX 40 MG IV IV SCH (08:26)
[2022-12-30] MEDS: ECOTRIN 81 MG PO SCH (08:31)
[2022-12-30] MEDS ORDERED: Levofloxacin 500MG/100ML D5W 500 MG/100 ML BAG IV SCH (12:00)
[2022-12-30] MEDS ORDERED: solu-MEDROL ONE (13:31)
[2022-12-30] MEDS: ENOXAPARIN SODIUM SQ SCH (21:16)
[2022-12-30] MEDS: ZOCOR 20MG PO SCH (21:16)
[2022-12-30] MEDS: Requip 0.5 MG PO PRN (21:19)
--- NOTE | 2022-12-30 21:29 | PCM.NOTE ---
Date and Time: 12/30/222124 Subjective Assessment: Pt feels great! Her legs are tender however. Tray po. - Review of Systems Constitutional: No Fever Abdominal/Gastrointestinal: No Vomiting Objective Exam General Appearance: no apparent distress, alert Neurologic Exam: oriented x 3, cooperative Skin Exam: normal color, warm, dry, No rash Wound Assessment: Skin/Wound Assessment Wound/Incision Assessment Start: 12/27/22 23:18 Text: Status: Active Freq: Q6H Protocol: Document 12/30/22 17:00 ZAYRA (Rec: 12/30/22 17:14 ZAYRA [id number]) Wound/Incision Assessment Left Buttock Wound Stage Stage II Dressing Status Changed Drainage Amount None Length (cm) (cm) 3 Width (cm) (cm) 1 Wound Bed Greatest Portion Pale [place] Wound Bed Lesser Portion Red (Granulation) Primary Dressing mepilex Wound Photo Photo Taken Yes Date: 12/27/22 Time: 19:45 Ears, Nose, Throat Exam: moist mucous membranes Neck Exam: normal inspection Respiratory Exam: diminished breath sounds (good air exchane), No crackles/rales, No rhonchi, No wheezing Cardiovascular Exam: regular rate/rhythm, normal heart sounds, No murmur Gastrointestinal/Abdomen Exam: soft, normal bowel sounds, No tenderness, No distention, No mass, No guarding, No rebound Extremity Exam: tenderness, other (chronic venous stasis change.), No pedal edema, No swelling Back Exam: normal inspection, No rash OBJECTIVE DATA Vital Signs: Vital Signs - 24 hr Temp Pulse Resp BP Pulse Ox 12/30/22 20:00 98.3 F 83 15 149/62 93 L 12/30/22 17:50 90 L 12/30/22 16:00 94 L 12/30/22 11:00 98.6 F 71 16 147/61 94 L 12/30/22 07:35 98.6 F 73 17 187/77 96 12/30/22 07:25 91 L 12/30/22 04:00 98.8 F 77 15 154/68 95 12/30/22 00:00 98.6 F 82 18 157/68 96 Pain Assessment - Last Documented Pain Intensity 0 Pain Scale Used 0-10 Pain Scale Intake and Output: Intake & Output 12/28/22 12/29/22 12/30/22 12/31/22 11:59 11:59 11:59 11:59 Intake Total 0 2962 1080 Output Total 3700 2300 2300 600 Balance -3700 072 -1280 600 Lab Results: Lab Results-Last 24 Hours 12/30/22 12/30/22 Range/Units 05:12 05:12 WBC 5.7 (4.0-10.5) x10^3/uL RBC 3.64 L (4.1-5.4) x10^6/uL Hgb 10.6 L (12.0-16.0) g/dL Hct 34.8 L (35-47) % MCV 95.6 (78-100) fL MCH 29.1 (26-32) pg MCHC 30.5 L (32-36) g/dL RDW 15.0 H (11.5-14.0) % Plt Count 217 (150-450) x10^3/uL MPV 11.9 H (7.5-11.0) fL Gran % 83.3 H (36.0-66.0) % Immature Gran % (Auto) 0.3 (0.00-0.4) % Nucleat RBC Rel Count 0.0 (0.00-0.1) % Eos # (Auto) 0 (0-0.5) x10^3/uL Immature Gran # (Auto) 0.02 (0.00-0.03) x10^3u/L Absolute Lymphs (auto) 0.50 L (1.0-4.6) x10^3/uL Absolute Monos (auto) 0.44 (0.0-1.3) x10^3/uL Absolute Nucleated RBC 0.00 (0.00-0.01) x10^3u/L Lymphocytes % 8.7 L (24.0-44.0) % Monocytes % 7.7 (0.0-12.0) % Eosinophils % 0.0 (0.00-5.0) % Basophils % 0.0 (0.0-0.4) % Absolute Granulocytes 4.76 (1.4-6.9) x10^3/uL Basophils # 0 (0-0.4) x10^3/uL Sodium 137 (137-145) mmol/L Potassium 4.1 (3.5-5.1) mmol/L Chloride 102 (98-107) mmol/L Carbon Dioxide 29 (22-30) mmol/L Anion Gap 10.2 (5-15) MEQ/L BUN 33 H (7-17) mg/dL Creatinine 1.21 H (0.52-1.04) mg/dL Estimated GFR 46.1 ML/MIN Glucose 137 H (74-106) mg/dL Calcium 8.3 L (8.4-10.2) mg/dL Total Bilirubin 0.40 (0.2-1.3) mg/dL AST 15 (14-36) U/L ALT 12 (0-35) U/L Alkaline Phosphatase 70 (38-126) U/L Serum Total Protein 6.2 L (6.3-8.2) g/dL Albumin 3.3 L (3.5-5.0) g/dL Slides for Path Review YES Multi-Disciplinary Progress Notes: Multi-Disciplinary Progress Notes 12/30/22 16:19 Case Management Note by Abimbola Shell HAS RECEIVED APPROVAL AND IS READY FOR PATIENT BUT D/T AN EVENING ADMIT- PATIENT WILL NOT GET ANY OF HER MEDICATIONS THIS EVENING AND THEY DO NOT HAVE TRANSPORT FOR PATIENT. WILL PLAN TO SEND PATIENT IN THE AM Initialized on 12/30/22 16:19 - END OF NOTE 12/30/22 13:25 Case Management Note by Abimbola Shell S/W [facility] STILL PENDING AT THIS TIME Initialized on 12/30/22 13:25 - END OF NOTE Assessment/Plan (1) Drug overdose Current Visit: Yes Status: Acute Qualifiers: Encounter type: initial encounter Injury intent: accidental or unintentional Qualified Code(s): T50.901A - Poisoning by unspecified drugs, medicaments and biological substances, accidental (unintentional), initial encounter Code(s): T50.901A - POISONING BY UNSP DRUG/MEDS/BIOL SUBST, ACCIDENTAL, INIT (2) COPD exacerbation Current Visit: Yes Status: Acute Assessment & Plan: steroid 60mg IV q8h. Tomorrow will change to po prednisone. Code(s): J44.1 - CHRONIC OBSTRUCTIVE PULMONARY DISEASE W (ACUTE) EXACERBATION (3) Altered level of consciousness Current Visit: Yes Status: Resolved Code(s): R40.4 - TRANSIENT ALTERATION OF AWARENESS (4) Muscular deconditioning Current Visit: Yes Status: Acute Code(s): R29.898 - OTH SYMPTOMS AND SIGNS INVOLVING THE MUSCULOSKELETAL SYSTEM (5) UTI (urinary tract infection) Current Visit: No Status: Acute Qualifiers: Urinary tract infection type: acute cystitis Hematuria presence: without hematuria Qualified Code(s): N30.00 - Acute cystitis without hematuria Assessment & Plan: pseudomonas, low colony count, but will change antibiotic to levaquin. Code(s): N39.0 - URINARY TRACT INFECTION, SITE NOT SPECIFIED
[2022-12-31 05:07] LABS: Basophil (Absolute #) 0 x10^3/uL (0-0.4); Eosinophil (Absolute #) 0 x10^3/uL (0-0.5); Hematocrit 35.6 % (35-47); Hemoglobin 11.2 g/dL (12.0-16.0); IMMATURE GRAN # 0.03 x10^3u/L (0.00-0.03); IMMATURE GRAN % 0.5 % (0.00-0.4); Lymphocyte (Absolute #) 0.37 x10^3/uL (1.0-4.6); Lymphocytes % 6.5 % (24.0-44.0); Mean Cell Volume 93.9 fL (78-100); Mean Corpuscular Hemoglobin 29.6 pg (26-32); Mean Corpuscular Hgb Concent. 31.5 g/dL (32-36); Mean Platelet Volume 11.7 fL (7.5-11.0); Monocytes % 1.8 % (0.0-12.0); Neutrophil % 91.2 % (36.0-66.0); Platelet Count 225 x10^3/uL (150-450); Red Blood Count 3.79 x10^6/uL (4.1-5.4); Red Cell Distribution Width 15.2 % (11.5-14.0); White Blood Count 5.7 x10^3/uL (4.0-10.5)
[2022-12-31] MEDS: solu-MEDROL 60 MG, Sterile H2O 10 ml 2 ML IV SCH ×2 (05:20)
[2022-12-31 05:28] LABS: ALBUMIN 3.4 g/dL (3.5-5.0); ANION GAP 10.4 MEQ/L (5-15); BILIRUBIN,TOTAL 0.4 mg/dL (0.2-1.3); Creatinine 1 1.16 mg/dL (0.52-1.04); EST GLOMERULAR FILTRATION RATE 48.4 ML/MIN; Potassium 3.8 mmol/L (3.5-5.1)
[2022-12-31 06:20] LABS: Slide Review 1 YES
--- NOTE | 2022-12-31 07:09 | PCM.DS ---
Discharge Summary Date of Admission: 12/27/22 19:37 Admitting Physician: JAIME CLAIRE Consults: Consults on Case 12/27/22 20:05 Notify Physician ROUTINE Primary Care Provider: JAIME CLAIRE Allergies Allergies No Known Drug Allergies Allergy (Unverified 11/30/22 20:07) Hospital Summary - Hospital Course Hospital Course: is a 77 year old female pt of mine from [facility] with HTN, COPD, peripheral neuropathy, OA, COPD, and osteoporosis who was admitted through ER wtih AMD, Drug OD, and elevated troponin. Her family couldn't reach her yesterday, so they went to her house and found her slumped over in front of the heater and called EMS. O2 sat was 60%. There was apparently a bottle of her opioid near. She was given Narcan 1mg x2 in the ambulance with some increased alertness. Her CTs of head/neck/chest/abd/pelvis were nonacute (although she did have a question of nondisplaced manubrium fx). She was treated as well for COPD exacerbation and UTI. She grew Pseudomonas with low colony count but was changed from rocephin to levaquin and key catheter was removed. She also grew VRE so will be started on zyvox as well. She has been on IV solumedrol but will be discharged on po prednisone. She will be discharged to [facility]. - Vitals & Intake/Output Vital Signs: Vital Signs Temperature 98.2 F 12/31/22 04:00 Pulse Rate 75 12/31/22 04:00 Respiratory Rate 18 12/31/22 04:00 Blood Pressure 163/69 12/31/22 04:00 O2 Sat by Pulse Oximetry 94 L 12/31/22 04:00 Intake & Output: Intake & Output 12/28/22 12/29/22 12/30/22 12/31/22 11:59 11:59 11:59 11:59 Intake Total 0 2962 1080 730 Output Total 3700 2300 2300 900 Balance -3700 662 -1220 -170 - Lab Result Diagrams: 12/31/22 05:02 12/31/22 05:02 Lab Results-Last 24 Hrs: Lab Results-Last 24 Hours 12/30/22 12/31/22 12/31/22 Range/Units 05:12 05:02 05:02 WBC 5.7 (4.0-10.5) x10^3/uL RBC 3.79 L (4.1-5.4) x10^6/uL Hgb 11.2 L (12.0-16.0) g/dL Hct 35.6 (35-47) % MCV 93.9 (78-100) fL MCH 29.6 (26-32) pg MCHC 31.5 L (32-36) g/dL RDW 15.2 H (11.5-14.0) % Plt Count 225 (150-450) x10^3/uL MPV 11.7 H (7.5-11.0) fL Gran % 91.2 H (36.0-66.0) % Immature Gran % (Auto) 0.5 H (0.00-0.4) % Nucleat RBC Rel Count 0.0 (0.00-0.1) % Eos # (Auto) 0 (0-0.5) x10^3/uL Immature Gran # (Auto) 0.03 (0.00-0.03) x10^3u/L Absolute Lymphs (auto) 0.37 L (1.0-4.6) x10^3/uL Absolute Monos (auto) 0.10 (0.0-1.3) x10^3/uL Absolute Nucleated RBC 0.00 (0.00-0.01) x10^3u/L Lymphocytes % 6.5 L (24.0-44.0) % Monocytes % 1.8 (0.0-12.0) % Eosinophils % 0.0 (0.00-5.0) % Basophils % 0.0 (0.0-0.4) % Absolute Granulocytes 5.20 (1.4-6.9) x10^3/uL Basophils # 0 (0-0.4) x10^3/uL Sodium 135 L (137-145) mmol/L Potassium 3.8 (3.5-5.1) mmol/L Chloride 98 (98-107) mmol/L Carbon Dioxide 31 H (22-30) mmol/L Anion Gap 10.4 (5-15) MEQ/L BUN 44 H (7-17) mg/dL Creatinine 1.16 H (0.52-1.04) mg/dL Estimated GFR 48.4 ML/MIN Glucose 158 H (74-106) mg/dL Calcium 8.0 L (8.4-10.2) mg/dL Total Bilirubin 0.40 (0.2-1.3) mg/dL AST 21 (14-36) U/L ALT 14 (0-35) U/L Alkaline Phosphatase 65 (38-126) U/L Serum Total Protein 6.0 L (6.3-8.2) g/dL Albumin 3.4 L (3.5-5.0) g/dL Slides for Path Review YES YES Micro Results-Entire Visit: Microbiology 12/27/22 14:58 Urine Culture - Preliminary Clean Catch Midstream Pseudomonas Aeruginosa 12/27/22 18:10 Blood Culture - Preliminary Blood NO GROWTH TO DATE 12/27/22 18:10 Blood Culture - Preliminary Blood NO GROWTH TO DATE - Procedures and Test Procedures and Tests throughout Hospitalization: Therapy Orders & Screens 12/27/22 16:05 Respiratory Therapy Assessment DAILY Comment: 12/27/22 17:42 Oxygen Nasal Cannula 4 lpm Comment: 12/28/22 11:54 PT Eval & Treat (MD Order) ONCE Reason for Eval:: weakness Diagnosis: altered loc, possible accidental overdose Discharge Exam General Appearance: no apparent distress, alert Neurologic Exam: oriented x 3, cooperative Eye Exam: eyes nml inspection Ears, Nose, Throat Exam: moist mucous membranes Neck Exam: normal inspection Respiratory Exam: diminished breath sounds (good air exchange), No crackles/rales, No rhonchi, No wheezing Cardiovascular Exam: regular rate/rhythm, normal heart sounds, No murmur Gastrointestinal/Abdomen Exam: soft Back Exam: normal inspection, No rash Extremity Exam: other (chronic venous insuff changes), No pedal edema, No swelling Skin Exam: warm, dry, No rash Wound Assessment: Skin/Wound Assessment Wound/Incision Assessment Start: 12/27/22 23:18 Text: Status: Active Freq: Q6H Protocol: Document 12/31/22 04:32 SM (Rec: 12/31/22 04:33 SM [id number]) Wound/Incision Assessment Left Buttock Wound Assessment Shift Assessment Wound Stage Stage II Dressing Status Changed Drainage Amount None Length (cm) (cm) 3 Width (cm) (cm) 1 Wound Bed Greatest Portion Pale [place] Wound Bed Lesser Portion Red (Granulation) Primary Dressing mepilex Wound Photo Photo Taken Yes Date: 12/27/22 Time: 19:45 Final Diagnosis/Problem List - Final Discharge Diagnosis/Problem (1) Drug overdose Current Visit: Yes Status: Resolved Code(s): T50.901A - POISONING BY UNSP DRUG/MEDS/BIOL SUBST, ACCIDENTAL, INIT (2) UTI (urinary tract infection) Current Visit: No Status: Acute Assessment & Plan: with pseudomonas and VRE. 3 more days of levaquin po and 5d of zyvox. Code(s): N39.0 - URINARY TRACT INFECTION, SITE NOT SPECIFIED (3) COPD exacerbation Current Visit: Yes Status: Acute Assessment & Plan: Doing great, home on po prednisone Code(s): J44.1 - CHRONIC OBSTRUCTIVE PULMONARY DISEASE W (ACUTE) EXACERBATION (4) Muscular deconditioning Current Visit: Yes Status: Acute Code(s): R29.898 - OTH SYMPTOMS AND SIGNS INVOLVING THE MUSCULOSKELETAL SYSTEM - Discharge Disposition: DC TO ANY "OTHER" PENITENTIARY Condition: Stable Prescriptions: New Prednisone 20 mg [Deltasone 20 mg] 60 mg PO DAILY 7 Days #17 tablet Dextrose 15 gm Oral Gel [Glutose 15 GM ORAL GEL] 15 gm PO PRN PRN PRN Reason: Hypoglycemia Levofloxacin [Levofloxacin 500 MG Tablet] 500 mg PO DAILY 3 Days #3 tablet Linezolid 600 mg PO BID #9 tablet Continue Gabapentin [Neurontin] 800 mg PO TID Clopidogrel Bisulfate [PLAVIX Tablet] 75 mg PO DAILY Hctz/Triamterene 25/37.5 mg [Maxzide 25MG] 1 tab PO DAILY #30 tab Pravastatin Sodium 40 mg PO HS Cyanocobalamin (Vitamin B-12) [Vitamin B12] 1,000 mcg PO DAILY Ropinirole HCl 0.5 mg [Requip 0.5 MG] 0.5 mg PO HSPRN PRN PRN Reason: Pain Amlodipine Besylate [Norvasc] 10 mg PO DAILY Carvedilol 12.5 mg [Coreg 12.5 mg] 12.5 mg PO BID Aspirin EC 81 mg [Ecotrin 81 mg] 81 mg PO DAILY Furosemide 20 mg [Lasix 20 mg] 20 mg PO DAILY Clonidine HCl 0.1 mg [Clonidine 0.1 mg Tablet] 0.1 mg PO BID Hydrocodone/Acetaminophen [Hydrocodone-Acetamin 10-325 mg] 1 each PO TIDPRN Lactobacillus Acidophilus [Acidophilus TABLET] 1 tab PO BID #8 tablet Nicotine 21 mg [Nicoderm CQ 21 MG] 21 mg TOP Q24H10 30 Days #30 patch Additional Instructions: ENVIVE PENITENTIARY ORDERS: -BLAND DIET -PT/OT EVAL AND TREAT -SEE ATTACHED MEDICATION LIST FOR MEDICATION ORDERS Follow up with: JAIME CLAIRE [Primary Care Provider] -
[2022-12-31] MEDS: NORVASC 5 MG PO SCH (08:47)
[2022-12-31] MEDS: LASIX 20 MG PO SCH (08:48)
[2022-12-31] MEDS: Vitamin B-12 500 MCG PO SCH (08:48)
[2022-12-31] MEDS: Nicoderm CQ 21 MG TOP SCH (08:48)
[2022-12-31] MEDS: CLONIDINE 0.1 MG TABLET PO SCH (08:48)
[2022-12-31] MEDS: COREG 12.5 MG PO SCH (08:48)
[2022-12-31] MEDS: ECOTRIN 81 MG PO SCH (08:48)
[2022-12-31] MEDS: Acidophilus TABLET PO SCH (08:48)
[2022-12-31] MEDS: Neurontin PO SCH (08:48)
[2022-12-31] MEDS: Maxzide-25MG Tablet PO SCH (08:48)
[2022-12-31] MEDS: PLAVIX Tablet PO SCH (08:48)
[2022-12-31] MEDS ORDERED: DELTASONE 20 MG PO SCH (10:00)
[2022-12-31] MEDS ORDERED: Zyvox 600 MG IV PREMIX*** 300 ML IV SCH (10:00)
[2022-12-31] MEDS ORDERED: Levaquin 250MG/50ML D5W 250 MG/50 ML BAG IV SCH (10:00)
[2022-12-31] MEDS ORDERED: Protonix 40MG Tablet PO SCH (10:00)
[2022-12-31 12:18] VITALS: BP 140/88; PULSE 68
[2023-01-01 09:29] VITALS: O2SAT 96
== END 2022-12-31 13:45 ==
LOC: ED 11:26 → ICU 19:37 → MED SURG 12-29 07:35
PROVIDERS: ADMIT Family Medicine; ATTEND Family Medicine
DX: T50.901A Poisoning by unspecified drugs, medicaments and biological substances, accidental (unintentional), initial encounter (principal); N39.0 Urinary tract infection, site not specified; J44.1 Chronic obstructive pulmonary disease with (acute) exacerbation; R29.898 Other symptoms and signs involving the musculoskeletal system; R77.8 Other specified abnormalities of plasma proteins; R40.4 Transient alteration of awareness; I10 Essential (primary) hypertension; E87.5 Hyperkalemia; L89.322 Pressure ulcer of left buttock, stage 2; Z20.828 Contact with and (suspected) exposure to other viral communicable diseases; Z79.899 Other long term (current) drug therapy; Z79.01 Long term (current) use of anticoagulants; Z72.0 Tobacco use
CPT/HCPCS: 0241U; 36415; 36600; 70450; 71250; 72125; 74176; 80048; 80053; 80307; 81001; 82375; 82803; 82947; 83036; 83605; 84484; 85025; 85610; 85730; 87040; 87077; 87086; 87186; 93005; 93268; 94640; 94762; 96374; 96375; 96376; 97110; 97161; 97530; 99284; 99291; 99292; G0378; G0480; J0696; J1630; J1650; J1815; J1956; J2020; J2060; J2920; J2930; J7609; A9270-GY

== ENCOUNTER 2023-01-21 11:14 | Observation (INO) | payer MEDICARE ==
--- NOTE | 2023-01-21 11:15 | ERPHSYRPT ---
- History of Present Illness Time Seen by Provider: 01/21/23 11:15 Source: EMS, old records, other Exam Limitations: clinical condition (Terra) Physician History: Patient is 77-year-old white female patient who has emergency department by the paramedics and additional history was obtained from the paramedics and recent admission/hospital stay and discharge summaries. This patient had altered mental status. She had several evaluations in this emergency department for the same issue. Patient, most recently, 12/27/2022 was found to have opiates in her urine triage and it was felt that she had an unintentional overdose of her medication. She is also on gabapentin. Patient has a history of heavy tobacco use and lives at home. On admission to the emergency department her vital signs are stable with a room air oxygen saturation of 91%. Patient was responding to painful stimuli. Patient takes Plavix daily, has a history of hyperlipidemia, peripheral nephropathy, hypertension, peripheral vascular disease and COPD. Timing/Duration: today Severity: moderate Character of Deficits: other (Altered mental status but moves all extremities.) Deficits: cannot stand (Secondary to altered mental status), cannot walk (Secondary to altered mental status) Baseline/Normal Cognition: poor alertness Current Cognition: poor alertness Baseline Gait: walks w/o assistance Associated Symptoms: denies symptoms Allergies/Adverse Reactions: No Known Drug Allergies Allergy (Unverified 11/30/22 20:07) Home Medications: Clopidogrel Bisulfate [PLAVIX Tablet] 75 mg PO DAILY 07/15/15 [History] Gabapentin [Neurontin] 800 mg PO TID 07/15/15 [History] Amlodipine Besylate [Norvasc] 10 mg PO DAILY 11/30/22 [History] Aspirin EC 81 mg [Ecotrin 81 mg] 81 mg PO DAILY 11/30/22 [History] Carvedilol 12.5 mg [Coreg 12.5 mg] 12.5 mg PO BID 11/30/22 [History] Clonidine HCl 0.1 mg [Clonidine 0.1 mg Tablet] 0.1 mg PO BID 11/30/22 [History] Cyanocobalamin (Vitamin B-12) [Vitamin B12] 1,000 mcg PO DAILY 11/30/22 [ History] Furosemide 20 mg [Lasix 20 mg] 20 mg PO DAILY 11/30/22 [History] Hydrocodone/Acetaminophen [Hydrocodone-Acetamin 10-325 mg] 1 each PO TIDPRN 11/30/22 [History] Pravastatin Sodium 40 mg PO HS 11/30/22 [History] Ropinirole HCl 0.5 mg [Requip 0.5 MG] 0.5 mg PO HSPRN PRN 11/30/22 [H istory] Hx Tetanus, Diphtheria Vaccination/Date Given: No Hx Influenza Vaccination/Date Given: No Hx Pneumococcal Vaccination/Date Given: No Travel Risk - International Travel Have you traveled outside of the country in past 3 weeks: No - Coronavirus Screening Are you exhibiting any of the following symptoms?: No Close contact with a COVID-19 positive Pt in past 14-21 Days: No - Vaccine Status Have you recieved a Covid-19 vaccination: No 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 - Vaccination Dates Dates if Unknown: 2020 - Review of Systems Constitutional: Weakness Eyes: No Symptoms Ears, Nose, & Throat: No Symptoms Respiratory: No Symptoms Cardiac: No Symptoms Abdominal/Gastrointestinal: No Symptoms Genitourinary Symptoms: No Symptoms Musculoskeletal: No Symptoms Skin: No Symptoms Neurological: Other (Altered mental status) Psychological: No Symptoms Endocrine: No Symptoms Hematologic/Lymphatic: No Symptoms Immunological/Allergic: No Symptoms All Other Systems: Reviewed and Negative - Past Medical History Pertinent Past Medical History: (unable to assess) Neurological History: Peripheral Neuropathy Cardiac History: High Cholesterol, Hypertension, Peripheral Vascular Disease Other Medical History: Unable to assess patient's medical hx d/t patient AMS. Pt's hx obtained from previous medical records. - Past Surgical History Past Surgical History: (unable to assess) Female Surgical History: Lumpectomy Other Surgical History: Unable to assess patient's medical hx d/t patient AMS. Pt's hx obtained from previous medical records. - Social History Smoking Status: Heavy tobacco smoker How long have you smoked: 55 Exposure to second hand smoke: Yes Drug Use: other Patient Lives Alone: Yes - Nursing Vital Signs Nursing Vital Signs: Initial Vital Signs Temperature 97.9 F 01/21/23 11:44 Pulse Rate 73 01/21/23 11:44 Respiratory Rate 20 01/21/23 11:44 Blood Pressure 130/63 01/21/23 11:44 O2 Sat by Pulse Oximetry 91 L 01/21/23 11:44 Pain Scale Pain Intensity 0 - Angela Coma Scale Best Eye Response (Angela): (2) open to pain Best Verbal Response (Sheridan): (4) confused conversation Best Motor Response (Sheridan): (5) localizes to pain Sheridan Total: 11 - Physical Exam General Appearance: lethargy Eye Exam: bilateral eye: normal inspection (Pinpoint pupils), PERRL, EOMI Ears, Nose, Throat Exam: normal ENT inspection, dry mucous membranes Neck Exam: normal inspection, non-tender, supple, full range of motion Respiratory: normal breath sounds, lungs clear, airway intact, No chest tenderness, No respiratory distress Cardiovascular: regular rate/rhythm, normal heart sounds, normal peripheral pulses Gastrointestinal: soft, normal bowel sounds, No tenderness Pelvic Exam: not done Rectal Exam: not done Back Exam: normal inspection, normal range of motion, No CVA tenderness, No vertebral tenderness Extremity Exam: normal inspection, normal range of motion, pelvis stable 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: tongue midline (Patient is sticking her tongue out periodically but not necessarily to commands) Skin Exam: normal color, warm, dry SpO2 Interpretation: normal, borderline oxygenation O2 Delivery: Room Air - Course Nursing assessment & vital signs reviewed: Yes EKG Interpreted by Me: RATE (72), Sinus Rhythm, NORMAL AXIS, NORMAL INTERVALS, NORMAL QRS, NORMAL ST-T, Other (No acute ischemia on today's EKG.) Ordered Tests: Active Orders 24 hr Category Date Time Status EKG-ER Only STAT Care 01/21/23 11:41 Active IV Insertion STAT Care 01/21/23 11:41 Active NPO (ED) STAT Care 01/21/23 11:41 Active POCT Glucose Check STAT Care 01/21/23 11:41 Active Pulse Oximetry (ED) STAT Care 01/21/23 11:41 Active CHEST 1 VIEW (PORTABLE) Stat Exams 01/21/23 11:42 Completed HEAD WITHOUT CONTRAST [CT] Stat Exams 01/21/23 11:22 Completed BLOOD CULTURE Stat Lab 01/21/23 12:07 Received CBC W DIFF Stat Lab 01/21/23 11:51 Completed CMP Stat Lab 01/21/23 11:51 Completed CULTURE,URINE Stat Lab 01/21/23 12:29 Received Lactic Acid Stat Lab 01/21/23 12:05 Completed Lactic Acid Stat Lab 01/21/23 14:09 Completed Manual Differential NC Stat Lab 01/21/23 11:51 Completed [place] Screen Stat Lab 01/21/23 11:51 Completed PROCALCITONIN Stat Lab 01/21/23 11:50 Completed UA W/RFX UR CULTURE Stat Lab 01/21/23 12:29 Completed Transfer Order Routine Transfer 01/21/23 Ordered Medication Summary Generic Name Dose Route Start Last Admin Trade Name Freq PRN Reason Stop Dose Admin Sodium Chloride 1,000 mls @ 100 mls/hr 01/21/23 11:45 01/21/23 12:11 Sodium Chloride 0.9% 1000 Ml IV 02/20/23 11:44 100 mls/hr .Q10H [place] Administration Discontinued Medications Generic Name Dose Route Start Last Admin Trade Name Freq PRN Reason Stop Dose Admin Fluconazole 150 mg 01/21/23 14:57 01/21/23 15:57 Fluconazole 150 Mg Tablet PO 01/21/23 14:58 150 mg STAT ONE Administration Levofloxacin/Dextrose 500 mg in 100 mls @ 100 mls/hr 01/21/23 12:51 01/21/23 14:04 Levofloxacin 500mg/100ml D5w IV 01/21/23 13:50 Infused STAT STA Infusion Levofloxacin/Dextrose Confirm 01/21/23 12:56 Levofloxacin 500mg/100ml D5w Administered 01/21/23 12:57 Dose 500 mg in 100 mls @ ud IV .STK-MED ONE Sodium Chloride 500 mls @ 500 mls/hr 01/21/23 14:58 01/21/23 15:49 Sodium Chloride 0.9% 500 Ml IV 01/21/23 15:57 500 mls/hr .Q1H ONE Administration Sodium Chloride Confirm 01/21/23 15:47 Sodium Chloride 0.9% 500 Ml Administered 01/21/23 15:48 Dose 500 mls @ ud IV .STK-MED ONE Lidocaine HCl Confirm 01/21/23 15:08 Lidocaine Hcl 1% 20 Ml Mdv 20 Ml Ml Administered 01/21/23 15:09 Dose 1 ml .ROUTE .STK-MED ONE Lab/Rad Data: Laboratory Result Diagrams 01/21/23 11:51 01/21/23 11:51 Laboratory Results 01/21/23 01/21/23 01/21/23 Range/Units 14:09 13:30 12:29 WBC (4.0-10.5) x10^3/uL RBC (4.1-5.4) x10^6/uL Hgb (12.0-16.0) g/dL Hct (35-47) % MCV (78-100) fL MCH (26-32) pg MCHC (32-36) g/dL RDW (11.5-14.0) % Plt Count (150-450) x10^3/uL MPV (7.5-11.0) fL Sodium (137-145) mmol/L Potassium (3.5-5.1) mmol/L Chloride (98-107) mmol/L Carbon Dioxide (22-30) mmol/L Anion Gap (5-15) MEQ/L BUN (7-17) mg/dL Creatinine (0.52-1.04) mg/dL Estimated GFR ML/MIN Glucose (74-106) mg/dL Lactic Acid 0.8 (0.4-2.0) Calcium (8.4-10.2) mg/dL Total Bilirubin (0.2-1.3) mg/dL AST (14-36) U/L ALT (0-35) U/L Alkaline Phosphatase (38-126) U/L Ammonia (9-30) umol/L Serum Total Protein (6.3-8.2) g/dL Albumin (3.5-5.0) g/dL Procalcitonin (0.030-0.080) ng/mL Urine Color Yellow (Yellow) Urine Appearance Cloudy A (Clear) Urine pH 5.5 (4.6-8.0) Ur Specific Meade 1.015 (1.005-1.030) Urine Protein 30 (Negative) Urine Glucose (UA) Negative (Negative) mg/dL Urine Ketones Negative (Negative) Urine Blood Small A (Negative) Urine Nitrite Negative (Negative) Urine Bilirubin Negative (Negative) Urine Urobilinogen 0.2 (0.2) mg/dL Ur Leukocyte Esterase Trace A (Negative) U Hyaline Cast (Auto) 3-5 A (0-2) /LPF Urine Microscopic RBC 3-5 (0-5) /HPF Urine Microscopic WBC 3-5 (0-5) /HPF Ur Epithelial Cells Few (None Seen) /HPF Urine Bacteria None Seen (None Seen) /HPF Urine Yeast (Budding) Many A (None Seen) /HPF Urine Culture Reflexed NO (NO) Monoscreen (Negative) Influenza Type A Ag NEGATIVE (NEGATIVE) Influenza Type B Ag NEGATIVE (NEGATIVE) RSV (PCR) NEGATIVE (Negative) SARS-CoV-2 (PCR) NEGATIVE (NEGATIVE) 01/21/23 01/21/23 01/21/23 Range/Units 12:20 12:05 11:51 WBC (4.0-10.5) x10^3/uL RBC (4.1-5.4) x10^6/uL Hgb (12.0-16.0) g/dL Hct (35-47) % MCV (78-100) fL MCH (26-32) pg MCHC (32-36) g/dL RDW (11.5-14.0) % Plt Count (150-450) x10^3/uL MPV (7.5-11.0) fL Sodium (137-145) mmol/L Potassium (3.5-5.1) mmol/L Chloride (98-107) mmol/L Carbon Dioxide (22-30) mmol/L Anion Gap (5-15) MEQ/L BUN (7-17) mg/dL Creatinine (0.52-1.04) mg/dL Estimated GFR ML/MIN Glucose (74-106) mg/dL Lactic Acid 4.3 H (0.4-2.0) Calcium (8.4-10.2) mg/dL Total Bilirubin (0.2-1.3) mg/dL AST (14-36) U/L ALT (0-35) U/L Alkaline Phosphatase (38-126) U/L Ammonia 12 (9-30) umol/L Serum Total Protein (6.3-8.2) g/dL Albumin (3.5-5.0) g/dL Procalcitonin (0.030-0.080) ng/mL Urine Color (Yellow) Urine Appearance (Clear) Urine pH (4.6-8.0) Ur Specific Meade (1.005-1.030) Urine Protein (Negative) Urine Glucose (UA) (Negative) mg/dL Urine Ketones (Negative) Urine Blood (Negative) Urine Nitrite (Negative) Urine Bilirubin (Negative) Urine Urobilinogen (0.2) mg/dL Ur Leukocyte Esterase (Negative) U Hyaline Cast (Auto) (0-2) /LPF Urine Microscopic RBC (0-5) /HPF Urine Microscopic WBC (0-5) /HPF Ur Epithelial Cells (None Seen) /HPF Urine Bacteria (None Seen) /HPF Urine Yeast (Budding) (None Seen) /HPF Urine Culture Reflexed (NO) Monoscreen NEGATIVE (Negative) Influenza Type A Ag (NEGATIVE) Influenza Type B Ag (NEGATIVE) RSV (PCR) (Negative) SARS-CoV-2 (PCR) (NEGATIVE) 01/21/23 01/21/23 01/21/23 Range/Units 11:51 11:51 11:50 WBC 9.3 (4.0-10.5) x10^3/uL RBC 3.47 L (4.1-5.4) x10^6/uL Hgb 10.3 L (12.0-16.0) g/dL Hct 36.1 (35-47) % MCV 104.0 H (78-100) fL MCH 29.7 (26-32) pg MCHC 28.5 L (32-36) g/dL RDW 17.3 H (11.5-14.0) % Plt Count 262 (150-450) x10^3/uL MPV 11.4 H (7.5-11.0) fL Sodium 140 (137-145) mmol/L Potassium 5.8 H (3.5-5.1) mmol/L Chloride 103 (98-107) mmol/L Carbon Dioxide 27 (22-30) mmol/L Anion Gap 16.2 H (5-15) MEQ/L BUN 34 H (7-17) mg/dL Creatinine 1.72 H (0.52-1.04) mg/dL Estimated GFR 30.7 ML/MIN Glucose 249 H (74-106) mg/dL Lactic Acid (0.4-2.0) Calcium 8.1 L (8.4-10.2) mg/dL Total Bilirubin 1.30 (0.2-1.3) mg/dL AST 23 (14-36) U/L ALT 21 (0-35) U/L Alkaline Phosphatase 66 (38-126) U/L Ammonia (9-30) umol/L Serum Total Protein 6.6 (6.3-8.2) g/dL Albumin 3.8 (3.5-5.0) g/dL Procalcitonin 0.233 H (0.030-0.080) ng/mL Urine Color (Yellow) Urine Appearance (Clear) Urine pH (4.6-8.0) Ur Specific Meade (1.005-1.030) Urine Protein (Negative) Urine Glucose (UA) (Negative) mg/dL Urine Ketones (Negative) Urine Blood (Negative) Urine Nitrite (Negative) Urine Bilirubin (Negative) Urine Urobilinogen (0.2) mg/dL Ur Leukocyte Esterase (Negative) U Hyaline Cast (Auto) (0-2) /LPF Urine Microscopic RBC (0-5) /HPF Urine Microscopic WBC (0-5) /HPF Ur Epithelial Cells (None Seen) /HPF Urine Bacteria (None Seen) /HPF Urine Yeast (Budding) (None Seen) /HPF Urine Culture Reflexed (NO) Monoscreen (Negative) Influenza Type A Ag (NEGATIVE) Influenza Type B Ag (NEGATIVE) RSV (PCR) (Negative) SARS-CoV-2 (PCR) (NEGATIVE) - Progress Progress: improved Progress Note: 01/21/23 12:52 Reexamination of this patient shows the patient now responding to questions. She is less lethargic. Chest x-ray interpreted by radiologist and impression reviewed by me right side mid to lower lung infiltrate. No cardiomegaly present. No pleural effusions. CT scan of the head without contrast shows age-appropriate global atrophy with a remote lacunar infarct of the right thalamus. The remainder of this scan is negative. 01/21/23 16:24 This patient's medical issue is of high complexity. She has a significant past medical history. The work-up was based on review of the patient's past medical history, medication list and drug allergy list. It is also based on the history of present illness and presentation of this patient to the emergency department by the ambulance service. It is also based on the physical findings of this patient. Reexamination shows her to be much more awake alert and oriented. She is allowing us to place her on oxygen in which she is supposed to be on at home. I reviewed the work-up results which included CAT scan of the head, ammonia level, chest x-ray, urinalysis, CBC, CMP. The CAT scan of the head is does not show any acute intracranial abnormality. The chest x-ray shows a right side pneumonia. Patient tolerated a small meal. However, she is too weak to ambulate on her own. She lives alone. Her sisters are concerned that she will not be able to move around on her own and they are frail and cannot lift or help her move. I do think it is reasonable to place her in observation for intravenous fluids, intravenous antibiotics, oxygen therapy and nebulizer treatments. I did attempt to contact Dr. Wilson but he might be in clinic and we will attempt to contact him again shortly. Patient is stable here in the emergency department. 01/21/23 16:[address] Wilson who is covering for Dr. Wolf Lin. We reviewed the patient's work-up results. We also discussed the admission plan. We will place the patient on Rocephin and azithromycin intravenously, obtain respiratory therapy consultation with nebulizer treatments and put the patient on oxygen therapy. We will also obtain a consultation with discharge planning. 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 - External Record(s) Reviewed Records reviewed as a part of evaluation & management: Inpatient, Discharge [facility] - Discussion of managment Care discussed with:: on-call "doc" Reviewed:: Test results, Need for additional workup Agreed on:: Treatment plan, place in obs Will see patient: in hospital - Social Determinants of Health Limited access to: transportation - Diagnostic Testing Diagnostic test were ordered, analyzed, and reviewed by me: Yes Radiological Interpretation: Reviewed by me, Teleradiologist Report - Risk of complications The pt has a high risk of morbidity or mortality based on: Decision regarding hospitilization or escalation of hosp level of care - Departure Clinical Impression: Right middle lobe pneumonia, Weakness, Altered mental status, UTI (urinary tract infection) Condition: Fair Critical Care Time: No Referrals: JAIME CLAIRE [Primary Care Provider] - Follow up/PCP as directed
[2023-01-21] MEDS ORDERED: Sodium Chloride 0.9% 1000 ML 1,000 ML IV SCH (11:45)
[2023-01-21 11:52] LABS: Hematocrit 36.1 % (35-47); Hemoglobin 10.3 g/dL (12.0-16.0); Mean Corpuscular Hemoglobin 29.7 pg (26-32); Mean Corpuscular Hgb Concent. 28.5 g/dL (32-36); Mean Platelet Volume 11.4 fL (7.5-11.0); Platelet Count 262 x10^3/uL (150-450); Red Blood Count 3.47 x10^6/uL (4.1-5.4); Red Cell Distribution Width 17.3 % (11.5-14.0); White Blood Count 9.3 x10^3/uL (4.0-10.5)
--- NOTE | 2023-01-21 12:02 | XRAY ---
Indication: Loss of consciousness. Multiple contiguous axial images obtained through the head without contrast. Comparison: December 27, 2022 Again age-appropriate global atrophy. New remote lacunar infarct right thalamus. No acute intracranial hemorrhage, abnormal extra-axial fluid collection, or mass effect. Fourth ventricle is midline without hydrocephalus. Aguilera-white matter differentiation preserved. Bony calvarium intact. Visualized paranasal sinuses and mastoid air cells are clear. Impression: Remote lacunar infarct right thalamus. Remaining CT head without contrast exam is again negative.
[2023-01-21 12:04] LABS: ALBUMIN 3.8 g/dL (3.5-5.0); ANION GAP 16.2 MEQ/L (5-15); BILIRUBIN,TOTAL 1.3 mg/dL (0.2-1.3); Calcium 8.1 mg/dL (8.4-10.2); Creatinine 1 1.72 mg/dL (0.52-1.04); EST GLOMERULAR FILTRATION RATE 30.7 ML/MIN; Potassium 5.8 mmol/L (3.5-5.1); Total Protein 6.6 g/dL (6.3-8.2)
--- NOTE | 2023-01-21 12:04 | XRAY ---
Indication: Fever. Comparison: December 03, 2022 Portable chest demonstrates worsening moderate right mid to lower lung infiltrate/atelectasis/effusion. Left lung is now clear. Heart not enlarged for AP portable technique. Bony thorax intact.
[2023-01-21] MEDS ORDERED: Sodium Chloride 0.9% 1000 ML 1,000 ML ONE (12:11)
[2023-01-21] MEDS ORDERED: Levofloxacin 500MG/100ML D5W 500 MG/100 ML BAG IV STA (12:51)
[2023-01-21] MEDS ORDERED: Levofloxacin 500MG/100ML D5W 500 MG/100 ML BAG IV ONE (12:56)
[2023-01-21 13:33] LABS: Appearance Cloudy (Clear); Bacteria None Seen /HPF (None Seen); Bilirubin Negative (Negative); Blood Small (Negative); Epithelial Cells Few /HPF (None Seen); Glucose, Urine Negative (Negative); Ketones Negative (Negative); Leukocyte Esterase Trace (Negative); Nitrite Negative (Negative); Ph 5.5 (4.6-8.0); Protein,Urine Dip 30 (Negative); Specific Gravity 1.015 (1.005-1.030); Urobilinogen 0.2 mg/dL (0.2)
[2023-01-21 13:42] LABS: Budding Yeast Many /HPF (None Seen)
[2023-01-21 13:43] LABS: ADD URINE CULTURE? NO (NO)
[2023-01-21 14:00] LABS: INFLUENZA A NEGATIVE (NEGATIVE); INFLUENZA B NEGATIVE (NEGATIVE); RESPIRATORY SYNCTIAL VIRUS NEGATIVE (Negative); SARS-CoV-2 Xpert Express NEGATIVE (NEGATIVE)
[2023-01-21] MEDS ORDERED: DIFLUCAN PO ONE (14:57)
[2023-01-21] MEDS ORDERED: Sodium Chloride 0.9% 500 ML 500 ML IV ONE ×2 (14:58→15:47)
[2023-01-21] MEDS ORDERED: XYLOCAINE 1% HCL 20 ML MDV ONE (15:08)
[2023-01-21] MEDS ORDERED: Zofran 4 MG/2 ML VIAL IV PRN (18:05)
[2023-01-21] MEDS ORDERED: PROVENTIL 2.5 MG/3 ML NEB IH ONE (19:38)
[2023-01-21] MEDS: PROVENTIL 2.5 MG/3 ML NEB IH SCH (19:40)
[2023-01-21] MEDS: TYLENOL 325 MG PO PRN (21:15)
[2023-01-21] MEDS ORDERED: ROCEPHIN 2 Gm-D5w 50ML BAG** 2 G/50 ML IVPB IV ONE (21:55)
[2023-01-21] MEDS ORDERED: Nicoderm CQ 21 MG TOP SCH (22:15)
[2023-01-21] MEDS ORDERED: Requip 0.5 MG ONE (22:23)
[2023-01-21] MEDS ORDERED: ZOCOR 20MG ONE (22:24)
[2023-01-21] MEDS: CLONIDINE 0.1 MG TABLET PO SCH (22:26)
[2023-01-21] MEDS: COREG 12.5 MG PO SCH (22:27)
[2023-01-21] MEDS: Sodium Chloride 0.9% 1000 ML 1,000 ML IV SCH (22:33)
[2023-01-22] MEDS: PROVENTIL 2.5 MG/3 ML NEB IH SCH ×4 (01:26→14:12)
[2023-01-22 02:02] LABS: Absolute Neutrophil Ct (ANC) 7.15 x10^3/uL (1.4-6.9); BASOPHIL % 0.5 % (0.0-0.4); Basophil (Absolute #) 0.05 x10^3/uL (0-0.4); Eosinophil % 1.2 % (0.00-5.0); Eosinophil (Absolute #) 0.11 x10^3/uL (0-0.5); IMMATURE GRAN % 1.1 % (0.00-0.4); Lymphocyte (Absolute #) 1.45 x10^3/uL (1.0-4.6); Lymphocytes % 15.5 % (24.0-44.0); Monocyte (Absolute #) 0.47 x10^3/uL (0.0-1.3); NUCLEATED RBC % 0.2 % (0.00-0.1); Neutrophil % 76.7 % (36.0-66.0); Slide Review 1 YES
[2023-01-22 02:03] LABS: NUCLEATED RBC # 0.02 x10^3u/L (0.00-0.01)
[2023-01-22 04:34] LABS: Absolute Neutrophil Ct (ANC) 3.89 x10^3/uL (1.4-6.9); BASOPHIL % 0.3 % (0.0-0.4); Basophil (Absolute #) 0.02 x10^3/uL (0-0.4); Eosinophil (Absolute #) 0.07 x10^3/uL (0-0.5); Hematocrit 30.7 % (35-47); Hemoglobin 9.2 g/dL (12.0-16.0); IMMATURE GRAN # 0.03 x10^3u/L (0.00-0.03); IMMATURE GRAN % 0.4 % (0.00-0.4); Lymphocyte (Absolute #) 2.01 x10^3/uL (1.0-4.6); Lymphocytes % 30.1 % (24.0-44.0); Mean Platelet Volume 11.2 fL (7.5-11.0); Monocyte (Absolute #) 0.66 x10^3/uL (0.0-1.3); Monocytes % 9.9 % (0.0-12.0); Neutrophil % 58.3 % (36.0-66.0); Platelet Count 225 x10^3/uL (150-450); Red Blood Count 3.07 x10^6/uL (4.1-5.4); Red Cell Distribution Width 17.4 % (11.5-14.0); White Blood Count 6.7 x10^3/uL (4.0-10.5)
[2023-01-22] MEDS: TYLENOL 325 MG PO PRN (04:37)
[2023-01-22 04:54] LABS: ALBUMIN 3.4 g/dL (3.5-5.0); ANION GAP 9.8 MEQ/L (5-15); BILIRUBIN,TOTAL 0.6 mg/dL (0.2-1.3); Calcium 7.8 mg/dL (8.4-10.2); Creatinine 1 1.34 mg/dL (0.52-1.04); Total Protein 6.1 g/dL (6.3-8.2)
[2023-01-22 04:56] LABS: Potassium 4.2 mmol/L (3.5-5.1)
[2023-01-22] MEDS ORDERED: HYDROCODONE-ACETAMIN 10-325 MG PO PRN (09:14)
[2023-01-22] MEDS: NEURONTIN PO SCH ×2 (09:37→15:18)
[2023-01-22] MEDS: COREG 12.5 MG PO SCH (09:38)
[2023-01-22] MEDS: CLONIDINE 0.1 MG TABLET PO SCH (09:39)
[2023-01-22] MEDS ORDERED: LASIX 20 MG PO SCH (10:00)
[2023-01-22] MEDS ORDERED: Vitamin B-12 500 MCG PO SCH (10:00)
[2023-01-22] MEDS ORDERED: Neurontin PO SCH (10:00)
[2023-01-22] MEDS ORDERED: Maxzide-25MG Tablet PO SCH (10:00)
[2023-01-22] MEDS ORDERED: Zithromax 500 MG/ 250 ML NaCl Premix 500 MG/250 ML IVPB IV SCH ×2 (10:00→22:00)
[2023-01-22] MEDS ORDERED: ROCEPHIN 2 Gm-D5w 50ML BAG** 2 G/50 ML IVPB IV SCH ×2 (10:00→22:00)
[2023-01-22] MEDS ORDERED: PLAVIX Tablet PO SCH (10:00)
[2023-01-22] MEDS ORDERED: BABY ASPIRIN 81 MG CHEW PO SCH (10:00)
[2023-01-22] MEDS ORDERED: ECOTRIN 81 MG PO SCH (10:00)
[2023-01-22] MEDS ORDERED: NON-FORMULARY ITEM (Cyanocobalamin (Vitamin B-12) [Vitamin B12] 2,500 MCG Tab.Chew) PO SCH (10:00)
[2023-01-22 12:38] VITALS: BP 141/64
[2023-01-22 14:13] VITALS: PULSE 71; O2SAT 92
[2023-01-22] MEDS: Sodium Chloride 0.9% 1000 ML 1,000 ML IV SCH (15:17)
[2023-01-22] MEDS ORDERED: Requip 0.5 MG PO PRN (22:00)
[2023-01-22] MEDS ORDERED: ZOCOR 20MG PO SCH (22:00)
[2023-01-22] MEDS ORDERED: Requip 0.5 MG PO SCH (22:00)
--- NOTE | 2023-02-08 21:14 | PCM.SSS ---
History of Present Illness - Chief Complaint Chief Complaint: R pneumonia; weakness; UTI; AMS Date: 01/22/23 History of Present Illness: Patient is 77-year-old white female patient who has emergency department by the paramedics and additional history was obtained from the paramedics and recent admission/hospital stay and discharge summaries. This patient had altered mental status. She had several evaluations in this emergency department for the same issue. Patient, most recently, 12/27/2022 was found to have opiates in her urine triage and it was felt that she had an unintentional overdose of her medication. She is also on gabapentin. Patient has a history of heavy tobacco use and lives at home. On admission to the emergency department her vital signs are stable with a room air oxygen saturation of 91%. Patient was responding to painful stimuli. Patient takes Plavix daily, has a history of hyperlipidemia, peripheral nephropathy, hypertension, peripheral vascular disease and COPD. - Review of Systems Constitutional: No Fever, No Chills Eyes: No Symptoms Ears, Nose, & Throat: No Symptoms Respiratory: No Cough, No Short Of Breath Cardiac: No Chest Pain, No Edema, No Syncope Abdominal/Gastrointestinal: No Abdominal Pain, No Nausea, No Vomiting, No Diarrhea Genitourinary Symptoms: No Dysuria Musculoskeletal: No Back Pain, No Neck Pain Skin: No Rash Neurological: No Dizziness, No Focal Weakness, No Sensory Changes Psychological: No Symptoms Endocrine: No Symptoms Hematologic/Lymphatic: No Symptoms Immunological/Allergic: No Symptoms Medications & Allergies Home Medications: Home Medication List Clopidogrel Bisulfate [PLAVIX Tablet] 75 mg PO DAILY 07/15/15 [History Confirmed 01/21/23] Gabapentin [Neurontin] 800 mg PO TID 07/15/15 [History Confirmed 01/21/23] Hctz/Triamterene 25/37.5 mg [Maxzide 25MG] 1 tab PO DAILY #30 tab 07/15/15 [Rx Confirmed 01/21/23] Amlodipine Besylate [Norvasc] 10 mg PO DAILY 11/30/22 [History Confirmed ] Aspirin EC 81 mg [Ecotrin 81 mg] 81 mg PO DAILY 11/30/22 [History Confirmed 01/21/23] Carvedilol 12.5 mg [Coreg 12.5 mg] 12.5 mg PO BID 11/30/22 [History Confirmed 01/21/23] Clonidine HCl 0.1 mg [Clonidine 0.1 mg Tablet] 0.1 mg PO BID 11/30/22 [History Confirmed 01/21/23] Cyanocobalamin (Vitamin B-12) [Vitamin B12] 1,000 mcg PO DAILY 11/30/22 [History Confirmed 01/21/23] Furosemide 20 mg [Lasix 20 mg] 20 mg PO DAILY 11/30/22 [History Confirmed 01/21/23] Hydrocodone/Acetaminophen [Hydrocodone-Acetamin 10-325 mg] 1 each PO DAILY PRN PRN 11/30/22 [History Confirmed 01/21/23] Pravastatin Sodium 40 mg PO HS 11/30/22 [History Confirmed 01/21/23] Ropinirole HCl 0.5 mg [Requip 0.5 MG] 0.5 mg PO HSPRN PRN 11/30/22 [History Confirmed 01/21/23] Nicotine 21 mg [Nicoderm CQ 21 MG] 21 mg TOP Q24H10 01/21/23 [History Confirmed 01/21/23] Cephalexin Mh 500 mg [Keflex 500 mg] 500 mg PO TID 10 Days #30 cap 01/22/23 [Rx] Allergies/Adverse Reactions: Allergies Allergy/AdvReac Type Severity Reaction Status Date / Time No Known Drug Allergies Allergy Unverified 11/30/22 20:07 - Past Medical History Past Medical History: (unable to assess) Neurological History: Peripheral Neuropathy ENT History: Cataracts Cardiac History: High Cholesterol, Hypertension, Peripheral Vascular Disease Respiratory History: No Pertinent History Endocrine Medical History: No Pertinent History Comment: Unable to assess patient's medical hx d/t patient AMS. Pt's hx obtained from previous medical records. - Female History Are you now?: No - Past Surgical History Past Surgical History: Yes Female Surgical History: Lumpectomy, Other Other Surgical History: Unable to assess patient's medical hx d/t patient AMS. Pt's hx obtained from previous medical records. Left oophorectomy; - Social History Smoking Status: Heavy tobacco smoker How long have you smoked: 55 Exposure to second hand smoke: Yes Alcohol: None Drug Use: other - Physical Exam General Appearance: no apparent distress, alert Neurologic Exam: alert, oriented x 3, cooperative, normal mood/affect, nml cerebellar function, nml station & gait, sensation nml, No motor deficits Eye Exam: PERRL/EOMI, eyes nml inspection Ears, Nose, Throat Exam: normal ENT inspection, TMs normal, pharynx normal, kelsi st mucous membranes Neck Exam: normal inspection, non-tender, supple, full range of motion Respiratory Exam: normal breath sounds, lungs clear, No respiratory distress Cardiovascular Exam: regular rate/rhythm, normal heart sounds, normal peripheral pulses Gastrointestinal/Abdomen Exam: soft, normal bowel sounds, No tenderness, No mass Back Exam: normal inspection, normal range of motion, No CVA tenderness, No vertebral tenderness Extremity Exam: normal inspection, normal range of motion, pelvis stable Skin Exam: normal color, warm, dry, No rash Lymphatic Exam: No adenopathy Results - Labs Lab/Micro Results: Microbiology 01/21/23 12:07 Blood Culture Gram Stain - Final Blood Not Reportable Blood Culture - Final NO GROWTH 01/21/23 12:03 Blood Culture Gram Stain - Final Blood Not Reportable Blood Culture - Final NO GROWTH 01/21/23 12:29 Urine Culture - Final Catherized <10K NORMAL SKIN MARCELO PROBABLE SKIN CONTAMINANT Assessment/Plan (1) Altered mental status Status: Acute Code(s): R41.82 - ALTERED MENTAL STATUS, UNSPECIFIED (2) UTI (urinary tract infection) Status: Acute Qualifiers: Code(s): N39.0 - URINARY TRACT INFECTION, SITE NOT SPECIFIED Hospital Summary - Hospital Course Hospital Course: Pt. mental status rapidly improved with appropriate treatment, pt. was stable for discharge to home on po antibiotics for treatment of UTI. - Vitals & Intake/Output Vital Signs: Vital Signs Temperature 98.0 F 01/22/23 12:00 Pulse Rate 71 01/22/23 14:12 Respiratory Rate 18 01/22/23 14:12 Blood Pressure 141/64 01/22/23 12:00 O2 Sat by Pulse Oximetry 92 L 01/22/23 14:12 - Lab Result Diagrams: 01/22/23 04:21 01/22/23 04:21 Micro Results-Entire Visit: Microbiology 01/21/23 12:07 Blood Culture Gram Stain - Final Blood Not Reportable Blood Culture - Final NO GROWTH 01/21/23 12:03 Blood Culture Gram Stain - Final Blood Not Reportable Blood Culture - Final NO GROWTH 01/21/23 12:29 Urine Culture - Final Catherized <10K NORMAL SKIN MARCELO PROBABLE SKIN CONTAMINANT - Procedures and Test Procedures and Tests throughout Hospitalization: Therapy Orders & Screens 01/21/23 18:05 Oxygen Nasal Cannula 2 lpm Comment: Respiratory Therapy Consult ROUTINE Comment: Reason For Exam: 01/21/23 19:15 OT Screen per Nursing Assess ONCE Comment: Protocol Order Physician Instructions: Greater than 3 points order OT Admission Screening Reason For Exam: Triggered on Admission Diagnosis: R pneumonia; weakness; UTI; AMS Open Wound/Cellutlitis/Pressure Ulcers: Yes Acute Fx/ORIF/Change in wt bearing status: No Severe MUSCULOSKELETAL pain: No ADL Dysfunction: Yes Acute CVA w/Hemiparesis/Hemiplegia: No Decreased Functional Mobility/Strength: Yes Sprain/Strain: No Acute Post-op Mobility Dysfunction: No Total Points: 9 PT Screen per Nursing Assess ONCE Comment: Protocol Order Physician Instructions: Greater than 3 points order PT Admission Screenin Reason For Exam: Triggered on Admission Diagnosis: R pneumonia; weakness; UTI; AMS Open Wound/Cellutlitis/Pressure Ulcers: Yes Acute Fx/ORIF/Change in wt bearing status: No Severe MUSCULOSKELETAL pain: No ADL Dysfunction: Yes Acute CVA w/Hemiparesis/Hemiplegia: No Decreased Functional Mobility/Strength: Yes Sprain/Strain: No Acute Post-op Mobility Dysfunction: No Total Points: 9 Smoking Cessation Education ONCE Comment: Diagnosis: R pneumonia; weakness; UTI; AMS Smoking Status: Heavy tobacco smoker How long have you smoked: 55 Have you smoked in the past 12 months: Yes Approximately how many cigarettes per day: 20 Do you dip or chew tobacco: No 01/21/23 19:58 Smoking Cessation Education ONCE Comment: Diagnosis: R pneumonia; weakness; UTI; AMS Smoking Status: Heavy tobacco smoker How long have you smoked: 55 Have you smoked in the past 12 months: Yes Approximately how many cigarettes per day: 20 Do you dip or chew tobacco: No 01/21/23 20:02 Respiratory Therapy Assessment DAILY Comment: Diagnosis: R pneumonia; weakness; UTI; AMS 01/22/23 08:28 PT Eval & Treat (MD Order) ONCE Reason for Eval:: weakness, NH placement Diagnosis: R pneumonia; weakness; UTI; AMS - Discharge Discharge Date: 01/22/23 Disposition: DC TO ANY "OTHER" [facility] Condition: Good Prescriptions: New Cephalexin Mh 500 mg [Keflex 500 mg] 500 mg PO TID 10 Days #30 cap Continue Gabapentin [Neurontin] 800 mg PO TID Clopidogrel Bisulfate [PLAVIX Tablet] 75 mg PO DAILY Hctz/Triamterene 25/37.5 mg [Maxzide 25MG] 1 tab PO DAILY #30 tab Pravastatin Sodium 40 mg PO HS Cyanocobalamin (Vitamin B-12) [Vitamin B12] 1,000 mcg PO DAILY Ropinirole HCl 0.5 mg [Requip 0.5 MG] 0.5 mg PO HSPRN PRN PRN Reason: Pain Amlodipine Besylate [Norvasc] 10 mg PO DAILY Carvedilol 12.5 mg [Coreg 12.5 mg] 12.5 mg PO BID Aspirin EC 81 mg [Ecotrin 81 mg] 81 mg PO DAILY Furosemide 20 mg [Lasix 20 mg] 20 mg PO DAILY Clonidine HCl 0.1 mg [Clonidine 0.1 mg Tablet] 0.1 mg PO BID Hydrocodone/Acetaminophen [Hydrocodone-Acetamin 10-325 mg] 1 each PO DAILY PRN PRN PRN Reason: Pain Nicotine 21 mg [Nicoderm CQ 21 MG] 21 mg TOP Q24H10 Additional Instructions: Envive correction orders; -PT/OT EVAL AND TREAT. -O2 AT 3L AT ALL TIMES -REGULAR DIET -SEE ATTACHED MEDICATION LIST Follow up with: JAIME CLAIRE [Primary Care Provider] -
== END 2023-01-22 15:25 ==
LOC: ED 11:14 → MED SURG 17:57
PROVIDERS: ADMIT Family Medicine; ATTEND Family Medicine
DX: N39.0 Urinary tract infection, site not specified (principal); J18.9 Pneumonia, unspecified organism; R41.82 Altered mental status, unspecified; I10 Essential (primary) hypertension; E78.5 Hyperlipidemia, unspecified; Z79.01 Long term (current) use of anticoagulants; Z79.899 Other long term (current) drug therapy; Z20.828 Contact with and (suspected) exposure to other viral communicable diseases; Z72.0 Tobacco use
CPT/HCPCS: 0241U; 36415; 70450; 71045; 80053; 81001; 82140; 83605; 84134; 84145; 85025; 86308; 87040; 87086; 93005; 94640; 94760; 96365; 97161; 97530; 99285; G0378; J0456; J0696; J1956; J7609; A9270-GY

== ENCOUNTER 2023-02-03 11:04 | Emergency (ER) | payer MEDICARE ==
[2023-02-03] MEDS ORDERED: Amidate 20 MG/10 ML IV STA (11:12)
[2023-02-03] MEDS ORDERED: Propofol 1000 mg/100 ml Bottle 100 ML IV ONE (11:16)
[2023-02-03 11:26] LABS: A-aADO2 596; ABG HEMOGLOBIN 10.8; ABG POTASSIUM 5.6 (3.5-5.1); ARTERIAL BLD GAS O2 SATURATION 75.5 % (95-100); ARTERIAL BLOOD GAS BASE EXCESS -3.8 (-2.0-2.0); ARTERIAL BLOOD GAS FIO2 100 %; ARTERIAL BLOOD GAS PCO2 56 mmHg (35-45); HGB O2 SAT 67.8 g/dF (94-100); Methhemoglobin 0.5 % (1.4-1.5); paO2 pAO1 0.07
[2023-02-03] MEDS ORDERED: SUBLIMAZE 100 MCG/2 ML ONE (11:26)
[2023-02-03 11:27] LABS: ARTERIAL BLOOD GAS PO2 47 mmHg (75-100); ARTERIAL BLOOD GAS pH 7.24 (7.35-7.45)
[2023-02-03 11:28] LABS: ABG SITE RIGHT BRACHIAL; CARBOXYHEMOGLOBIN 9.7 % THgb (0.0-6.9)
[2023-02-03] MEDS ORDERED: Propofol 1000 mg/100 ml Bottle 100 ML IV PRN (11:30)
[2023-02-03] MEDS ORDERED: DIPRIVAN 200 MG/20 ML IV STA (11:30)
[2023-02-03] MEDS ORDERED: SUBLIMAZE 100 MCG/2 ML IV STA (11:30)
[2023-02-03] MEDS ORDERED: FENTANYL 500 MCG/10 ML VIAL 1,500 MCG in Sodium Chloride 0.9% 150 ML 120 ML IV PRN (11:30)
[2023-02-03] MEDS ORDERED: Sodium Chloride 0.9% 1000 ML 1,000 ML IV SCH (11:30)
[2023-02-03] MEDS ORDERED: Zemuron 100 MG/10 ML IV STA (11:30)
--- NOTE | 2023-02-03 11:32 | XRAY ---
Indication: Unresponsive. Endotracheal tube and NG tube placement. Comparison: January 21, 2023 Portable chest is now rotated with new endotracheal tube tip approximately 2.5 cm above hai and NG tube tip in stomach. Slight worsening moderate right mid to lower lung infiltrate/atelectasis/effusion and new left infrahilar patchy airspace disease. Heart not enlarged again with tortuous arteriosclerotic descending aorta.
[2023-02-03 11:42] LABS: A-aADO2 552; ABG HEMOGLOBIN 8.9; ABG POTASSIUM 5.1 (3.5-5.1); ARTERIAL BLD GAS O2 SATURATION 97.4 % (95-100); ARTERIAL BLOOD GAS FIO2 100 %; ARTERIAL BLOOD GAS PO2 82 mmHg (75-100); ARTERIAL BLOOD GAS pH 7.21 (7.35-7.45); HCO3- 25.2 (22-28); HGB O2 SAT 87.7 g/dF (94-100); Lactic Acid 1.7 (0.4-2.0); Methhemoglobin 0.6 % (1.4-1.5); paO2 pAO1 0.13
[2023-02-03 11:43] LABS: ABG SITE LEFT BRACHIAL; ARTERIAL BLOOD GAS PCO2 63 mmHg (35-45); CARBOXYHEMOGLOBIN 9.5 % THgb (0.0-6.9)
--- NOTE | 2023-02-03 11:53 | ERPHSYRPT ---
- History of Present Illness Time Seen by Provider: 02/03/23 11:10 Source: family, EMS Exam Limitations: other (Patient unresponsive) Patient Subjective Stated Complaint: Home health called and stated pt was released from invive yesterday and they wanted to put her on hospice. home health rn came to check on pt and found her unresponsive. EMS stated pt was unresponsive with good heart rate and unremarkable 12 lead. last time anyone saw her was yesterday Triage Nursing Assessment: Pt presented painfully responsive with bvm. PT had iv in left forearm. upon arrival, pt was intubated per nursing notes. Physician History: Patient 77-year-old female presents emergency department via EMS for evaluation of unresponsiveness. Patient was found unresponsive by her home health nurse this morning. Patient was observed sitting on a couch with her head leaning forward. Patient was last seen normal yesterday. Patient was discharged from advised yesterday. Due to patient's mental status she was unable to provide in formation towards the HPI. However EMS provided some information. We contacted patient's sister who also provided some information. Patient's sister states that patient is a full code. Patient is not a DNR. Timing/Duration: today Severity: severe Modifying Factors: Improves With: nothing Associated Symptoms: other (Patient observed to be hypothermic.) Allergies/Adverse Reactions: No Known Drug Allergies Allergy (Unverified 11/30/22 20:07) Home Medications: Clopidogrel Bisulfate [PLAVIX Tablet] 75 mg PO DAILY 07/15/15 [History] Gabapentin [Neurontin] 800 mg PO TID 07/15/15 [History] Amlodipine Besylate [Norvasc] 10 mg PO DAILY 11/30/22 [History] Aspirin EC 81 mg [Ecotrin 81 mg] 81 mg PO DAILY 11/30/22 [History] Carvedilol 12.5 mg [Coreg 12.5 mg] 12.5 mg PO BID 11/30/22 [History] Clonidine HCl 0.1 mg [Clonidine 0.1 mg Tablet] 0.1 mg PO BID 11/30/22 [History] Cyanocobalamin (Vitamin B-12) [Vitamin B12] 1,000 mcg PO DAILY 11/30/22 [History] Furosemide 20 mg [Lasix 20 mg] 20 mg PO DAILY 11/30/22 [History] Hydrocodone/Acetaminophen [Hydrocodone-Acetamin 10-325 mg] 1 each PO DAILY PRN PRN 11/30/22 [History] Pravastatin Sodium 40 mg PO HS 11/30/22 [History] Ropinirole HCl 0.5 mg [Requip 0.5 MG] 0.5 mg PO HSPRN PRN 11/30/22 [History] Nicotine 21 mg [Nicoderm CQ 21 MG] 21 mg TOP Q24H10 01/21/23 [History] Hx Tetanus, Diphtheria Vaccination/Date Given: No Hx Influenza Vaccination/Date Given: No Hx Pneumococcal Vaccination/Date Given: No Immunizations Up to Date: Yes Travel Risk - International Travel Have you traveled outside of the country in past 3 weeks: No - Coronavirus Screening Are you exhibiting any of the following symptoms?: No Close contact with a COVID-19 positive Pt in past 14-21 Days: No - Vaccine Status Have you recieved a Covid-19 vaccination: No Body Liner: Unknown - Vaccination Dates Dates if Unknown: 2020 - Review of Systems All Other Systems: Unable due to condition - Past Medical History Pertinent Past Medical History: (unable to assess) Neurological History: Peripheral Neuropathy ENT History: Cataracts Cardiac History: High Cholesterol, Hypertension, Peripheral Vascular Disease Respiratory History: No Pertinent History Endocrine Medical History: No Pertinent History Other Medical History: Unable to assess patient's medical hx d/t patient AMS. Pt's hx obtained from previous medical records. - Past Surgical History Past Surgical History: Yes Female Surgical History: Lumpectomy, Other Other Surgical History: Unable to assess patient's medical hx d/t patient AMS. Pt's hx obtained from previous medical records. Left oophorectomy; - Social History Smoking Status: Heavy tobacco smoker How long have you smoked: 55 Exposure to second hand smoke: Yes Drug Use: other Patient Lives Alone: Yes - Nursing Vital Signs Nursing Vital Signs: Initial Vital Signs Temperature 96.1 F 02/03/23 11:04 Pulse Rate 77 02/03/23 11:04 Respiratory Rate 12 02/03/23 11:04 Blood Pressure 113/38 02/03/23 11:04 O2 Sat by Pulse Oximetry 95 02/03/23 11:04 Pain Scale Pain Intensity 0 - Physical Exam General Appearance: other Eye Exam: PERRL/EOMI (Unresponsive), eyes nml inspection, No scleral icterus Ears, Nose, Throat Exam: normal ENT inspection, TMs normal, pharynx normal, moist mucous membranes Neck Exam: supple, full range of motion (No reports of trauma) Respiratory Exam: rhonchi Cardiovascular Exam: normal heart sounds, normal peripheral pulses Gastrointestinal/Abdomen Exam: soft, No distention Extremity Exam: normal inspection, normal range of motion, No swelling Neurologic Exam: other Skin Exam: normal color, other (Skin cool to touch) Lymphatic Exam: No adenopathy SpO2: 100 O2 Delivery: Ambu-Bag Procedures - Intubation Time of Intubation: 11:15 Intubation Indications: respiratory arrest Intubation Method: orotracheal Tube Size (cm): 7.5 Medications: Etomidate, Rocuronium C-Spine: maintained Endotracheal Tube Confirmation: bilateral breath sounds, positive end tidal CO2, good rise & fall of chest, stable or inc of O2 sat Intubation Complications: no complications Performed By: Respiratory Therapy (Emergency physician on standby. Dr. Lopez is a respiratory therapist during intubation.) Post Intubation Xray: Yes - Course Nursing assessment & vital signs reviewed: Yes EKG Interpreted by Me: RATE (71), Sinus Rhythm, NORMAL AXIS, prolonged QT interval (Borderline prolonged QT interval at 437.) - CT Exams Chest CT Interpretation: Tele-radiologist Report (No PE. Right lung atelectasis, bilateral pleural effusion, shift of mediastinum structures towards the right. Chronic pulmonary emphysema, bilateral adrenal adenomas, old granulomatous disease) Head CT Interpretation: Tele-radiologist Report (Stable remote lacunar infarct right thalamus. New fluid filled naso-oropharynx concern for aspiration. Consider NG tube placement. Remaining CT head without contrast exam is again negative.) Ordered Tests: Active Orders 24 hr Category Date Time Status Curriculum Advisory Teacher STAT Care 02/03/23 11:17 Active EKG-ER Only STAT Care 02/03/23 11:16 Active IV Insertion STAT Care 02/03/23 11:16 Active Intubation [Prepare for Endotracheal Intubation] STAT Care 02/03/23 13:15 Active Pulse Oximetry (ED) STAT Care 02/03/23 11:16 Active CHEST 1 VIEW (PORTABLE) Stat Exams 02/03/23 11:09 Completed CHEST WITH CONTRAST [CT] Stat Exams 02/03/23 11:30 Completed HEAD WITHOUT CONTRAST [CT] Stat Exams 02/03/23 11:18 Completed ABG [ARTERIAL BLOOD GASES] Routine Lab 02/03/23 12:41 Completed ABG [ARTERIAL BLOOD GASES] Stat Lab 02/03/23 11:18 Completed ABG [ARTERIAL BLOOD GASES] Stat Lab 02/03/23 11:35 Completed ABG [ARTERIAL BLOOD GASES] Stat Lab 02/03/23 15:01 Completed ACETAMINOPHEN Stat Lab 02/03/23 11:51 Completed BLOOD CULTURE Stat Lab 02/03/23 12:36 Received CBC W DIFF Stat Lab 02/03/23 11:50 Completed CK-Creatinine Phosphokinase Stat Lab 02/03/23 11:51 Completed CMP Stat Lab 02/03/23 11:50 Completed ETHYL ALCOHOL Stat Lab 02/03/23 11:51 Completed Lactic Acid Stat Lab 02/03/23 11:28 Completed Lactic Acid Stat Lab 02/03/23 11:35 Completed Lactic Acid Stat Lab 02/03/23 13:45 Received Lactic Acid Urgent Lab 02/03/23 12:42 Completed NT PRO BNPII Stat Lab 02/03/23 11:51 Completed SALICYLATE Stat Lab 02/03/23 11:51 Completed TROPONIN Q4H Lab 02/03/23 11:50 Completed TROPONIN Q4H Lab 02/03/23 15:08 Received TROPONIN Q4H Lab 02/03/23 19:30 Ordered TSH [TSH, 3RD Generation] Stat Lab 02/03/23 11:51 Completed UA W/RFX UR CULTURE Stat Lab 02/03/23 11:17 Completed Urine Triage Profile Stat Lab 02/03/23 11:17 Completed Intubate Patient STAT RT 02/03/23 13:18 Completed Intubation [Ventilator Management] STAT RT 02/03/23 13:15 Active Standby STAT RT 02/03/23 13:15 Completed Medication Summary Generic Name Dose Route Start Last Admin Trade Name Freq PRN Reason Stop Dose Admin Sodium Chloride 1,000 mls @ 100 mls/hr 02/03/23 11:30 02/03/23 11:47 Sodium Chloride 0.9% 1000 Ml IV 03/05/23 11:29 100 mls/hr .Q10H [place] Administration Propofol 100 mls @ 2.52 mls/hr 02/03/23 11:30 02/03/23 11:47 Propofol 1000 Mg/100 Ml Bottle IV 03/05/23 11:29 10 mcg/kg/min .Q24H PRN 5.04 mls/hr SEDATION FOR VENT Administration Protocol 5 MCG/KG/MIN Fentanyl Citrate 1,500 mcg/ 150 mls @ 8.4 mls/hr 02/03/23 11:30 02/03/23 11:52 Sodium Chloride IV 03/05/23 11:29 1 mcg/kg/hr .[id number] PRN 8.4 mls/hr PAIN Administration Protocol 1 MCG/KG/HR Discontinued Medications Generic Name Dose Route Start Last Admin Trade Name Freq PRN Reason Stop Dose Admin Albuterol/Ipratropium 3 ml 02/03/23 14:05 Ipratropium/Albuterol Sulfate 3 Ml Ampul.Neb IH 02/03/23 14:06 STAT ONE Methylprednisolone Sodium 0 mg 02/03/23 14:04 02/03/23 14:09 Succinate 125 mg/ Sterile IV 02/03/23 14:05 125 mg Water 2 ml STAT ONE Administration Etomidate 20 mg 02/03/23 11:12 02/03/23 11:47 Etomidate 20 Mg/10 Ml Amp IV 02/03/23 11:13 20 mg STAT STA Administration Fentanyl Citrate Confirm 02/03/23 11:26 Fentanyl Citrate 100 Mcg/2 Ml* Vial Administered 02/03/23 11:27 Dose 100 mcg .ROUTE .STK-MED ONE Fentanyl Citrate 50 mcg 02/03/23 11:30 02/03/23 11:48 Fentanyl Citrate 100 Mcg/2 Ml* Vial IV 02/03/23 11:31 50 mcg STAT STA Administration Propofol Confirm 02/03/23 11:16 Propofol 1000 Mg/100 Ml Bottle Administered 02/03/23 11:17 Dose 100 mls @ ud IV .STK-MED ONE Vancomycin HCl 1 gm in 200 mls @ 125 mls/hr 02/03/23 14:06 02/03/23 14:10 Vancomycin 1 Gram/200 Ml Bag IV 02/03/23 15:41 125 mls/hr STAT ONE 125 mls/hr Administration Piperacillin Sod/Tazobactam 100 mls @ 200 mls/hr 02/03/23 14:06 02/03/23 14:12 Sod 3.375 gm/ Sodium Chloride IV 02/03/23 14:35 200 mls/hr STAT ONE Administration Vancomycin HCl Confirm 02/03/23 14:08 Vancomycin 1 Gram/200 Ml Bag Administered 02/03/23 14:09 Dose 1 gm in 200 mls @ ud IV .STK-MED ONE Sodium Chloride Confirm 02/03/23 14:11 Sodium Chloride 100ml Mini-Bag Plus Administered 02/03/23 14:12 Dose 100 mls @ ud IV .STK-MED ONE Methylprednisolone Sodium Succinate Confirm 02/03/23 14:08 Methylprednis Sod Succ 125 Mg/2 Ml Vial Administered 02/03/23 14:09 Dose 125 mg .ROUTE .STK-MED ONE Piperacillin Sod/Tazobactam Sod Confirm 02/03/23 14:11 Piperacillin/Tazobactam Sodium 3.375 Gm Vial Administered 02/03/23 14:12 Dose 3.375 gm IV .STK-MED ONE Propofol 150 mg 02/03/23 11:30 02/03/23 11:47 Propofol 10 Mg/Ml 20ml Vial IV 02/03/23 11:31 150 mg STAT STA Administration Rocuronium [place] 80 mg 02/03/23 11:30 02/03/23 11:48 Rocuronium [place] 100 Mg/10ml Vial 1 mg/kg (80 mg) 02/03/23 11:31 80 mg IV Administration STAT STA Sterile Water Confirm 02/03/23 14:08 Water For Injection,Sterile 10 Ml Vial Administered 02/03/23 14:09 Dose 10 ml IJ .STK-MED ONE Lab/Rad Data: Laboratory Result Diagrams 02/03/23 11:50 02/03/23 11:50 Laboratory Results 02/03/23 02/03/23 02/03/23 Range/Units 15:01 13:03 12:42 WBC (4.0-10.5) x10^3/uL RBC (4.1-5.4) x10^6/uL Hgb (12.0-16.0) g/dL Hct (35-47) % MCV (78-100) fL MCH (26-32) pg MCHC (32-36) g/dL RDW (11.5-14.0) % Plt Count (150-450) x10^3/uL MPV (7.5-11.0) fL Gran % (36.0-66.0) % Immature Gran % (Auto) (0.00-0.4) % Nucleat RBC Rel Count (0.00-0.1) % Eos # (Auto) (0-0.5) x10^3/uL Immature Gran # (Auto) (0.00-0.03) x10^3u/L Absolute Lymphs (auto) (1.0-4.6) x10^3/uL Absolute Monos (auto) (0.0-1.3) x10^3/uL Absolute Nucleated RBC (0.00-0.01) x10^3u/L Lymphocytes % (24.0-44.0) % Monocytes % (0.0-12.0) % Eosinophils % (0.00-5.0) % Basophils % (0.0-0.4) % Absolute Granulocytes (1.4-6.9) x10^3/uL Basophils # (0-0.4) x10^3/uL Puncture Site RIGHT BRACHIAL pCO2 46 H (35-45) mmHg pO2 175 H* (75-100) mmHg Base Excess 0.4 (-2.0-2.0) O2 Saturation 94.3 (94-100) g/dF ABG pH 7.36 (7.35-7.45) ABG HCO3 26.0 (22-28) ABG O2 Sat (Measured) 99.1 (95-100) % Azael Test NOT APPLICABLE A-a Gradient 481 a/A Ratio 0.27 Hemoglobin 8.6 Carboxyhemoglobin 3.5 (0.0-6.9) % THgb Methemoglobin 1.2 L (1.4-1.5) % Potassium 5.1 (3.5-5.1) Temperature 37.0 C POC O2 Flow Rate 100 % Vent Mode A/C Vent Rate 20 /MIN Tidal Volume 500 cc PEEP 10.0 cmH2O Sodium (137-145) mmol/L Chloride (98-107) mmol/L Carbon Dioxide (22-30) mmol/L Anion Gap (5-15) MEQ/L BUN (7-17) mg/dL Creatinine (0.52-1.04) mg/dL Estimated GFR ML/MIN Glucose (74-106) mg/dL Lactic Acid 0.8 (0.4-2.0) Calcium (8.4-10.2) mg/dL Total Bilirubin (0.2-1.3) mg/dL AST (14-36) U/L ALT (0-35) U/L Alkaline Phosphatase (38-126) U/L Creatine Kinase (30-135) U/L Troponin I (0.000-0.034) ng/mL NT-Pro-B Natriuret Pep (<300) pg/mL Serum Total Protein (6.3-8.2) g/dL Albumin (3.5-5.0) g/dL TSH 3rd Generation (0.47-4.68) mIU/L Urine Color (Yellow) Urine Appearance (Clear) Urine pH (4.6-8.0) Ur Specific [place] (1.005-1.030) Urine Protein (Negative) Urine Glucose (UA) (Negative) mg/dL Urine Ketones (Negative) Urine Blood (Negative) Urine Nitrite (Negative) Urine Bilirubin (Negative) Urine Urobilinogen (0.2) mg/dL Ur Leukocyte Esterase (Negative) Urine Microscopic RBC (0-5) /HPF Urine Microscopic WBC (0-5) /HPF Ur Epithelial Cells (None Seen) /HPF Urine Bacteria (None Seen) /HPF Urine Culture Reflexed (NO) Salicylates (2-20) mg/dL Urine Opiates Level (NEGATIVE) Ur Methadone (NEGATIVE) Acetaminophen (10-30) ug/ml Urine Barbiturates (NEGATIVE) Ur Phencyclidine (PCP) (NEGATIVE) Urine Amphetamine (NEGATIVE) U Benzodiazepine Level (NEGATIVE) Urine Cocaine (NEGATIVE) Urine Marijuana (THC) (NEGATIVE) Ethyl Alcohol (0-10) mg/dL Influenza Type A Ag NEGATIVE (NEGATIVE) Influenza Type B Ag NEGATIVE (NEGATIVE) RSV (PCR) NEGATIVE (NEGATIVE) SARS-CoV-2 (PCR) NEGATIVE (NEGATIVE) Slides for Path Review 02/03/23 02/03/23 02/03/23 Range/Units 12:41 11:51 11:51 WBC (4.0-10.5) x10^3/uL RBC (4.1-5.4) x10^6/uL Hgb (12.0-16.0) g/dL Hct (35-47) % MCV (78-100) fL MCH (26-32) pg MCHC (32-36) g/dL RDW (11.5-14.0) % Plt Count (150-450) x10^3/uL MPV (7.5-11.0) fL Gran % (36.0-66.0) % Immature Gran % (Auto) (0.00-0.4) % Nucleat RBC Rel Count (0.00-0.1) % Eos # (Auto) (0-0.5) x10^3/uL Immature Gran # (Auto) (0.00-0.03) x10^3u/L Absolute Lymphs (auto) (1.0-4.6) x10^3/uL Absolute Monos (auto) (0.0-1.3) x10^3/uL Absolute Nucleated RBC (0.00-0.01) x10^3u/L Lymphocytes % (24.0-44.0) % Monocytes % (0.0-12.0) % Eosinophils % (0.00-5.0) % Basophils % (0.0-0.4) % Absolute Granulocytes (1.4-6.9) x10^3/uL Basophils # (0-0.4) x10^3/uL Puncture Site LEFT RADIAL pCO2 36 (35-45) mmHg pO2 142 H* (75-100) mmHg Base Excess -2.2 L (-2.0-2.0) O2 Saturation 88.6 L (94-100) g/dF ABG pH 7.40 (7.35-7.45) ABG HCO3 22.3 (22-28) ABG O2 Sat (Measured) 99.1 (95-100) % Azael Test NOT APPLICABLE A-a Gradient 526 a/A Ratio 0.21 Hemoglobin 9.4 Carboxyhemoglobin 10.0 H* (0.0-6.9) % THgb Methemoglobin 0.6 L (1.4-1.5) % Potassium 5.8 H (3.5-5.1) Temperature 37.0 C POC O2 Flow Rate 100 % Vent Mode A/C Vent Rate /MIN Tidal Volume 500 cc PEEP cmH2O Sodium (137-145) mmol/L Chloride (98-107) mmol/L Carbon Dioxide (22-30) mmol/L Anion Gap (5-15) MEQ/L BUN (7-17) mg/dL Creatinine (0.52-1.04) mg/dL Estimated GFR ML/MIN Glucose (74-106) mg/dL Lactic Acid (0.4-2.0) Calcium (8.4-10.2) mg/dL Total Bilirubin (0.2-1.3) mg/dL AST (14-36) U/L ALT (0-35) U/L Alkaline Phosphatase (38-126) U/L Creatine Kinase 25 L (30-135) U/L Troponin I (0.000-0.034) ng/mL NT-Pro-B Natriuret Pep 3720 (<300) pg/mL Serum Total Protein (6.3-8.2) g/dL Albumin (3.5-5.0) g/dL TSH 3rd Generation 2.740 (0.47-4.68) mIU/L Urine Color (Yellow) Urine Appearance (Clear) Urine pH (4.6-8.0) Ur Specific [place] (1.005-1.030) Urine Protein (Negative) Urine Glucose (UA) (Negative) mg/dL Urine Ketones (Negative) Urine Blood (Negative) Urine Nitrite (Negative) Urine Bilirubin (Negative) Urine Urobilinogen (0.2) mg/dL Ur Leukocyte Esterase (Negative) Urine Microscopic RBC (0-5) /HPF Urine Microscopic WBC (0-5) /HPF Ur Epithelial Cells (None Seen) /HPF Urine Bacteria (None Seen) /HPF Urine Culture Reflexed (NO) Salicylates < 1.0 L (2-20) mg/dL Urine Opiates Level (NEGATIVE) Ur Methadone (NEGATIVE) Acetaminophen < 10 L (10-30) ug/ml Urine Barbiturates (NEGATIVE) Ur Phencyclidine (PCP) (NEGATIVE) Urine Amphetamine (NEGATIVE) U Benzodiazepine Level (NEGATIVE) Urine Cocaine (NEGATIVE) Urine Marijuana (THC) (NEGATIVE) Ethyl Alcohol < 10 (0-10) mg/dL Influenza Type A Ag (NEGATIVE) Influenza Type B Ag (NEGATIVE) RSV (PCR) (NEGATIVE) SARS-CoV-2 (PCR) (NEGATIVE) Slides for Path Review 02/03/23 02/03/23 02/03/23 Range/Units 11:50 11:50 11:50 WBC 13.9 H (4.0-10.5) x10^3/uL RBC 2.87 L (4.1-5.4) x10^6/uL Hgb 8.6 L (12.0-16.0) g/dL Hct 29.9 L (35-47) % MCV 104.2 H (78-100) fL MCH 30.0 (26-32) pg MCHC 28.8 L (32-36) g/dL RDW 16.5 H (11.5-14.0) % Plt Count 343 (150-450) x10^3/uL MPV 10.8 (7.5-11.0) fL Gran % 84.9 H (36.0-66.0) % Immature Gran % (Auto) 2.4 H (0.00-0.4) % Nucleat RBC Rel Count 0.1 (0.00-0.1) % Eos # (Auto) 0.02 (0-0.5) x10^3/uL Immature Gran # (Auto) 0.34 H (0.00-0.03) x10^3u/L Absolute Lymphs (auto) 0.94 L (1.0-4.6) x10^3/uL Absolute Monos (auto) 0.77 (0.0-1.3) x10^3/uL Absolute Nucleated RBC 0.02 H (0.00-0.01) x10^3u/L Lymphocytes % 6.7 L (24.0-44.0) % Monocytes % 5.5 (0.0-12.0) % Eosinophils % 0.1 (0.00-5.0) % Basophils % 0.4 (0.0-0.4) % Absolute Granulocytes 11.80 H (1.4-6.9) x10^3/uL Basophils # 0.06 (0-0.4) x10^3/uL Puncture Site pCO2 (35-45) mmHg pO2 (75-100) mmHg Base Excess (-2.0-2.0) O2 Saturation (94-100) g/dF ABG pH (7.35-7.45) ABG HCO3 (22-28) ABG O2 Sat (Measured) (95-100) % Azael Test A-a Gradient a/A Ratio Hemoglobin Carboxyhemoglobin (0.0-6.9) % THgb Methemoglobin (1.4-1.5) % Potassium 5.1 (3.5-5.1) Temperature C POC O2 Flow Rate % Vent Mode Vent Rate /MIN Tidal Volume cc PEEP cmH2O Sodium 139 (137-145) mmol/L Chloride 103 (98-107) mmol/L Carbon Dioxide 24 (22-30) mmol/L Anion Gap 17.5 H (5-15) MEQ/L BUN 40 H (7-17) mg/dL Creatinine 1.45 H (0.52-1.04) mg/dL Estimated GFR 37.4 ML/MIN Glucose 131 H (74-106) mg/dL Lactic Acid (0.4-2.0) Calcium 8.2 L (8.4-10.2) mg/dL Total Bilirubin 2.60 H (0.2-1.3) mg/dL AST 29 (14-36) U/L ALT 16 (0-35) U/L Alkaline Phosphatase 60 (38-126) U/L Creatine Kinase (30-135) U/L Troponin I 0.014 (0.000-0.034) ng/mL NT-Pro-B Natriuret Pep (<300) pg/mL Serum Total Protein 6.5 (6.3-8.2) g/dL Albumin 3.7 (3.5-5.0) g/dL TSH 3rd Generation (0.47-4.68) mIU/L Urine Color (Yellow) Urine Appearance (Clear) Urine pH (4.6-8.0) Ur Specific [place] (1.005-1.030) Urine Protein (Negative) Urine Glucose (UA) (Negative) mg/dL Urine Ketones (Negative) Urine Blood (Negative) Urine Nitrite (Negative) Urine Bilirubin (Negative) Urine Urobilinogen (0.2) mg/dL Ur Leukocyte Esterase (Negative) Urine Microscopic RBC (0-5) /HPF Urine Microscopic WBC (0-5) /HPF Ur Epithelial Cells (None Seen) /HPF Urine Bacteria (None Seen) /HPF Urine Culture Reflexed (NO) Salicylates (2-20) mg/dL Urine Opiates Level (NEGATIVE) Ur Methadone (NEGATIVE) Acetaminophen (10-30) ug/ml Urine Barbiturates (NEGATIVE) Ur Phencyclidine (PCP) (NEGATIVE) Urine Amphetamine (NEGATIVE) U Benzodiazepine Level (NEGATIVE) Urine Cocaine (NEGATIVE) Urine Marijuana (THC) (NEGATIVE) Ethyl Alcohol (0-10) mg/dL Influenza Type A Ag (NEGATIVE) Influenza Type B Ag (NEGATIVE) RSV (PCR) (NEGATIVE) SARS-CoV-2 (PCR) (NEGATIVE) Slides for Path Review YES 02/03/23 02/03/23 02/03/23 Range/Units 11:35 11:28 11:18 WBC (4.0-10.5) x10^3/uL RBC (4.1-5.4) x10^6/uL Hgb (12.0-16.0) g/dL Hct (35-47) % MCV (78-100) fL MCH (26-32) pg MCHC (32-36) g/dL RDW (11.5-14.0) % Plt Count (150-450) x10^3/uL MPV (7.5-11.0) fL Gran % (36.0-66.0) % Immature Gran % (Auto) (0.00-0.4) % Nucleat RBC Rel Count (0.00-0.1) % Eos # (Auto) (0-0.5) x10^3/uL Immature Gran # (Auto) (0.00-0.03) x10^3u/L Absolute Lymphs (auto) (1.0-4.6) x10^3/uL Absolute Monos (auto) (0.0-1.3) x10^3/uL Absolute Nucleated RBC (0.00-0.01) x10^3u/L Lymphocytes % (24.0-44.0) % Monocytes % (0.0-12.0) % Eosinophils % (0.00-5.0) % Basophils % (0.0-0.4) % Absolute Granulocytes (1.4-6.9) x10^3/uL Basophils # (0-0.4) x10^3/uL Puncture Site LEFT BRACHIAL RIGHT BRACHIAL pCO2 63 H* 56 H (35-45) mmHg pO2 82 47 L* (75-100) mmHg Base Excess -3.0 L -3.8 L (-2.0-2.0) O2 Saturation 87.7 L 67.8 L (94-100) g/dF ABG pH 7.21 L* 7.24 L* (7.35-7.45) ABG HCO3 25.2 24.0 (22-28) ABG O2 Sat (Measured) 97.4 75.5 L (95-100) % Azael Test NOT APPLICABLE NOT APPLICABLE A-a Gradient 552 596 a/A Ratio 0.13 0.07 Hemoglobin 8.9 10.8 Carboxyhemoglobin 9.5 H* 9.7 H* (0.0-6.9) % THgb Methemoglobin 0.6 L 0.5 L (1.4-1.5) % Potassium 5.1 5.6 H (3.5-5.1) Temperature 37.0 37.0 C POC O2 Flow Rate 100 100 % Vent Mode Vent Rate /MIN Tidal Volume cc PEEP cmH2O Sodium (137-145) mmol/L Chloride (98-107) mmol/L Carbon Dioxide (22-30) mmol/L Anion Gap (5-15) MEQ/L BUN (7-17) mg/dL Creatinine (0.52-1.04) mg/dL Estimated GFR ML/MIN Glucose (74-106) mg/dL Lactic Acid 1.7 3.1 H (0.4-2.0) Calcium (8.4-10.2) mg/dL Total Bilirubin (0.2-1.3) mg/dL AST (14-36) U/L ALT (0-35) U/L Alkaline Phosphatase (38-126) U/L Creatine Kinase (30-135) U/L Troponin I (0.000-0.034) ng/mL NT-Pro-B Natriuret Pep (<300) pg/mL Serum Total Protein (6.3-8.2) g/dL Albumin (3.5-5.0) g/dL TSH 3rd Generation (0.47-4.68) mIU/L Urine Color (Yellow) Urine Appearance (Clear) Urine pH (4.6-8.0) Ur Specific [place] (1.005-1.030) Urine Protein (Negative) Urine Glucose (UA) (Negative) mg/dL Urine Ketones (Negative) Urine Blood (Negative) Urine Nitrite (Negative) Urine Bilirubin (Negative) Urine Urobilinogen (0.2) mg/dL Ur Leukocyte Esterase (Negative) Urine Microscopic RBC (0-5) /HPF Urine Microscopic WBC (0-5) /HPF Ur Epithelial Cells (None Seen) /HPF Urine Bacteria (None Seen) /HPF Urine Culture Reflexed (NO) Salicylates (2-20) mg/dL Urine Opiates Level (NEGATIVE) Ur Methadone (NEGATIVE) Acetaminophen (10-30) ug/ml Urine Barbiturates (NEGATIVE) Ur Phencyclidine (PCP) (NEGATIVE) Urine Amphetamine (NEGATIVE) U Benzodiazepine Level (NEGATIVE) Urine Cocaine (NEGATIVE) Urine Marijuana (THC) (NEGATIVE) Ethyl Alcohol (0-10) mg/dL Influenza Type A Ag (NEGATIVE) Influenza Type B Ag (NEGATIVE) RSV (PCR) (NEGATIVE) SARS-CoV-2 (PCR) (NEGATIVE) Slides for Path Review 02/03/23 02/03/23 Range/Units 11:17 11:17 WBC (4.0-10.5) x10^3/uL RBC (4.1-5.4) x10^6/uL Hgb (12.0-16.0) g/dL Hct (35-47) % MCV (78-100) fL MCH (26-32) pg MCHC (32-36) g/dL RDW (11.5-14.0) % Plt Count (150-450) x10^3/uL MPV (7.5-11.0) fL Gran % (36.0-66.0) % Immature Gran % (Auto) (0.00-0.4) % Nucleat RBC Rel Count (0.00-0.1) % Eos # (Auto) (0-0.5) x10^3/uL Immature Gran # (Auto) (0.00-0.03) x10^3u/L Absolute Lymphs (auto) (1.0-4.6) x10^3/uL Absolute Monos (auto) (0.0-1.3) x10^3/uL Absolute Nucleated RBC (0.00-0.01) x10^3u/L Lymphocytes % (24.0-44.0) % Monocytes % (0.0-12.0) % Eosinophils % (0.00-5.0) % Basophils % (0.0-0.4) % Absolute Granulocytes (1.4-6.9) x10^3/uL Basophils # (0-0.4) x10^3/uL Puncture Site pCO2 (35-45) mmHg pO2 (75-100) mmHg Base Excess (-2.0-2.0) O2 Saturation (94-100) g/dF ABG pH (7.35-7.45) ABG HCO3 (22-28) ABG O2 Sat (Measured) (95-100) % Azael Test A-a Gradient a/A Ratio Hemoglobin Carboxyhemoglobin (0.0-6.9) % THgb Methemoglobin (1.4-1.5) % Potassium (3.5-5.1) Temperature C POC O2 Flow Rate % Vent Mode Vent Rate /MIN Tidal Volume cc PEEP cmH2O Sodium (137-145) mmol/L Chloride (98-107) mmol/L Carbon Dioxide (22-30) mmol/L Anion Gap (5-15) MEQ/L BUN (7-17) mg/dL Creatinine (0.52-1.04) mg/dL Estimated GFR ML/MIN Glucose (74-106) mg/dL Lactic Acid (0.4-2.0) Calcium (8.4-10.2) mg/dL Total Bilirubin (0.2-1.3) mg/dL AST (14-36) U/L ALT (0-35) U/L Alkaline Phosphatase (38-126) U/L Creatine Kinase (30-135) U/L Troponin I (0.000-0.034) ng/mL NT-Pro-B Natriuret Pep (<300) pg/mL Serum Total Protein (6.3-8.2) g/dL Albumin (3.5-5.0) g/dL TSH 3rd Generation (0.47-4.68) mIU/L Urine Color Yellow (Yellow) Urine Appearance Clear (Clear) Urine pH 5.0 (4.6-8.0) Ur Specific [place] 1.015 (1.005-1.030) Urine Protein 30 (Negative) Urine Glucose (UA) Negative (Negative) mg/dL Urine Ketones Negative (Negative) Urine Blood Negative (Negative) Urine Nitrite Negative (Negative) Urine Bilirubin Negative (Negative) Urine Urobilinogen 0.2 (0.2) mg/dL Ur Leukocyte Esterase Negative (Negative) Urine Microscopic RBC NONE SEEN (0-5) /HPF Urine Microscopic WBC NONE SEEN (0-5) /HPF Ur Epithelial Cells Rare (None Seen) /HPF Urine Bacteria None Seen (None Seen) /HPF Urine Culture Reflexed NO (NO) Salicylates (2-20) mg/dL Urine Opiates Level POSITIVE (NEGATIVE) Ur Methadone NEGATIVE (NEGATIVE) Acetaminophen (10-30) ug/ml Urine Barbiturates NEGATIVE (NEGATIVE) Ur Phencyclidine (PCP) NEGATIVE (NEGATIVE) Urine Amphetamine NEGATIVE (NEGATIVE) U Benzodiazepine Level NEGATIVE (NEGATIVE) Urine Cocaine NEGATIVE (NEGATIVE) Urine Marijuana (THC) NEGATIVE (NEGATIVE) Ethyl Alcohol (0-10) mg/dL Influenza Type A Ag (NEGATIVE) Influenza Type B Ag (NEGATIVE) RSV (PCR) (NEGATIVE) SARS-CoV-2 (PCR) (NEGATIVE) Slides for Path Review - Progress Progress: improved Progress Note: Elevated carboxyhemoglobin however patient is a smoker which would explain this elevated value. 02/03/23 12:[address] Bloom who advised transfer to outside hospital. We di scussed Dr. Bloom recommendations with family. Family [place] [facility] [place] 77-year-old female with history of COPD recently discharged from half-way back to her home. Patient was found by home health nurse unresponsive. Sister reports patient smoked after discharge from half-way. Upon arrival to our ED patient was unresponsive. She was being bagged by EMS services. Patient had coarse breath sounds bilaterally. Pupils equal round reactive bilaterally. Patient was intubated by respiratory therapy with Dr. Lopez on standby. Testing ordered include EKG, chest x-ray, CT chest, CT head, toxicology screen including acetaminophen level salicylate level alcohol level urine toxicology arterial blood gases x3. Blood cultures obtained. CBC CMP CK COVID test ordered. COVID-negative. Troponin ordered troponin negative. BNP negative. Urinalysis negative. Lactic acid within normal limits. Patient was intubated using etomidate and cecilia peroneum. Sedation was maintained using propofol with fentanyl for pain control. Normal saline infusing. Patient received DuoNeb and Solu-Medrol steroid. Antibiotic administered include vancomycin and Zosyn. On arrival to our ED patient was hypothermic at 97. Patient was placed on a Petrona hugger. Warmed IV fluids infused. Temperature monitored with temperature sensing Shah. Patient's body temperature increased to 99. We discontinued Petrona hugger and fluid warmer. Patient resting comfortably. Patient's ABG/gases are improving. DNR status discussed with sister. She states patient is a full code. She wants everything done to maintain the health of her sister. CT head reveals fluid in the posterior oropharynx. Findings suggestive of possible aspiration. Patient's presentation is likely due to acute respiratory failure. Failure may be in part due to COPD exacerbation/aspiration. Carboxyhemoglobin elevated at 9.5. However patient is a smoker. Leukocytosis of 13.9 administered. Patient has a megaloblastic anemia at 8.6. Lactic acid was 0.8. Opiates positive. However EMS administered Narcan upon ar [facility] to patient's home. Patient do not respond to Narcan administration. Patient's glucose upon EMS arrival was normal. TSH pending. Complexity of problems addressed is critical.. Patient required intubation. Patient's presentation/problem likely due to severe exacerbation of COPD/aspiration. Patient's presentation was life-threatening. Intubation required to stabilize patient and prevent further deterioration. Critical care time approximately 3 hours. Purpose for intubation was respiratory failure. . Complexity of data reviewed and analyzed is extensive. Laboratory tests EKG and imaging studies ordered. EKG independently interpreted by Dr. Lopez. ABG independently interpreted by Dr. Lopez. Due to patient's condition she could not serve as a historian. EMS and patient's sister served as independent historians. Discussion of management occurred with Dr. Bloom who advised transfer. Patient will be transferred to [facility] per family's request. Risk of complication and or morbidity/mortality patient management is high. She required monitoring hospitalization and nebulizer treatment. Discussion regarding DNR occurred for trajectory of ongoing patient management. Plan of care determined with sister based on shared decision making model. Vitals now stable.. Case discussed with Dr. Fernando Iqbal, ER physician at [facility] who accepts transfer. Dr. Iqbal advised to repeat gas prior to transfer. Repeat ABG ordered. 02/03/23 15:03 Repeat ABG shows PO2 175. we decreased O2 from 100% to 80% 02/03/23 15:32 Discussed with : Marianela Will see patient in: other Counseled pt/family regarding: lab results, diagnosis, rad results - Departure Departure Disposition: Transfer Clinical Impression: Hypothermia, Unresponsive state, Hypoxia, Hypercarbia, Acute respiratory failure, COPD exacerbation, Aspiration into airway Condition: Stable Critical Care Time: Yes Critical Care Time(excluding separately billable procedures): Critcal > 194 mins Referrals: JAIME CLAIRE [Primary Care Provider] - Follow up/PCP as directed Instructions: Chronic Obstructive Pulmonary Disease
[2023-02-03 12:05] LABS: Appearance Clear (Clear); Bilirubin Negative (Negative); Blood Negative (Negative); Glucose, Urine Negative (Negative); Ketones Negative (Negative); Leukocyte Esterase Negative (Negative); Nitrite Negative (Negative); Protein,Urine Dip 30 (Negative); Specific Gravity 1.015 (1.005-1.030); Urobilinogen 0.2 mg/dL (0.2)
[2023-02-03 12:13] LABS: Epithelial Cells Rare /HPF (None Seen); RBC NONE SEEN /HPF (0-5); WBC NONE SEEN /HPF (0-5)
[2023-02-03 12:14] LABS: ADD URINE CULTURE? NO (NO); Bacteria None Seen /HPF (None Seen)
[2023-02-03 12:15] LABS: ALBUMIN 3.7 g/dL (3.5-5.0); ANION GAP 17.5 MEQ/L (5-15); BILIRUBIN,TOTAL 2.6 mg/dL (0.2-1.3); Calcium 8.2 mg/dL (8.4-10.2); Creatinine 1 1.45 mg/dL (0.52-1.04); EST GLOMERULAR FILTRATION RATE 37.4 ML/MIN; Potassium 5.1 mmol/L (3.5-5.1); Total Protein 6.5 g/dL (6.3-8.2)
[2023-02-03 12:23] LABS: ACETAMINOPHEN < 10 ug/ml (10-30); CK-Creatinine Phosphokinase 25 U/L (30-135); ETHYL ALCOHOL < 10 mg/dL (0-10); NT PRO BNPII 3720 pg/mL (<300); SALICYLATE < 1.0 mg/dL (2-20)
--- NOTE | 2023-02-03 12:26 | XRAY ---
Indication: Unresponsive. Multiple contiguous images obtained through the head without contrast. Comparison: January 21, 2023 Again age-appropriate global atrophy and remote lacunar infarct right thalamus. No acute intracranial hemorrhage, abnormal extra-axial fluid collection, or mass effect. Fourth ventricle is midline without hydrocephalus. Bony calvarium intact. Visualized paranasal sinuses and mastoid air cells are clear. New fluid opacifies the naso-oropharynx. Impression: 1. Stable remote lacunar infarct right thalamus. 2. New fluid filled naso-oropharynx concerning for aspiration. Consider NG tube placement. 3. Remaining CT head without contrast exam is again negative.
[2023-02-03 12:32] LABS: Amphetamine,Urine NEGATIVE (NEGATIVE); Barbiturate,Urine NEGATIVE (NEGATIVE); Benzodiazepine,Urine NEGATIVE (NEGATIVE); Cocaine,Urine NEGATIVE (NEGATIVE); Methadone,Urine NEGATIVE (NEGATIVE); Opiate,Urine POSITIVE (NEGATIVE); PCP,Urine NEGATIVE (NEGATIVE); THC,Urine NEGATIVE (NEGATIVE)
--- NOTE | 2023-02-03 12:36 | XRAY ---
Indication: Unresponsive. Multiple contiguous axial images obtained through the chest using 100 cc Isovue 370 contrast and PE protocol. Comparison: December 27, 2022 Good opacification of the pulmonary arteries to include the lobar and segmental branches. Mild diffuse respiration artifact limits evaluation for pulmonary embolus. No obvious central pulmonary embolus. Heart and mediastinal structures now slightly translated to the right due to right lung volume loss. Heart not enlarged. Aorta remains moderately arteriosclerotic without aneurysm/dissection. New endotracheal tube tip 6 mm above hai and new NG tube tip traverses chest with tip in stomach.. Lungs demonstrate new near complete right lung atelectasis with small effusion greatest near the apex. New small left effusion with mild left lower lobe compressive atelectasis. Remaining lungs again demonstrates pulmonary emphysema. Bony thorax again demonstrate some osteopenia, minimal degenerative changes throughout the spine, and old manubrium fracture. Limited upper abdomen again demonstrates cholelithiasis, bilateral adrenal adenomas, and tiny hepatic/splenic calcified granulomas. Impression: 1. Respiration artifact limits evaluation for pulmonary embolus. No obvious pulmonary embolus. 2. New near complete right lung atelectasis with small bilateral effusions of uncertain etiology. Subsequent shift heart/mediastinal structures to the right.. 3. New endotracheal tube and NG tube in situ. 4. Again chronic findings including pulmonary emphysema, arteriosclerotic disease, chronic bony findings, cholelithiasis, bilateral adrenal adenomas, and old granulomatous disease.
[2023-02-03 12:43] LABS: A-aADO2 526; ABG HEMOGLOBIN 9.4; ABG POTASSIUM 5.8 (3.5-5.1); ARTERIAL BLD GAS O2 SATURATION 99.1 % (95-100); ARTERIAL BLD GAS TIDAL VOLUME 500 cc; ARTERIAL BLOOD GAS BASE EXCESS -2.2 (-2.0-2.0); ARTERIAL BLOOD GAS FIO2 100 %; ARTERIAL BLOOD GAS PCO2 36 mmHg (35-45); ARTERIAL BLOOD GAS PO2 142 mmHg (75-100); ARTERIAL BLOOD GAS VENT MODE A/C; HCO3- 22.3 (22-28); HGB O2 SAT 88.6 g/dF (94-100); Methhemoglobin 0.6 % (1.4-1.5); paO2 pAO1 0.21
[2023-02-03 12:44] LABS: ABG SITE LEFT RADIAL
[2023-02-03 12:47] LABS: BASOPHIL % 0.4 % (0.0-0.4); Basophil (Absolute #) 0.06 x10^3/uL (0-0.4); Eosinophil % 0.1 % (0.00-5.0); Eosinophil (Absolute #) 0.02 x10^3/uL (0-0.5); Hematocrit 29.9 % (35-47); Hemoglobin 8.6 g/dL (12.0-16.0); IMMATURE GRAN # 0.34 x10^3u/L (0.00-0.03); IMMATURE GRAN % 2.4 % (0.00-0.4); Lymphocyte (Absolute #) 0.94 x10^3/uL (1.0-4.6); Lymphocytes % 6.7 % (24.0-44.0); Mean Cell Volume 104.2 fL (78-100); Mean Corpuscular Hgb Concent. 28.8 g/dL (32-36); Mean Platelet Volume 10.8 fL (7.5-11.0); Monocyte (Absolute #) 0.77 x10^3/uL (0.0-1.3); Monocytes % 5.5 % (0.0-12.0); NUCLEATED RBC # 0.02 x10^3u/L (0.00-0.01); NUCLEATED RBC % 0.1 % (0.00-0.1); Neutrophil % 84.9 % (36.0-66.0); Platelet Count 343 x10^3/uL (150-450); Red Blood Count 2.87 x10^6/uL (4.1-5.4); Red Cell Distribution Width 16.5 % (11.5-14.0); White Blood Count 13.9 x10^3/uL (4.0-10.5)
[2023-02-03 13:34] LABS: Slide Review 1 YES
[2023-02-03 13:40] LABS: INFLUENZA A NEGATIVE (NEGATIVE); INFLUENZA B NEGATIVE (NEGATIVE); RESPIRATORY SYNCTIAL VIRUS NEGATIVE (NEGATIVE); SARS-CoV-2 Xpert Express NEGATIVE (NEGATIVE)
[2023-02-03] MEDS ORDERED: solu-MEDROL 125 MG, Sterile H2O 10 ml 2 ML IV ONE ×2 (14:04)
[2023-02-03] MEDS ORDERED: DUONEB 0.5-3 MG/3 ml Neb IH ONE (14:05)
[2023-02-03] MEDS ORDERED: PIPERACILLIN/TAZOBACTAM 3.375 GM in Sodium Chloride 100ML MINI-BAG PLUS 100 ML IV ONE (14:06)
[2023-02-03] MEDS ORDERED: VANCOMYCIN 1 GRAM/200 ML BAG 1 GM/200 ML PIGGYBACK IV ONE ×2 (14:06→14:08)
[2023-02-03] MEDS ORDERED: solu-MEDROL ONE (14:08)
[2023-02-03] MEDS ORDERED: Sterile H2O 10 ml IJ ONE (14:08)
[2023-02-03] MEDS ORDERED: Sodium Chloride 100ML MINI-BAG PLUS 100 ML IV ONE (14:11)
[2023-02-03] MEDS ORDERED: PIPERACILLIN/TAZOBACTAM IV ONE (14:11)
[2023-02-03 14:13] VITALS: O2SAT 100
[2023-02-03 15:17] LABS: A-aADO2 481; ABG HEMOGLOBIN 8.6; ABG POTASSIUM 5.1 (3.5-5.1); ARTERIAL BLD GAS O2 SATURATION 99.1 % (95-100); ARTERIAL BLD GAS TIDAL VOLUME 500 cc; ARTERIAL BLOOD GAS BASE EXCESS 0.4 (-2.0-2.0); ARTERIAL BLOOD GAS FIO2 100 %; ARTERIAL BLOOD GAS PCO2 46 mmHg (35-45); ARTERIAL BLOOD GAS PO2 175 mmHg (75-100); ARTERIAL BLOOD GAS VENT MODE A/C; ARTERIAL BLOOD GAS pH 7.36 (7.35-7.45); CARBOXYHEMOGLOBIN 3.5 % THgb (0.0-6.9); HGB O2 SAT 94.3 g/dF (94-100); Methhemoglobin 1.2 % (1.4-1.5); paO2 pAO1 0.27
[2023-02-03 15:18] LABS: ABG SITE RIGHT BRACHIAL; ARTERIAL BLOOD GAS VENT RATE 20 /MIN
[2023-02-03 15:29] VITALS: BP 119/49; PULSE 66
[2023-02-03 15:56] LABS: ABO TYPING O; Antibody Screen NEGATIVE (NEGATIVE); RH TYPING NEGATIVE
== END 2023-02-03 15:54 | disposition short-term general hospital (02) ==
LOC: ED 11:04
DX: J96.02 Acute respiratory failure with hypercapnia (principal); J96.01 Acute respiratory failure with hypoxia; Z72.0 Tobacco use; R40.4 Transient alteration of awareness; T68.XXXA Hypothermia, initial encounter; J44.1 Chronic obstructive pulmonary disease with (acute) exacerbation; T17.298A Other foreign object in pharynx causing other injury, initial encounter; E78.5 Hyperlipidemia, unspecified; I10 Essential (primary) hypertension; Z79.02 Long term (current) use of antithrombotics/antiplatelets; Z79.891 Long term (current) use of opiate analgesic; Z79.899 Other long term (current) drug therapy
CPT/HCPCS: 0241U; 31500; 36000; 36415; 36600; 51702; 70450; 71045; 71260; 80053; 80307; 81001; 82077; 82375; 82550; 82803; 83605; 83880; 84443; 84484; 85025; 86850; 86900; 86901; 87040; 93005; 93041; 94002; 94760; 94799; 96365; 96367; 96368; 96374; 96375; 99285; 99291; 99292; J2704; J2930; J3010; J3370

== ENCOUNTER 2023-02-25 11:05 | Observation (INO) | payer MEDICARE ==
--- NOTE | 2023-02-25 11:32 | ERPHSYRPT ---
- History of Present Illness Time Seen by Provider: 02/25/23 11:30 Source: patient Exam Limitations: no limitations Patient Subjective Stated Complaint: Patient sent to ER by [facility]. Staff from there did not call report to this ER. Medics bringing in patient from [facility] state patient is here for critical low hemoglobin but state that they are unsure of the exact lab value. Patient believes it is " 6. something." [facility] did send a facesheet and current medication list with patient. No lab values in paperwork sent by facility. Triage Nursing Assessment: Patient arrived by ambulance. She is alert and oriented X 4. No SOB noted but patient is wearing 02 @ 3L per n/c upon arrival; patient indicates she wears this at all times and this is not new. No cough. Skin is jaundices. Swelling noted to BLE and under both eyes. Various bruises noted to BUE and BLE. Physician History: Hilario Farr is a 78[facility] brought to the emergency room by EMS after nursing staff received blood work collected earlier today, showing a hemoglobin of 6.5. Patient was at this facility, and outpatient infusions, 4 days ago on 02/21/2023, with a hemoglobin of 6.8, and she received 1 unit of packed red blood cells at that time. Patient states that she feels weak all the time, lethargic, very sleepy, throughout the day. Denies any visible blood in her feces. Denies any abdominal pain, denies any nausea or vomiting. Patient was hospitalized at this facility on 01/24 after accidentally overdosing on her narcotics and being placed on life support, as she was found hypoxic and unresponsive, with an oxygen of 60%. Patient has a history of alcoholism, however she stopped drinking 7 years ago, at this time taking medications for peripheral neuropathy. She is on Plavix. Timing/Duration: today Severity: mild Associated Symptoms: malaise, weakness Allergies/Adverse Reactions: codeine Allergy (Verified 02/25/23 11:07) Home Medications: Clopidogrel Bisulfate [PLAVIX Tablet] 75 mg PO DAILY 07/15/15 [History] Gabapentin [Neurontin] 600 mg PO TID 07/15/15 [History] Amlodipine Besylate [Norvasc] 10 mg PO DAILY 11/30/22 [History] Aspirin EC 81 mg [Ecotrin 81 mg] 81 mg PO DAILY 11/30/22 [History] Carvedilol 12.5 mg [Coreg 12.5 mg] 12.5 mg PO BID 11/30/22 [History] Clonidine HCl 0.1 mg [Clonidine 0.1 mg Tablet] 0.2 mg PO BID 11/30/22 [History] Furosemide 20 mg [Lasix 20 mg] 20 mg PO DAILY 11/30/22 [History] Hydrocodone/Acetaminophen [Hydrocodone-Acetamin 10-325 mg] 1 each PO Q6H PRN PRN 11/30/22 [History] Pravastatin Sodium 40 mg PO HS 11/30/22 [History] Ropinirole HCl 0.5 mg [Requip 0.5 MG] 0.5 mg PO DAILY 11/30/22 [History] Nicotine 21 mg [Nicoderm CQ 21 MG] 21 mg TOP Q24H10 01/21/23 [History] Hx Tetanus, Diphtheria Vaccination/Date Given: Yes Hx Influenza Vaccination/Date Given: No Hx Pneumococcal Vaccination/Date Given: No Immunizations Up to Date: Yes Travel Risk - International Travel Have you traveled outside of the country in past 3 weeks: No - Coronavirus Screening Are you exhibiting any of the following symptoms?: No Close contact with a COVID-19 positive Pt in past 14-21 Days: No - Vaccine Status Have you recieved a Covid-19 vaccination: Yes Infection Control Specialist: Unknown - Vaccination Dates Dates if Unknown: 2020 - Review of Systems Constitutional: Fatigue, Lethargy, Weakness, No Fever, No Chills Eyes: No Symptoms Ears, Nose, & Throat: No Symptoms Respiratory: No Cough, No Dyspnea Cardiac: No Chest Pain, No Edema, No Syncope Abdominal/Gastrointestinal: No Abdominal Pain, No Nausea, No Vomiting, No Diarrhea Genitourinary Symptoms: No Dysuria Musculoskeletal: No Back Pain, No Neck Pain Skin: No Rash Neurological: No Dizziness, No Focal Weakness, No Sensory Changes Psychological: No Symptoms Endocrine: No Symptoms All Other Systems: Reviewed and Negative - Past Medical History Pertinent Past Medical History: Yes Neurological History: Peripheral Neuropathy ENT History: Cataracts Cardiac History: Coronary Artery Disease, High Cholesterol, Hypertension, Peripheral Vascular Disease Respiratory History: COPD, Pneumonia, Other Endocrine Medical History: No Pertinent History History: Renal Disease Other Medical History: pulmonary edema, chronic resp failure, anemia, hyperlipidemia, acute kindey failure, RLS, neuropathy - Past Surgical History Past Surgical History: Yes Female Surgical History: Lumpectomy, Other Other Surgical History: Left oophorectomy - Social History Smoking Status: Heavy tobacco smoker How long have you smoked: 21 y.o. Exposure to second hand smoke: Yes (not at this time) Drug Use: none Patient Lives Alone: No (Envive) - Nursing Vital Signs Nursing Vital Signs: Initial Vital Signs Temperature 98.5 F 02/25/23 11:07 Pulse Rate 62 02/25/23 11:07 Respiratory Rate 20 02/25/23 11:07 Blood Pressure 120/45 02/25/23 11:07 O2 Sat by Pulse Oximetry 98 02/25/23 11:07 Pain Scale Pain Intensity 0 - Physical Exam General Appearance: no apparent distress, alert Eye Exam: PERRL/EOMI, eyes nml inspection Ears, Nose, Throat Exam: normal ENT inspection, TMs normal, pharynx normal, moist mucous membranes Neck Exam: normal inspection, non-tender, supple, full range of motion Respiratory Exam: normal breath sounds, lungs clear, No respiratory distress Cardiovascular Exam: regular rate/rhythm, normal heart sounds, normal peripheral pulses, edema (bilateral lower extremities) Gastrointestinal/Abdomen Exam: soft, normal bowel sounds, No tenderness, No mass Back Exam: normal inspection, normal range of motion, No CVA tenderness, No vertebral tenderness Extremity Exam: normal inspection, normal range of motion, pelvis stable Neurologic Exam: alert, oriented x 3, cooperative, normal mood/affect, nml cerebellar function, nml station & gait, sensation nml, No motor deficits Skin Exam: normal color, warm, dry, other (chronic stasis skin changes), No rash Lymphatic Exam: No adenopathy SpO2 Interpretation: normal SpO2: 98 - Course Nursing assessment & vital signs reviewed: Yes Ordered Tests: Active Orders 24 hr Category Date Time Status CBC W DIFF Stat Lab 02/25/23 11:17 Completed CMP Stat Lab 02/25/23 11:17 Completed Ferritin Stat Lab 02/25/23 Ordered Folate (Folic Acid) Stat Lab 02/25/23 Ordered Occult Blood-Fecal Screen (Diagnostic) [OB-FECAL SCREEN Lab 02/25/23 Ordered ] Stat Peripheral Smear ordered Stat Lab 02/25/23 Ordered RETICULOCYTE PANEL Stat Lab 02/25/23 Ordered Vitamin B12 Stat Lab 02/25/23 Ordered Transfer Order Routine Transfer 02/25/23 Ordered Medication Summary Discontinued Medications Generic Name Dose Route Start Last Admin Trade Name Zeferino PRN Reason Stop Dose Admin Sodium Chloride Confirm 02/25/23 12:36 Sodium Chloride 0.9% 500 Ml Administered 02/25/23 12:37 Dose 500 mls @ ud IV .STK-MED ONE Pantoprazole Sodium 40 mg 02/25/23 15:38 Pantoprazole 40 Mg Vial IV 02/25/23 15:39 STAT ONE Lab/Rad Data: Laboratory Result Diagrams 02/25/23 11:17 02/25/23 11:17 Laboratory Results 02/25/23 02/25/23 02/25/23 Range/Units 11:17 11:17 11:17 WBC (4.0-10.5) x10^3/uL RBC (4.1-5.4) x10^6/uL Hgb (12.0-16.0) g/dL Hct (35-47) % MCV (78-100) fL MCH (26-32) pg MCHC (32-36) g/dL RDW (11.5-14.0) % Plt Count (150-450) x10^3/uL MPV (7.5-11.0) fL Gran % (36.0-66.0) % Immature Gran % (Auto) (0.00-0.4) % Nucleat RBC Rel Count (0.00-0.1) % Eos # (Auto) (0-0.5) x10^3/uL Immature Gran # (Auto) (0.00-0.03) x10^3u/L Absolute Lymphs (auto) (1.0-4.6) x10^3/uL Absolute Monos (auto) (0.0-1.3) x10^3/uL Absolute Nucleated RBC (0.00-0.01) x10^3u/L Lymphocytes % (24.0-44.0) % Monocytes % (0.0-12.0) % Eosinophils % (0.00-5.0) % Basophils % (0.0-0.4) % Absolute Granulocytes (1.4-6.9) x10^3/uL Basophils # (0-0.4) x10^3/uL Sodium 137 (137-145) mmol/L Potassium 5.3 H (3.5-5.1) mmol/L Chloride 98 (98-107) mmol/L Carbon Dioxide 32 H (22-30) mmol/L Anion Gap 11.9 (5-15) MEQ/L BUN 35 H (7-17) mg/dL Creatinine 1.06 H (0.52-1.04) mg/dL Estimated GFR 53.6 ML/MIN Glucose 114 H (74-106) mg/dL Calcium 8.9 (8.4-10.2) mg/dL Total Bilirubin 2.10 H (0.2-1.3) mg/dL AST 20 (14-36) U/L ALT 12 (0-35) U/L Alkaline Phosphatase 76 (38-126) U/L Serum Total Protein 6.2 L (6.3-8.2) g/dL Albumin 3.7 (3.5-5.0) g/dL ABO Group O Rh Factor NEGATIVE Antibody Screen NEGATIVE (NEGATIVE) Crossmatch COMPATIBLE COMPATIBLE (COMPATIBLE) 02/25/23 Range/Units 11:17 WBC 6.3 (4.0-10.5) x10^3/uL RBC 2.19 L (4.1-5.4) x10^6/uL Hgb 6.5 L* (12.0-16.0) g/dL Hct 22.0 L (35-47) % MCV 100.5 H (78-100) fL MCH 29.7 (26-32) pg MCHC 29.5 L (32-36) g/dL RDW 16.7 H (11.5-14.0) % Plt Count 190 (150-450) x10^3/uL MPV 10.9 (7.5-11.0) fL Gran % 71.5 H (36.0-66.0) % Immature Gran % (Auto) 0.5 H (0.00-0.4) % Nucleat RBC Rel Count 0.0 (0.00-0.1) % Eos # (Auto) 0.44 (0-0.5) x10^3/uL Immature Gran # (Auto) 0.03 (0.00-0.03) x10^3u/L Absolute Lymphs (auto) 0.88 L (1.0-4.6) x10^3/uL Absolute Monos (auto) 0.35 (0.0-1.3) x10^3/uL Absolute Nucleated RBC 0.00 (0.00-0.01) x10^3u/L Lymphocytes % 14.0 L (24.0-44.0) % Monocytes % 5.6 (0.0-12.0) % Eosinophils % 7.0 H (0.00-5.0) % Basophils % 1.4 (0.0-0.4) % Absolute Granulocytes 4.48 (1.4-6.9) x10^3/uL Basophils # 0.09 (0-0.4) x10^3/uL Sodium (137-145) mmol/L Potassium (3.5-5.1) mmol/L Chloride (98-107) mmol/L Carbon Dioxide (22-30) mmol/L Anion Gap (5-15) MEQ/L BUN (7-17) mg/dL Creatinine (0.52-1.04) mg/dL Estimated GFR ML/MIN Glucose (74-106) mg/dL Calcium (8.4-10.2) mg/dL Total Bilirubin (0.2-1.3) mg/dL AST (14-36) U/L ALT (0-35) U/L Alkaline Phosphatase (38-126) U/L Serum Total Protein (6.3-8.2) g/dL Albumin (3.5-5.0) g/dL ABO Group Rh Factor Antibody Screen (NEGATIVE) Crossmatch (COMPATIBLE) - Progress Progress: re-examined Progress Note: 15:30 - case discussed with Dr Claire, advised of the patient's presentation, findings, management so far, agreeable with admission to [facility]. Nehemias consult dr Castellanos, as patient's last EGD was 10 years ago (showing a gastric ulcer), and her last colonoscopy was 2 years ago (normal). Patient's Hb was 6.8gm/dl on 02/21, was transfused one unit of PRBC, and now, on return, just 4 days later, despite being transfused she returns with a Hb of 6.5gm/dl only, concern is that her hemoglobin is down-trending despite transfusions. The patient advised that she used to be on Folic acid and vitamin b12, but she stopped both. has a history of alcoholic peripheral neuropathy. 02/25/23 15:43 02/25/23 15:[address] Marianela Will see patient in: hospital (observation) Counseled pt/family regarding: lab results, diagnosis Medical Desision Making - Independent Historian Additional History obtained from: Relative/friend - External Record(s) Reviewed Records reviewed as a part of evaluation & management: Inpatient, Discharge Summary, [facility], EMS - Discussion of managment Care discussed with:: PCP (dr Ninfa Bloom) Reviewed:: Test results, Need for additional workup Agreed on:: Treatment plan Will see patient: in hospital - Diagnostic Testing Diagnostic test were ordered, analyzed, and reviewed by me: Yes - Departure Departure Disposition: Observation Clinical Impression: Anemia Qualifiers: Anemia type: unspecified type Qualified Code(s): D64.9 - Anemia, unspecified GI bleed Qualifiers: GI bleed type/associated pathology: unspecified gastrointestinal hemorrhage type Qualified Code(s): K92.2 - Gastrointestinal hemorrhage, unspecified Condition: Stable Critical Care Time: No Referrals: NINFA CLAIRE [Primary Care Provider] - Follow up/PCP as directed
[2023-02-25 11:33] LABS: Absolute Neutrophil Ct (ANC) 4.48 x10^3/uL (1.4-6.9); BASOPHIL % 1.4 % (0.0-0.4); Basophil (Absolute #) 0.09 x10^3/uL (0-0.4); Eosinophil (Absolute #) 0.44 x10^3/uL (0-0.5); IMMATURE GRAN # 0.03 x10^3u/L (0.00-0.03); IMMATURE GRAN % 0.5 % (0.00-0.4); Lymphocyte (Absolute #) 0.88 x10^3/uL (1.0-4.6); Mean Cell Volume 100.5 fL (78-100); Mean Corpuscular Hemoglobin 29.7 pg (26-32); Mean Corpuscular Hgb Concent. 29.5 g/dL (32-36); Mean Platelet Volume 10.9 fL (7.5-11.0); Monocyte (Absolute #) 0.35 x10^3/uL (0.0-1.3); Monocytes % 5.6 % (0.0-12.0); Neutrophil % 71.5 % (36.0-66.0); Platelet Count 190 x10^3/uL (150-450); Red Blood Count 2.19 x10^6/uL (4.1-5.4); Red Cell Distribution Width 16.7 % (11.5-14.0); White Blood Count 6.3 x10^3/uL (4.0-10.5)
[2023-02-25 11:38] LABS: Hemoglobin 6.5 g/dL (12.0-16.0)
[2023-02-25 11:39] LABS: ALBUMIN 3.7 g/dL (3.5-5.0); ANION GAP 11.9 MEQ/L (5-15); BILIRUBIN,TOTAL 2.1 mg/dL (0.2-1.3); Calcium 8.9 mg/dL (8.4-10.2); Creatinine 1 1.06 mg/dL (0.52-1.04); EST GLOMERULAR FILTRATION RATE 53.6 ML/MIN; Potassium 5.3 mmol/L (3.5-5.1); Total Protein 6.2 g/dL (6.3-8.2)
[2023-02-25 12:17] LABS: ABO TYPING O; Antibody Screen NEGATIVE (NEGATIVE); RH TYPING NEGATIVE
[2023-02-25 12:18] LABS: CROSS MATCH (PRBC) COMPATIBLE (COMPATIBLE)
[2023-02-25] MEDS ORDERED: Sodium Chloride 0.9% 500 ML 500 ML IV ONE (12:36)
[2023-02-25] MEDS ORDERED: PROTONIX 40 MG IV IV ONE ×2 (15:38→16:02)
[2023-02-25 15:47] LABS: RETICULOCYTE % 5.6 % (0.6-2.6)
[2023-02-25 16:02] LABS: INFLUENZA A NEGATIVE (NEGATIVE); INFLUENZA B NEGATIVE (NEGATIVE); RESPIRATORY SYNCTIAL VIRUS NEGATIVE (NEGATIVE); SARS-CoV-2 Xpert Express NEGATIVE (NEGATIVE)
[2023-02-25 16:03] LABS: Iron 66 ug/dL (37-170); Iron Saturation 24 % (20-39); TIBC 281 ug/dL (265-462)
[2023-02-25] MEDS ORDERED: Lasix 20 MG/2 ML IV STA (16:17)
[2023-02-25] MEDS ORDERED: Lasix 20 MG/2 ML ONE (16:19)
[2023-02-25 17:02] LABS: Folate (Folic Acid) 8.14 ng/mL (2.76 - >20)
[2023-02-25 18:32] LABS: Basophil 1 % (0.0-1.0); Eosinophil 10 % (0.00-3.0); Hypochromia 1+; Lymphocytes 13 % (24-44); Macrocytosis 1+; Microcytosis 1+; Monocyte 3 % (0.0-12.0); Neutrophils 73 % (36.0-66.0); Platelet Estimate NORMAL (NORMAL); Total Cells Counted 100
[2023-02-25 18:56] LABS: Hematocrit 28.2 % (35-47)
[2023-02-25 19:00] LABS: Hemoglobin 8.8 g/dL (12.0-16.0)
[2023-02-25 20:44] LABS: Hematocrit 26.8 % (35-47); Hemoglobin 8.2 g/dL (12.0-16.0)
[2023-02-25] MEDS: CLONIDINE 0.1 MG TABLET PO SCH (21:53)
[2023-02-25] MEDS: COREG 12.5 MG PO SCH (21:53)
[2023-02-25] MEDS: ZOCOR 20MG PO SCH (21:53)
[2023-02-25] MEDS: NEURONTIN PO SCH (21:53)
[2023-02-25] MEDS: Requip 0.5 MG PO SCH (22:00)
[2023-02-25] MEDS: HYDROCODONE-ACETAMIN 10-325 MG PO PRN (22:15)
[2023-02-25] MEDS: Nicoderm CQ 21 MG TOP SCH (23:36)
--- NOTE | 2023-02-26 05:56 | PCM.HP ---
History of Present Illness - Chief Complaint Chief Complaint: Anemia, GI bleed History of Present Illness: is a 78 year old female from local [facility] patient of Dr Bloom, sent to ER for low hemoglobin. has received transfusion, surgery to do EGD this am. she denies bloody stools or pain this morning. - Review of Systems Constitutional: No Fever, No Chills Respiratory: No Cough, No Short Of Breath Cardiac: No Chest Pain, No Edema, No Syncope Abdominal/Gastrointestinal: No Abdominal Pain, No Nausea, No Vomiting, No Diarrhea Medications & Allergies Home Medications: Home Medication List Clopidogrel Bisulfate [PLAVIX Tablet] 75 mg PO DAILY 07/15/15 [History Confirmed 02/25/23] Gabapentin [Neurontin] 600 mg PO TID 07/15/15 [History Confirmed 02/25/23] Hctz/Triamterene 25/37.5 mg [Maxzide 25MG] 1 tab PO DAILY #30 tab 07/15/15 [Rx Confirmed 02/25/23] Amlodipine Besylate [Norvasc] 10 mg PO DAILY 11/30/22 [History Confirmed 05/14] Aspirin EC 81 mg [Ecotrin 81 mg] 81 mg PO DAILY 11/30/22 [History Confirmed 02/25/23] Carvedilol 12.5 mg [Coreg 12.5 mg] 12.5 mg PO BID 11/30/22 [History Confirmed 02/25/23] Clonidine HCl 0.1 mg [Clonidine 0.1 mg Tablet] 0.2 mg PO BID 11/30/22 [History Confirmed 02/25/23] Furosemide 20 mg [Lasix 20 mg] 20 mg PO DAILY 11/30/22 [History Confirmed 02/25/23] Hydrocodone/Acetaminophen [Hydrocodone-Acetamin 10-325 mg] 1 each PO Q6H PRN PRN 11/30/22 [History Confirmed 02/25/23] Pravastatin Sodium 40 mg PO HS 11/30/22 [History Confirmed 02/25/23] Ropinirole HCl 0.5 mg [Requip 0.5 MG] 0.5 mg PO HS 11/30/22 [History Confirmed 02/25/23] Nicotine 21 mg [Nicoderm CQ 21 MG] 21 mg TOP Q24H10 01/21/23 [History Confirmed 02/25/23] Bisacodyl [Dulcolax] 10 mg RC DAILY PRN PRN 02/25/23 [History Confirmed 02/25/23] Allergies/Adverse Reactions: Allergies Allergy/AdvReac Type Severity Reaction Status Date / Time codeine Allergy Verified 02/25/23 11:07 - Past Medical History Past Medical History: Yes Neurological History: Peripheral Neuropathy ENT History: Cataracts Cardiac History: Coronary Artery Disease, High Cholesterol, Hypertension, Peripheral Vascular Disease Respiratory History: COPD, Pneumonia, Other Endocrine Medical History: No Pertinent History Musculoskelatal History: No Pertinent History GI Medical History: No Pertinent History History: Renal Disease Pyscho-Social History: Anxiety, Depression Reproductive Disorders: No Pertinent History Comment: pulmonary edema, chronic resp failure, anemia, hyperlipidemia, acute kindey failure, RLS, neuropathy - Female History Are you now?: No - Past Surgical History Past Surgical History: Yes Neuro Surgical History: No Pertinent History Cardiac History: No Pertinent History Respiratory Surgery: No Pertinent History GI Surgical History: Appendectomy Genitourinary Surgical Hx: No Pertinent History Female Surgical History: Lumpectomy, Other Other Surgical History: Left oophorectomy - Social History Smoking Status: Former smoker How long have you smoked: 21 y.o. Exposure to second hand smoke: Yes Alcohol: None Drug Use: none - Physical Exam Vital Signs: Vital Signs - 24 hr Temp Pulse Resp BP Pulse Ox 02/26/23 04:00 98.4 F 76 19 162/68 93 L 02/26/23 00:00 98.1 F 78 16 142/67 97 02/25/23 19:50 98.0 F 72 18 171/74 96 02/25/23 17:05 97.9 F 66 17 172/77 98 02/25/23 16:05 98 02/25/23 16:00 68 22 163/51 98 02/25/23 15:00 67 20 153/56 100 02/25/23 14:00 63 14 136/56 98 02/25/23 13:49 70 19 147/90 98 02/25/23 13:05 97.5 F 63 18 138/39 100 02/25/23 12:06 60 20 119/43 100 02/25/23 11:43 67 16 131/54 98 04/06/23 11:07 98.5 F 62 20 120/45 98 General Appearance: no apparent distress Neurologic Exam: alert, cooperative Respiratory Exam: normal breath sounds, lungs clear, No respiratory distress Cardiovascular Exam: regular rate/rhythm, normal heart sounds, normal peripheral pulses Gastrointestinal/Abdomen Exam: soft, normal bowel sounds, No tenderness, No mass Extremity Exam: normal inspection, normal range of motion, pelvis stable Skin Exam: normal color, warm, dry, No rash Results - Labs Lab/Micro Results: Lab Results-Last 24 Hours 02/25/23 02/25/23 02/25/23 Range/Units 11:17 11:17 11:17 WBC 6.3 (4.0-10.5) x10^3/uL RBC 2.19 L (4.1-5.4) x10^6/uL Hgb 6.5 L* (12.0-16.0) g/dL Hct 22.0 L (35-47) % MCV 100.5 H (78-100) fL MCH 29.7 (26-32) pg MCHC 29.5 L (32-36) g/dL RDW 16.7 H (11.5-14.0) % Plt Count 190 (150-450) x10^3/uL MPV 10.9 (7.5-11.0) fL Gran % 71.5 H (36.0-66.0) % Immature Gran % (Auto) 0.5 H (0.00-0.4) % Reticulocyte % (Auto) (0.6-2.6) % Nucleat RBC Rel Count 0.0 (0.00-0.1) % Eos # (Auto) 0.44 (0-0.5) x10^3/uL Immature Gran # (Auto) 0.03 (0.00-0.03) x10^3u/L Absolute Lymphs (auto) 0.88 L (1.0-4.6) x10^3/uL Absolute Monos (auto) 0.35 (0.0-1.3) x10^3/uL Absolute Nucleated RBC 0.00 (0.00-0.01) x10^3u/L Lymphocytes % 14.0 L (24.0-44.0) % Monocytes % 5.6 (0.0-12.0) % Eosinophils % 7.0 H (0.00-5.0) % Basophils % 1.4 (0.0-0.4) % Absolute Granulocytes 4.48 (1.4-6.9) x10^3/uL Segmented Neutrophils 73 H (36.0-66.0) % Lymphocytes (Manual) 13 L (24-44) % Monocytes (Manual) 3 (0.0-12.0) % Eosinophils (Manual) 10 H (0.00-3.0) % Basophils (Manual) 1 (0.0-1.0) % Basophils # 0.09 (0-0.4) x10^3/uL Hypochromia 1+ Platelet Estimate NORMAL (NORMAL) RBC Morphology ABNORMAL Microcytosis 1+ Macrocytosis 1+ Smear Path Review Pending Retic Hgb Content (28-38) pg Sodium 137 (137-145) mmol/L Potassium 5.3 H (3.5-5.1) mmol/L Chloride 98 (98-107) mmol/L Carbon Dioxide 32 H (22-30) mmol/L Anion Gap 11.9 (5-15) MEQ/L BUN 35 H (7-17) mg/dL Creatinine 1.06 H (0.52-1.04) mg/dL Estimated GFR 53.6 ML/MIN Glucose 114 H (74-106) mg/dL Calcium 8.9 (8.4-10.2) mg/dL Iron (37-170) ug/dL TIBC (265-462) ug/dL Iron Saturation (20-39) % Ferritin (11.1-264) ng/mL Total Bilirubin 2.10 H (0.2-1.3) mg/dL AST 20 (14-36) U/L ALT 12 (0-35) U/L Alkaline Phosphatase 76 (38-126) U/L Serum Total Protein 6.2 L (6.3-8.2) g/dL Albumin 3.7 (3.5-5.0) g/dL Vitamin B12 (239-931) pg/mL Folic Acid (2.76 - >20) ng/mL Influenza Type A Ag (NEGATIVE) Influenza Type B Ag (NEGATIVE) RSV (PCR) (NEGATIVE) SARS-CoV-2 (PCR) (NEGATIVE) ABO Group O Rh Factor NEGATIVE Antibody Screen NEGATIVE (NEGATIVE) Crossmatch COMPATIBLE (COMPATIBLE) 02/25/23 02/25/23 02/25/23 Range/Units 11:17 11:17 11:17 WBC (4.0-10.5) x10^3/uL RBC (4.1-5.4) x10^6/uL Hgb (12.0-16.0) g/dL Hct (35-47) % MCV (78-100) fL MCH (26-32) pg MCHC (32-36) g/dL RDW (11.5-14.0) % Plt Count (150-450) x10^3/uL MPV (7.5-11.0) fL Gran % (36.0-66.0) % Immature Gran % (Auto) (0.00-0.4) % Reticulocyte % (Auto) 5.6 H (0.6-2.6) % Nucleat RBC Rel Count (0.00-0.1) % Eos # (Auto) (0-0.5) x10^3/uL Immature Gran # (Auto) (0.00-0.03) x10^3u/L Absolute Lymphs (auto) (1.0-4.6) x10^3/uL Absolute Monos (auto) (0.0-1.3) x10^3/uL Absolute Nucleated RBC (0.00-0.01) x10^3u/L Lymphocytes % (24.0-44.0) % Monocytes % (0.0-12.0) % Eosinophils % (0.00-5.0) % Basophils % (0.0-0.4) % Absolute Granulocytes (1.4-6.9) x10^3/uL Segmented Neutrophils (36.0-66.0) % Lymphocytes (Manual) (24-44) % Monocytes (Manual) (0.0-12.0) % Eosinophils (Manual) (0.00-3.0) % Basophils (Manual) (0.0-1.0) % Basophils # (0-0.4) x10^3/uL Hypochromia Platelet Estimate (NORMAL) RBC Morphology Microcytosis Macrocytosis Smear Path Review Retic Hgb Content 34.0 (28-38) pg Sodium (137-145) mmol/L Potassium (3.5-5.1) mmol/L Chloride (98-107) mmol/L Carbon Dioxide (22-30) mmol/L Anion Gap (5-15) MEQ/L BUN (7-17) mg/dL Creatinine (0.52-1.04) mg/dL Estimated GFR ML/MIN Glucose (74-106) mg/dL Calcium (8.4-10.2) mg/dL Iron (37-170) ug/dL TIBC (265-462) ug/dL Iron Saturation (20-39) % Ferritin 254 (11.1-264) ng/mL Total Bilirubin (0.2-1.3) mg/dL AST (14-36) U/L ALT (0-35) U/L Alkaline Phosphatase (38-126) U/L Serum Total Protein (6.3-8.2) g/dL Albumin (3.5-5.0) g/dL Vitamin B12 281 (239-931) pg/mL Folic Acid 8.14 (2.76 - >20) ng/mL Influenza Type A Ag (NEGATIVE) Influenza Type B Ag (NEGATIVE) RSV (PCR) (NEGATIVE) SARS-CoV-2 (PCR) (NEGATIVE) ABO Group Rh Factor Antibody Screen (NEGATIVE) Crossmatch COMPATIBLE (COMPATIBLE) 02/25/23 02/25/23 02/25/23 Range/Units 11:17 18:50 20:40 WBC (4.0-10.5) x10^3/uL RBC (4.1-5.4) x10^6/uL Hgb 8.8 L D 8.2 L (12.0-16.0) g/dL Hct 28.2 L 26.8 L (35-47) % MCV (78-100) fL MCH (26-32) pg MCHC (32-36) g/dL RDW (11.5-14.0) % Plt Count (150-450) x10^3/uL MPV (7.5-11.0) fL Gran % (36.0-66.0) % Immature Gran % (Auto) (0.00-0.4) % Reticulocyte % (Auto) (0.6-2.6) % Nucleat RBC Rel Count (0.00-0.1) % Eos # (Auto) (0-0.5) x10^3/uL Immature Gran # (Auto) (0.00-0.03) x10^3u/L Absolute Lymphs (auto) (1.0-4.6) x10^3/uL Absolute Monos (auto) (0.0-1.3) x10^3/uL Absolute Nucleated RBC (0.00-0.01) x10^3u/L Lymphocytes % (24.0-44.0) % Monocytes % (0.0-12.0) % Eosinophils % (0.00-5.0) % Basophils % (0.0-0.4) % Absolute Granulocytes (1.4-6.9) x10^3/uL Segmented Neutrophils (36.0-66.0) % Lymphocytes (Manual) (24-44) % Monocytes (Manual) (0.0-12.0) % Eosinophils (Manual) (0.00-3.0) % Basophils (Manual) (0.0-1.0) % Basophils # (0-0.4) x10^3/uL Hypochromia Platelet Estimate (NORMAL) RBC Morphology Microcytosis Macrocytosis Smear Path Review Retic Hgb Content (28-38) pg Sodium (137-145) mmol/L Potassium (3.5-5.1) mmol/L Chloride (98-107) mmol/L Carbon Dioxide (22-30) mmol/L Anion Gap (5-15) MEQ/L BUN (7-17) mg/dL Creatinine (0.52-1.04) mg/dL Estimated GFR ML/MIN Glucose (74-106) mg/dL Calcium (8.4-10.2) mg/dL Iron 66 (37-170) ug/dL TIBC 281 (265-462) ug/dL Iron Saturation 24 (20-39) % Ferritin (11.1-264) ng/mL Total Bilirubin (0.2-1.3) mg/dL AST (14-36) U/L ALT (0-35) U/L Alkaline Phosphatase (38-126) U/L Serum Total Protein (6.3-8.2) g/dL Albumin (3.5-5.0) g/dL Vitamin B12 (239-931) pg/mL Folic Acid (2.76 - >20) ng/mL Influenza Type A Ag (NEGATIVE) Influenza Type B Ag (NEGATIVE) RSV (PCR) (NEGATIVE) SARS-CoV-2 (PCR) (NEGATIVE) ABO Group Rh Factor Antibody Screen (NEGATIVE) Crossmatch (COMPATIBLE) 02/25/23 Range/Units Unknown WBC (4.0-10.5) x10^3/uL RBC (4.1-5.4) x10^6/uL Hgb (12.0-16.0) g/dL Hct (35-47) % MCV (78-100) fL MCH (26-32) pg MCHC (32-36) g/dL RDW (11.5-14.0) % Plt Count (150-450) x10^3/uL MPV (7.5-11.0) fL Gran % (36.0-66.0) % Immature Gran % (Auto) (0.00-0.4) % Reticulocyte % (Auto) (0.6-2.6) % Nucleat RBC Rel Count (0.00-0.1) % Eos # (Auto) (0-0.5) x10^3/uL Immature Gran # (Auto) (0.00-0.03) x10^3u/L Absolute Lymphs (auto) (1.0-4.6) x10^3/uL Absolute Monos (auto) (0.0-1.3) x10^3/uL Absolute Nucleated RBC (0.00-0.01) x10^3u/L Lymphocytes % (24.0-44.0) % Monocytes % (0.0-12.0) % Eosinophils % (0.00-5.0) % Basophils % (0.0-0.4) % Absolute Granulocytes (1.4-6.9) x10^3/uL Segmented Neutrophils (36.0-66.0) % Lymphocytes (Manual) (24-44) % Monocytes (Manual) (0.0-12.0) % Eosinophils (Manual) (0.00-3.0) % Basophils (Manual) (0.0-1.0) % Basophils # (0-0.4) x10^3/uL Hypochromia Platelet Estimate (NORMAL) RBC Morphology Microcytosis Macrocytosis Smear Path Review Retic Hgb Content (28-38) pg Sodium (137-145) mmol/L Potassium (3.5-5.1) mmol/L Chloride (98-107) mmol/L Carbon Dioxide (22-30) mmol/L Anion Gap (5-15) MEQ/L BUN (7-17) mg/dL Creatinine (0.52-1.04) mg/dL Estimated GFR ML/MIN Glucose (74-106) mg/dL Calcium (8.4-10.2) mg/dL Iron (37-170) ug/dL TIBC (265-462) ug/dL Iron Saturation (20-39) % Ferritin (11.1-264) ng/mL Total Bilirubin (0.2-1.3) mg/dL AST (14-36) U/L ALT (0-35) U/L Alkaline Phosphatase (38-126) U/L Serum Total Protein (6.3-8.2) g/dL Albumin (3.5-5.0) g/dL Vitamin B12 (239-931) pg/mL Folic Acid (2.76 - >20) ng/mL Influenza Type A Ag NEGATIVE (NEGATIVE) Influenza Type B Ag NEGATIVE (NEGATIVE) RSV (PCR) NEGATIVE (NEGATIVE) SARS-CoV-2 (PCR) NEGATIVE (NEGATIVE) ABO Group Rh Factor Antibody Screen (NEGATIVE) Crossmatch (COMPATIBLE) Assessment/Plan (1) Anemia Current Visit: Yes Status: Acute Qualifiers: Anemia type: unspecified type Qualified Code(s): D64.9 - Anemia, unspecified Assessment & Plan: surgery to perform EGD ,hemoglobin was over 8 last evening after transfusion. will repeat at this time Code(s): D64.9 - ANEMIA, UNSPECIFIED (2) GI bleed Current Visit: Yes Status: Acute Qualifiers: GI bleed type/associated pathology: unspecified gastrointestinal hemorrhage type Qualified Code(s): K92.2 - Gastrointestinal hemorrhage, unspecified Code(s): K92.2 - GASTROINTESTINAL HEMORRHAGE, UNSPECIFIED
[2023-02-26] MEDS ORDERED: Dulcolax 10 MG SUPP RC PRN (07:34)
[2023-02-26 07:35] LABS: Absolute Neutrophil Ct (ANC) 3.55 x10^3/uL (1.4-6.9); BASOPHIL % 1.4 % (0.0-0.4); Basophil (Absolute #) 0.09 x10^3/uL (0-0.4); Eosinophil (Absolute #) 0.45 x10^3/uL (0-0.5); Hematocrit 29.5 % (35-47); Hemoglobin 8.9 g/dL (12.0-16.0); IMMATURE GRAN # 0.03 x10^3u/L (0.00-0.03); IMMATURE GRAN % 0.5 % (0.00-0.4); Lymphocyte (Absolute #) 1.87 x10^3/uL (1.0-4.6); Mean Cell Volume 96.7 fL (78-100); Mean Corpuscular Hemoglobin 29.2 pg (26-32); Mean Corpuscular Hgb Concent. 30.2 g/dL (32-36); Monocyte (Absolute #) 0.45 x10^3/uL (0.0-1.3); Neutrophil % 55.1 % (36.0-66.0); Platelet Count 188 x10^3/uL (150-450); Red Blood Count 3.05 x10^6/uL (4.1-5.4); Red Cell Distribution Width 18.4 % (11.5-14.0); White Blood Count 6.4 x10^3/uL (4.0-10.5)
[2023-02-26] MEDS ORDERED: Golytely Solution 4000 ML PO ONE (08:37)
[2023-02-26] MEDS ORDERED: NON-FORMULARY ITEM (Amlodipine Besylate [Norvasc] 10 MG Tablet) PO SCH (10:00)
[2023-02-26] MEDS: NORVASC 5 MG PO SCH (10:10)
[2023-02-26] MEDS: CLONIDINE 0.1 MG TABLET PO SCH ×2 (10:10→23:14)
[2023-02-26] MEDS: Maxzide-25MG Tablet PO SCH (10:10)
[2023-02-26] MEDS: COREG 12.5 MG PO SCH ×2 (10:10→20:29)
[2023-02-26] MEDS: LASIX 20 MG PO SCH (10:12)
[2023-02-26] MEDS: NEURONTIN PO SCH ×3 (10:12→20:29)
[2023-02-26] MEDS: Lactated Ringers 1,000 ML IV SCH (15:35)
[2023-02-26] MEDS ORDERED: DIPRIVAN 200 MG/20 ML IV ONE (16:14)
[2023-02-26] MEDS ORDERED: Xylocaine-Mpf 2% 5 Ml Vial ONE (16:14)
[2023-02-26] MEDS: Requip 0.5 MG PO SCH (20:29)
[2023-02-26] MEDS: ZOCOR 20MG PO SCH (20:29)
[2023-02-26] MEDS: Nicoderm CQ 21 MG TOP SCH (20:29)
[2023-02-26] MEDS: HYDROCODONE-ACETAMIN 10-325 MG PO PRN (20:32)
[2023-02-27 08:23] LABS: Absolute Neutrophil Ct (ANC) 2.73 x10^3/uL (1.4-6.9); BASOPHIL % 0.8 % (0.0-0.4); Basophil (Absolute #) 0.04 x10^3/uL (0-0.4); Eosinophil % 7.4 % (0.00-5.0); Eosinophil (Absolute #) 0.37 x10^3/uL (0-0.5); Hematocrit 28.1 % (35-47); Hemoglobin 8.5 g/dL (12.0-16.0); IMMATURE GRAN # 0.01 x10^3u/L (0.00-0.03); IMMATURE GRAN % 0.2 % (0.00-0.4); Lymphocyte (Absolute #) 1.49 x10^3/uL (1.0-4.6); Lymphocytes % 29.8 % (24.0-44.0); Mean Cell Volume 97.9 fL (78-100); Mean Corpuscular Hemoglobin 29.6 pg (26-32); Mean Corpuscular Hgb Concent. 30.2 g/dL (32-36); Mean Platelet Volume 9.5 fL (7.5-11.0); Monocyte (Absolute #) 0.36 x10^3/uL (0.0-1.3); Monocytes % 7.2 % (0.0-12.0); Neutrophil % 54.6 % (36.0-66.0); Platelet Count 168 x10^3/uL (150-450); Red Blood Count 2.87 x10^6/uL (4.1-5.4); Red Cell Distribution Width 17.4 % (11.5-14.0)
--- NOTE | 2023-02-27 08:31 | PCM.NOTE ---
Date and Time: 02/27/23827 Subjective Assessment: patient has no complaints, feels better after transfusion. denies abd pain, no blood in her stools. she had egd with no significant findings ,she refused the colonoscopy Objective Exam General Appearance: no apparent distress Neurologic Exam: alert, oriented x 3 Respiratory Exam: normal breath sounds, lungs clear, No respiratory distress Cardiovascular Exam: regular rate/rhythm, normal heart sounds Gastrointestinal/Abdomen Exam: soft, No tenderness, No mass OBJECTIVE DATA Vital Signs: Vital Signs - 24 hr Temp Pulse Resp BP Pulse Ox 02/27/23 07:52 92 L 02/27/23 07:06 97.7 F 60 17 162/71 92 L 02/27/23 04:00 97.7 F 64 20 169/72 92 L 02/26/23 23:15 97.5 F 60 20 135/64 93 L 02/26/23 20:00 96.8 F 67 20 138/67 93 L 02/26/23 16:08 97.9 F 62 16 164/67 97 02/26/23 15:51 97.9 F 62 16 164/67 97 02/26/23 11:15 97.7 F 83 18 159/69 93 L Pain Assessment - Last Documented Pain Intensity 5 Pain Scale Used [facility] Intake and Output: Intake & Output 02/24/23 02/25/23 02/26/23 02/27/23 11:59 11:59 11:59 11:59 Intake Total 250 1640 Output Total 1700 400 Balance -1450 1240 Weight 81 kg 77.2 kg 77.2 kg Lab Results: Lab Results-Last 24 Hours 02/26/23 02/27/23 Range/Units 07:16 08:18 WBC 5.0 (4.0-10.5) x10^3/uL RBC 2.87 L (4.1-5.4) x10^6/uL Hgb 8.5 L (12.0-16.0) g/dL Hct 28.1 L (35-47) % MCV 97.9 (78-100) fL MCH 29.6 (26-32) pg MCHC 30.2 L (32-36) g/dL RDW 17.4 H (11.5-14.0) % Plt Count 168 (150-450) x10^3/uL MPV 9.5 (7.5-11.0) fL Gran % 54.6 (36.0-66.0) % Immature Gran % (Auto) 0.2 (0.00-0.4) % Nucleat RBC Rel Count 0.0 (0.00-0.1) % Eos # (Auto) 0.37 (0-0.5) x10^3/uL Immature Gran # (Auto) 0.01 (0.00-0.03) x10^3u/L Absolute Lymphs (auto) 1.49 (1.0-4.6) x10^3/uL Absolute Monos (auto) 0.36 (0.0-1.3) x10^3/uL Absolute Nucleated RBC 0.00 (0.00-0.01) x10^3u/L Lymphocytes % 29.8 (24.0-44.0) % Monocytes % 7.2 (0.0-12.0) % Eosinophils % 7.4 H (0.00-5.0) % Basophils % 0.8 (0.0-0.4) % Absolute Granulocytes 2.73 (1.4-6.9) x10^3/uL Basophils # 0.04 (0-0.4) x10^3/uL Sodium Cancelled Potassium Cancelled Chloride Cancelled Carbon Dioxide Cancelled Anion Gap Cancelled BUN Cancelled Creatinine Cancelled Estimated GFR Cancelled Glucose Cancelled Calcium Cancelled Multi-Disciplinary Progress Notes: Multi-Disciplinary Progress Notes 02/26/23 11:27 Case Management Note by Abimbola Shell/Charlene RAO AT [facility]- PATIENT DOES NOT REQUIRE A PRECERT TO RETURN TO THEIR FACILITY. SHE CAN COME AT ANY TIME WHEN SHE IS MEDICALLY READY. CLINICAL UPDATE FAXED TO THEM AT THIS TIME Initialized on 02/26/23 11:27 - END OF NOTE Assessment/Plan (1) Anemia Current Visit: Yes Status: Acute Qualifiers: Anemia type: unspecified type Qualified Code(s): D64.9 - Anemia, uns pecified Assessment & Plan: egd with no obvious source of bleeding, repeat cbc this am, she is on PPI therapy. she refused colonoscopy so if h/h continues to fall she will likely need to reconsider. otherwise could return to [facility] and complete workup outpatient if her blood count holds stable Code(s): D64.9 - ANEMIA, UNSPECIFIED (2) GI bleed Current Visit: Yes Status: Acute Qualifiers: GI bleed type/associated pathology: unspecified gastrointestinal hemorrhage type Qualified Code(s): K92.2 - Gastrointestinal hemorrhage, unspecified Code(s): K92.2 - GASTROINTESTINAL HEMORRHAGE, UNSPECIFIED
[2023-02-27] MEDS: CLONIDINE 0.1 MG TABLET PO SCH ×2 (09:04→22:59)
[2023-02-27] MEDS: Maxzide-25MG Tablet PO SCH (09:04)
[2023-02-27] MEDS: NORVASC 5 MG PO SCH (09:04)
[2023-02-27] MEDS: NEURONTIN PO SCH ×3 (09:04→21:20)
[2023-02-27] MEDS: COREG 12.5 MG PO SCH ×2 (09:05→21:19)
[2023-02-27] MEDS: LASIX 20 MG PO SCH (09:05)
[2023-02-27] MEDS: PROTONIX 40 MG IV IV SCH (09:33)
[2023-02-27] MEDS: Requip 0.5 MG PO SCH (21:20)
[2023-02-27] MEDS: ZOCOR 20MG PO SCH (21:20)
[2023-02-27] MEDS: Nicoderm CQ 21 MG TOP SCH (21:20)
[2023-02-27] MEDS: HYDROCODONE-ACETAMIN 10-325 MG PO PRN (21:21)
[2023-02-28 05:52] LABS: Absolute Neutrophil Ct (ANC) 2.57 x10^3/uL (1.4-6.9); BASOPHIL % 1.2 % (0.0-0.4); Basophil (Absolute #) 0.06 x10^3/uL (0-0.4); Eosinophil % 9.1 % (0.00-5.0); Eosinophil (Absolute #) 0.46 x10^3/uL (0-0.5); Hematocrit 27.1 % (35-47); Hemoglobin 8.3 g/dL (12.0-16.0); IMMATURE GRAN # 0.01 x10^3u/L (0.00-0.03); IMMATURE GRAN % 0.2 % (0.00-0.4); Lymphocyte (Absolute #) 1.63 x10^3/uL (1.0-4.6); Lymphocytes % 32.3 % (24.0-44.0); Mean Cell Volume 97.5 fL (78-100); Mean Corpuscular Hemoglobin 29.9 pg (26-32); Mean Corpuscular Hgb Concent. 30.6 g/dL (32-36); Mean Platelet Volume 10.1 fL (7.5-11.0); Monocyte (Absolute #) 0.32 x10^3/uL (0.0-1.3); Monocytes % 6.3 % (0.0-12.0); Neutrophil % 50.9 % (36.0-66.0); Platelet Count 187 x10^3/uL (150-450); Red Blood Count 2.78 x10^6/uL (4.1-5.4); Red Cell Distribution Width 17.4 % (11.5-14.0); White Blood Count 5.1 x10^3/uL (4.0-10.5)
[2023-02-28 06:07] LABS: ALBUMIN 3.5 g/dL (3.5-5.0); ANION GAP 7.7 MEQ/L (5-15); Calcium 8.3 mg/dL (8.4-10.2); Creatinine 1 1.3 mg/dL (0.52-1.04); EST GLOMERULAR FILTRATION RATE 42.3 ML/MIN; Potassium 4.8 mmol/L (3.5-5.1); Total Protein 6.2 g/dL (6.3-8.2)
[2023-02-28] MEDS: Lactated Ringers 1,000 ML IV SCH (07:22)
--- NOTE | 2023-02-28 07:31 | PCM.DS ---
Discharge Summary Date of Admission: 02/25/23 16:55 Admitting Physician: JAIME CLAIRE Consults: Consults on Case 02/25/23 17:03 Consult Surgery ROUTINE Primary Care Provider: JAIME CLAIRE Allergies Allergies codeine Allergy (Verified 02/25/23 11:07) Hospital Summary - Hospital Course Hospital Course: patient admitted with symptomatic anemia, she was transfused and her h/h has been stable with no bleeding since then. egd was unremarkable, she refused colonoscopy - Vitals & Intake/Output Vital Signs: Vital Signs Temperature 97.9 F 02/28/23 03:56 Pulse Rate 67 02/28/23 03:56 Respiratory Rate 20 02/28/23 03:56 Blood Pressure 164/68 02/28/23 03:56 O2 Sat by Pulse Oximetry 95 02/28/23 03:56 Intake & Output: Intake & Output 02/25/23 02/26/23 02/27/23 02/28/23 11:59 11:59 11:59 11:59 Intake Total 250 1760 1480 Output Total 1700 400 Balance -1450 1360 1480 Weight 81 kg 77.2 kg 77.2 kg - Lab Result Diagrams: 02/28/23 05:38 02/28/23 05:38 Lab Results-Last 24 Hrs: Lab Results-Last 24 Hours 02/27/23 02/28/23 02/28/23 Range/Units 08:18 05:38 05:38 WBC 5.0 5.1 (4.0-10.5) x10^3/uL RBC 2.87 L 2.78 L (4.1-5.4) x10^6/uL Hgb 8.5 L 8.3 L (12.0-16.0) g/dL Hct 28.1 L 27.1 L (35-47) % MCV 97.9 97.5 (78-100) fL MCH 29.6 29.9 (26-32) pg MCHC 30.2 L 30.6 L (32-36) g/dL RDW 17.4 H 17.4 H (11.5-14.0) % Plt Count 168 187 (150-450) x10^3/uL MPV 9.5 10.1 (7.5-11.0) fL Gran % 54.6 50.9 (36.0-66.0) % Immature Gran % (Auto) 0.2 0.2 (0.00-0.4) % Nucleat RBC Rel Count 0.0 0.0 (0.00-0.1) % Eos # (Auto) 0.37 0.46 (0-0.5) x10^3/uL Immature Gran # (Auto) 0.01 0.01 (0.00-0.03) x10^3u/L Absolute Lymphs (auto) 1.49 1.63 (1.0-4.6) x10^3/uL Absolute Monos (auto) 0.36 0.32 (0.0-1.3) x10^3/uL Absolute Nucleated RBC 0.00 0.00 (0.00-0.01) x10^3u/L Lymphocytes % 29.8 32.3 (24.0-44.0) % Monocytes % 7.2 6.3 (0.0-12.0) % Eosinophils % 7.4 H 9.1 H (0.00-5.0) % Basophils % 0.8 1.2 (0.0-0.4) % Absolute Granulocytes 2.73 2.57 (1.4-6.9) x10^3/uL Basophils # 0.04 0.06 (0-0.4) x10^3/uL Sodium 138 (137-145) mmol/L Potassium 4.8 (3.5-5.1) mmol/L Chloride 99 (98-107) mmol/L Carbon Dioxide 36 H (22-30) mmol/L Anion Gap 7.7 (5-15) MEQ/L BUN 40 H (7-17) mg/dL Creatinine 1.30 H (0.52-1.04) mg/dL Estimated GFR 42.3 ML/MIN Glucose 97 (74-106) mg/dL Calcium 8.3 L (8.4-10.2) mg/dL Total Bilirubin 2.00 H (0.2-1.3) mg/dL AST 19 (14-36) U/L ALT 10 (0-35) U/L Alkaline Phosphatase 68 (38-126) U/L Serum Total Protein 6.2 L (6.3-8.2) g/dL Albumin 3.5 (3.5-5.0) g/dL - Procedures and Test Procedures and Tests throughout Hospitalization: Therapy Orders & Screens 02/26/23 07:09 Oxygen Nasal Cannula 3 lpm Comment: Diagnosis: Anemia, GI bleed Discharge Exam General Appearance: no apparent distress Neurologic Exam: alert, cooperative Respiratory Exam: normal breath sounds, lungs clear, No respiratory distress Cardiovascular Exam: regular rate/rhythm, normal heart sounds Gastrointestinal/Abdomen Exam: soft, No tenderness, No mass Extremity Exam: normal inspection, normal range of motion Final Diagnosis/Problem List - Final Discharge Diagnosis/Problem (1) Anemia Current Visit: Yes Status: Acute Assessment & Plan: currently stable h/h, will continue PPI. egd was unremarkable, patient refused colonoscopy. she can see hematology as an outpatient after discharge, return to [facility] at this time Code(s): D64.9 - ANEMIA, UNSPECIFIED (2) GI bleed Current Visit: Yes Status: Acute Code(s): K92.2 - GASTROINTESTINAL HEMORRHAGE, UNSPECIFIED - Discharge Disposition: Home, Self-Care Condition: Stable Prescriptions: New PANTOPRAZOLE 40 mg Tablet [Protonix 40MG Tablet] 40 mg PO QPM #30 tab Continue Gabapentin [Neurontin] 600 mg PO TID Hctz/Triamterene 25/37.5 mg [Maxzide 25MG] 1 tab PO DAILY #30 tab Pravastatin Sodium 40 mg PO HS Ropinirole HCl 0.5 mg [Requip 0.5 MG] 0.5 mg PO HS Amlodipine Besylate [Norvasc] 10 mg PO DAILY Carvedilol 12.5 mg [Coreg 12.5 mg] 12.5 mg PO BID Furosemide 20 mg [Lasix 20 mg] 20 mg PO DAILY Clonidine HCl 0.1 mg [Clonidine 0.1 mg Tablet] 0.2 mg PO BID Hydrocodone/Acetaminophen [Hydrocodone-Acetamin 10-325 mg] 1 each PO Q6H PRN PRN PRN Reason: Pain Nicotine 21 mg [Nicoderm CQ 21 MG] 21 mg TOP Q24H10 Bisacodyl [Dulcolax] 10 mg RC DAILY PRN PRN PRN Reason: Constipation Discontinued Clopidogrel Bisulfate [PLAVIX Tablet] 75 mg PO DAILY Aspirin EC 81 mg [Ecotrin 81 mg] 81 mg PO DAILY Outpatient Orders: CBC W DIFF Time Frame: 03/03/23, Facility: [facility], Location: LABORATORY Additional Instructions: check cbc on wednesday, hold aspirin and plavix, start protonix. schedule to see Dr Cannon as outpatient Follow up with: JAIME CLAIRE [Primary Care Provider] - PAUL CANNON [CONSULTING PHYSICIAN] - Call for Appointment
[2023-02-28 07:52] VITALS: BP 160/70; PULSE 63; O2SAT 100
[2023-02-28] MEDS: LASIX 20 MG PO SCH ×2 (08:03→08:06)
[2023-02-28] MEDS: Maxzide-25MG Tablet PO SCH (08:04)
[2023-02-28] MEDS: COREG 12.5 MG PO SCH (08:04)
[2023-02-28] MEDS: NEURONTIN PO SCH (08:04)
[2023-02-28] MEDS: NORVASC 5 MG PO SCH (08:04)
[2023-02-28] MEDS: HYDROCODONE-ACETAMIN 10-325 MG PO PRN (08:04)
[2023-02-28] MEDS: CLONIDINE 0.1 MG TABLET PO SCH (08:04)
[2023-02-28] MEDS: PROTONIX 40 MG IV IV SCH (08:06)
--- NOTE | 2023-03-01 08:58 | OP ---
SURGERY DATE/TIME: 02/26/2023 1643 PREOPERATIVE DIAGNOSIS: Anemia. POSTOPERATIVE DIAGNOSIS: There is a very light gastroesophageal reflux disease at grade 2 over 4. Normal examination. PROCEDURE: EGD. SURGEON: Declan Castellanos M.D. ANESTHESIA: COMPLICATIONS: None. CONDITION: Stable. INDICATION: A 78-year-old in the hospital. She had had a scope about nine months ago. She does have a fair amount of diarrhea. She did not want to take the prep or have a scope at this time. She did want to have the upper scope. She does have anemia. DESCRIPTION OF PROCEDURE: She is taken to endoscopy. Left lateral decubitus position. Claudio Felipe CRNA. Time out performed. Anesthetic started. Scope introduced. Pharyngoesophageal junction normal. Esophagus normal down to gastroesophageal junction. Grade 2 over 4 gastroesophageal reflux disease. Fundus, body and antrum normal. Pylorus normal. Duodenal bulb normal. Second portion normal. Scope withdrawn looped upon itself. No hiatal hernia from below. Scope withdrawn. PLAN: Treatment per medical.
== END 2023-02-28 08:42 ==
LOC: ED 11:05 → MED SURG 16:55
PROVIDERS: ADMIT Family Medicine; ATTEND Family Medicine
DX: D64.9 Anemia, unspecified (principal); K92.2 Gastrointestinal hemorrhage, unspecified; K21.00 Gastro-esophageal reflux disease with esophagitis, without bleeding; E78.5 Hyperlipidemia, unspecified; I10 Essential (primary) hypertension; I73.9 Peripheral vascular disease, unspecified; I25.10 Atherosclerotic heart disease of native coronary artery without angina pectoris; Z20.828 Contact with and (suspected) exposure to other viral communicable diseases; Z79.899 Other long term (current) drug therapy; Z79.01 Long term (current) use of anticoagulants
CPT/HCPCS: 0241U; 36000; 36415; 36430; 43235; 80053; 82607; 82728; 82746; 82947; 83540; 83550; 85014; 85018; 85025; 85045; 85046; 86850; 86900; 86901; 86922; 94760; 96374; 96375; 99284; G0378; P9016; J1940; J2704; A9270-GY